=== PATIENT | male | born 1990 | race Caucasian/White ===

== ENCOUNTER 2016-12-25 12:39 | Emergency (ER) | payer SELFPAY ==
--- NOTE | 2016-12-25 13:49 | Emergency Department Report ---
Chief Complaint: Skin Rash Stated Complaint: RASH Time Seen by Provider: 12/25/16 13:44 - HPI History of Present Illness: PT states he is in town visiting grandfather. PT states 2 days ago he noticed a painless sore on his testicle. PT c/o rash x 4 days. PT states he was dx with HIV in 2013 - ROS Review of Systems: + f/ c - dysuria - Exam Vital Signs: Vital Signs 12/25/16 12:42 Temperature 99.3 F Pulse Rate 134 H Respiratory 22 Rate O2 Sat by Pulse 100 Oximetry Physical Exam: PT looks well, non toxic. rash noted to R palm, and trunk MSE screening note: Focused history and physical exam performed. Due to findings the following was ordered: labs ED Disposition for MSE Condition: Stable
[2016-12-25 14:01] VITALS: BP 146/89
[2016-12-25 14:17] LABS: Basophils % (Auto) 0.1 % (0.0-1.8); Eosinophils % (Auto) 0.3 % (0.0-4.3); Hematocrit 40.1 % (35.5-45.6); Hemoglobin 13.7 gm/dl (11.8-15.2); Mean Corpuscular HGB Conc 34 % (32-34); Mean Corpuscular Hemoglobin 32 pg (28-32); Mean Corpuscular Volume 93 fl (84-94); Platelet Count 291 K/mm3 (140-440); Red Blood Count 4.32 M/mm3 (3.65-5.03); Red Cell Distribution Width 12.5 % (13.2-15.2); White Blood Count 8.4 K/mm3 (4.5-11.0)
[2016-12-25 14:31] LABS: Anion Gap 15 mmol/L; BUN/Creatinine Ratio 11.42; Blood Urea Nitrogen 8 mg/dL (9-20); Calcium 9.3 mg/dL (8.4-10.2); Carbon Dioxide 26 mmol/L (22-30); Chloride 100.2 mmol/L (98-107); Glucose 115 mg/dL (75-100); Potassium 3.4 mmol/L (3.6-5.0); Sodium 138 mmol/L (137-145)
[2016-12-25] MEDS ORDERED: BICILLIN L-A IM ONE (15:36)
--- NOTE | 2016-12-25 15:37 | Emergency Department Report ---
- General Chief complaint: Skin Rash Stated complaint: RASH Time Seen by Provider: 12/25/16 13:44 Source: patient Mode of arrival: Ambulatory Limitations: No Limitations - History of Present Illness Initial comments: Patient reports an open ulcer on the left testicle and a rash on his chest and back MD complaint: rash, lesion Onset/Timin -: days(s) Location: chest, back, genitals Severity: severe Severity scale (0 -10): 7 Quality: aching Consistency: constant Improves with: none Worsens with: none Context: other (STI) Associated symptoms: denies other symptoms Treatments Prior to Arrival: none - Related Data Allergies Allergy/AdvReac Type Severity Reaction Status Date / Time No Known Allergies Allergy Unverified 12/25/16 12:42 Abscess Boil HPI - HPI Chief Complaint: Skin Rash Stated Complaint: RASH Time Seen by Provider: 12/25/16 13:44 Allergies/Adverse Reactions: Allergies Allergy/AdvReac Type Severity Reaction Status Date / Time No Known Allergies Allergy Unverified 12/25/16 12:42 ED Review of Systems ROS: Stated complaint: RASH Other details as noted in HPI Constitutional: denies: chills, diaphoresis, fever, malaise, weakness Eyes: denies: eye pain, eye discharge, vision change ENT: denies: ear pain, throat pain, dental pain, hearing loss, epistaxis, congestion Respiratory: denies: cough, orthopnea, shortness of breath, SOB with exertion, SOB at rest, stridor, wheezing Cardiovascular: denies: chest pain, palpitations, dyspnea on exertion, orthopnea Gastrointestinal: denies: abdominal pain, nausea, vomiting, diarrhea, constipation, hematemesis, melena Musculoskeletal: denies: back pain, joint swelling, arthralgia Skin: rash (chest and back), lesions (chest and left testicle). denies: change in color, change in hair/nails, pruritus Neurological: denies: headache, weakness, numbness, paresthesias, confusion Hematological/Lymphatic: denies: easy bleeding ED Past Medical Hx - Past Medical History Previous Medical History?: Yes Hx HIV: Yes - Surgical History Past Surgical History?: No Additional Surgical History: HERNIA - Social History Smoking Status: Current Every Day Smoker Substance Use Type: Alcohol, Marijuana, Prescribed ED Physical Exam - General Limitations: No Limitations General appearance: alert, in no apparent distress - Head Head exam: Present: atraumatic - Eye Eye exam: Present: normal appearance Pupils: Present: normal accommodation - ENT ENT exam: Present: normal exam, normal orophraynx, mucous membranes moist. Absent: mucous membranes dry - Neck Neck exam: Present: normal inspection, full ROM. Absent: tenderness, meningismus, lymphadenopathy, thyromegaly - Respiratory Respiratory exam: Present: normal lung sounds bilaterally. Absent: respiratory distress, wheezes, rales, rhonchi, stridor, chest wall tenderness, accessory muscle use, decreased breath sounds - Cardiovascular Cardiovascular Exam: Present: regular rate, normal rhythm, normal heart sounds. Absent: systolic murmur, diastolic murmur, rubs, gallop - exam: Present: testicular tenderness, other (1 cm open lesion left testicle) . Absent: urethral discharge, scrotal swelling, vertical testicular lie, circumcision - Extremities Exam Extremities exam: Present: normal inspection, full ROM, normal capillary refill. Absent: tenderness, pedal edema, joint swelling, calf tenderness - Back Exam Back exam: Present: normal inspection. Absent: CVA tenderness (R), CVA tenderness (L) - Neurological Exam Neurological exam: Present: alert, oriented X3, CN II-XII intact, normal gait, reflexes normal. Absent: motor sensory deficit - Psychiatric Psychiatric exam: Present: normal affect, normal mood. Absent: depressed, agitated - Skin Skin exam: Present: warm, dry, normal color, rash (maculopapular lesions chest and back), other (1 cm open lesion to mid-sternum chest wall) ED Course Vital Signs 12/25/16 12/25/16 13:46 13:58 Temperature 97.8 F Pulse Rate 87 85 Respiratory 16 Rate Blood Pressure 146/89 Blood Pressure 146/89 [Right] O2 Sat by Pulse 98 98 Oximetry - Reevaluation(s) Reevaluation #1: 12/25/16 16:04 laboratory studies and antibiotic injection ED Medical Decision Making - Lab Data Result diagrams: 12/25/16 14:02 12/25/16 14:02 Lab Results 12/25/16 12/25/16 Range/Units 14:02 14:02 WBC 8.4 (4.5-11.0) K/mm3 RBC 4.32 (3.65-5.03) M/mm3 Hgb 13.7 (11.8-15.2) gm/dl Hct 40.1 (35.5-45.6) % MCV 93 (84-94) fl MCH 32 (28-32) pg MCHC 34 (32-34) % RDW 12.5 L (13.2-15.2) % Plt Count 291 (140-440) K/mm3 Lymph % (Auto) 25.7 (13.4-35.0) % [place] % (Auto) 8.4 H (0.0-7.3) % Eos % (Auto) 0.3 (0.0-4.3) % Baso % (Auto) 0.1 (0.0-1.8) % Lymph # 2.2 (1.2-5.4) K/mm3 [place] # 0.7 (0.0-0.8) K/mm3 Eos # 0.0 (0.0-0.4) K/mm3 Baso # 0.0 (0.0-0.1) K/mm3 Seg Neutrophils % 65.5 (40.0-70.0) % Seg Neutrophils # 5.5 (1.8-7.7) K/mm3 Sodium 138 (137-145) mmol/L Potassium 3.4 L (3.6-5.0) mmol/L Chloride 100.2 (98-107) mmol/L Carbon Dioxide 26 (22-30) mmol/L Anion Gap 15 mmol/L BUN 8 L (9-20) mg/dL Creatinine 0.7 L (0.8-1.5) mg/dL Estimated GFR > 60 ml/min BUN/Creatinine Ratio 11.42 % Glucose 115 H (75-100) mg/dL Calcium 9.3 (8.4-10.2) mg/dL Vital Signs 12/25/16 12/25/16 13:46 13:58 Temperature 97.8 F Pulse Rate 87 85 Respiratory 16 Rate Blood Pressure 146/89 Blood Pressure 146/89 [Right] O2 Sat by Pulse 98 98 Oximetry - Medical Decision Making During the course of ED, laboratory and antibiotic injection were ordered based on physical examination. The RPR will not be resulted until tomorrow. Patient was instructed to follow up at the local health department for further testing of STIs, as well as have sexual partner seek treatment - Differential Diagnosis Syphillis, Chanchroid Critical care attestation.: If time is entered above; I have spent that time in minutes in the direct care of this critically ill patient, excluding procedure time. ED Disposition Clinical Impression: Syphilis Disposition: DC-01 TO HOME OR SELFCARE Is pt being admited?: No Does the pt Need Aspirin: No Condition: Stable Instructions: Syphilis (ED) Additional Instructions: Follow up with the local health department for further evaluation of sexual transmitted infections. Have your sexual partner seek treatment as well. Referrals: PRIMARY CARE, [Primary Care Provider] - 3-5 Days [facility] [Outside] - 3-5 Days [facility] [Outside] - 3-5 Days Forms: Work/School Release Form(ED) Time of Disposition: 16:07
[2016-12-26 11:55] LABS: Rapid Plasma Reagin Reactive (Nonreactive)
[2016-12-26 11:56] LABS: Rapid Plasma Reagin Ab Titer 1:32
== END 2016-12-25 16:18 | disposition home or self-care (01) ==
LOC: ED 12:39
DX: A53.9 Syphilis, unspecified (principal); F17.200 Nicotine dependence, unspecified, uncomplicated; F12.10 Cannabis abuse, uncomplicated
CPT/HCPCS: 36415; 80048; 85025; 86592; 86593; 96372; 99283; J0561

== ENCOUNTER 2017-01-06 11:41 | Inpatient (IN) | payer OTHER ==
--- NOTE | 2017-01-06 13:23 | XRay Report ---
Right knee 3 views: History: Knee swollen and painful. Findings: Large joint effusion. Normal articular surfaces. Bony density at the tibial tuberosity probably an avulsion fracture of tibial tuberosity or avulsion of tibial tuberosity unfused epiphyses. Impression: Findings as detailed above.
[2017-01-06 13:33] LABS: Basophils % (Auto) 0.2 % (0.0-1.8); Eosinophils % (Auto) 0.1 % (0.0-4.3); Hematocrit 36.7 % (35.5-45.6); Hemoglobin 12.3 gm/dl (11.8-15.2); Mean Corpuscular HGB Conc 33 % (32-34); Mean Corpuscular Hemoglobin 31 pg (28-32); Mean Corpuscular Volume 92 fl (84-94); Platelet Count 333 K/mm3 (140-440); Red Blood Count 3.98 M/mm3 (3.65-5.03); Red Cell Distribution Width 12.7 % (13.2-15.2); White Blood Count 10.9 K/mm3 (4.5-11.0)
[2017-01-06 13:43] LABS: INR 1.27 (0.87-1.13)
[2017-01-06 13:48] LABS: Alanine Aminotransferase 24 units/L (7-56); Albumin/Globulin Ratio 0.8 %; Alkaline Phosphatase 81 units/L (35-129); Anion Gap 20 mmol/L; BUN/Creatinine Ratio 7.14; Blood Urea Nitrogen 5 mg/dL (9-20); Carbon Dioxide 24 mmol/L (22-30); Chloride 94.4 mmol/L (98-107); Glucose 89 mg/dL (75-100); Potassium 3.5 mmol/L (3.6-5.0); Sodium 135 mmol/L (137-145); Total Protein 9.3 g/dL (6.3-8.2)
[2017-01-06] MEDS ORDERED: NACL 0.9% 1000 ML 1,000 ML IV ONE (13:54)
[2017-01-06] MEDS ORDERED: ZOFRAN IV ONE (13:56)
[2017-01-06] MEDS ORDERED: MORPHINE IV ONE (13:56)
[2017-01-06] MEDS ORDERED: XYLOCAINE 1% 20 mL INFILTRATI ONE ×2 (14:15→21:00)
[2017-01-06] MEDS ORDERED: MOTRIN PO ONE (14:30)
[2017-01-06] MEDS ORDERED: VANCOMYCIN/NS 1 GM/250 ML 1 GM/250 ML BAG IV ONE (14:36)
[2017-01-06 15:49] LABS: Bilirubin,Urine NEG (Negative); Blood,Urine NEG (Negative); Ketones,Urine NEG (Negative); Leukocyte Esterase,Urine NEG (Negative); Nitrite,Urine NEG (Negative)
[2017-01-06] MEDS ORDERED: SODIUM CHLORIDE FLUSH SYRINGE 10 ML IV PRN (16:43)
[2017-01-06 17:12] LABS: Basophils Body Fluid 0 %; Eosinophils Body Fluid 0 %; Reactive Lymph Body Fluid 0 %
--- NOTE | 2017-01-06 19:31 | Emergency Department Report ---
Entered by PATRICIA WILKERSON, acting as scribe for KORIN REYES NP. <KAY PECK - Last Filed: 01/06/17 18:21> ED Lower Extremity HPI - General Chief Complaint: Extremity Injury, Lower Stated Complaint: right knee pain Time Seen by Provider: 01/06/17 13:50 - Related Data Allergies Allergy/AdvReac Type Severity Reaction Status Date / Time No Known Allergies Allergy Unverified 12/25/16 12:42 ED Review of Systems ROS: Stated complaint: right knee pain Other details as noted in HPI ED Course Vital Signs 01/06/17 01/06/17 12:22 17:25 Temperature 100.5 F H 99.2 F Pulse Rate 95 H 88 Respiratory 20 20 Rate Blood Pressure 160/99 Blood Pressure 136/84 [Left] O2 Sat by Pulse 100 99 Oximetry ED Lower Extremity MDM - Lab Data Result diagrams: 01/06/17 13:11 01/06/17 13:11 - Medical Decision Making I have seen and examined this patient myself. I agree with the PA or [employer] plan as discussed. Patient with fever and significant knee pain. Patient had sudden onset of right knee swelling. No obvious explanation. Very tender to palpation and has difficulty flexing or extending the knee. Arthrocentesis performed and shows WBCs of 36,000. Discussed case with orthopedist office professionals plan treat with IV vancomycin and admitted to the hospitalist service. Jp Peck Critical care attestation.: If time is entered above; I have spent that time in minutes in the direct care of this critically ill patient, excluding procedure time. ED Disposition Clinical Impression: Elevated lactic acid level, Pain and swelling of right knee, Knee effusion, right, HIV (human immunodeficiency virus infection) Fever Qualifiers: Fever type: unspecified Qualified Code(s): R50.9 - Fever, unspecified Disposition: - OP ADMIT IP TO THIS HOSP Condition: Stable <KORIN REYES - Last Filed: 01/06/17 19:30> ED Lower Extremity HPI - General Source: EMS Mode of arrival: Wheelchair Limitations: No Limitations - History of Present Illness Initial Comments: 26 y/o male with PMHx of HIV, presents to the ED c/o right knee pain and swelling x 2 days. Associated symptoms include cough and chills but denies numbness, tingling, nausea and vomiting. Patient was found to be febrile in triage. States he has been having pain since 2 days ago but notice swelling this morning. No alleviating or aggravating factors. NKDA. Denies injury. Patient is unable to bear weight. Recent move from [place]. Currently off antivirals Complaint: other (right knee pain and swelling) Onset/Timin -: days(s) Injury: Knee: Right Type of Injury: unknown Place: home Severity: severe Severity scale (0 -10): 10 Improves With: nothing Worsens With: weight bearing, movement, palpation Context: other (none, pt thought he slept wrong ) Associated Symptoms: swelling, unable to bear weight, other (cough, fever, chills, denies: nausea, vomiting). denies: numbness, tingling ED Review of Systems Comment: All other systems reviewed and negative Constitutional: chills, fever Respiratory: cough Gastrointestinal: denies: nausea, vomiting Musculoskeletal: other (right knee pain and swelling, denies: numbness, tingling ) ED Past Medical Hx - Past Medical History Hx HIV: Yes - Surgical History Additional Surgical History: HERNIA - Social History Smoking Status: Current Every Day Smoker Substance Use Type: Alcohol ED Physical Exam - General Limitations: No Limitations General appearance: alert, in no apparent distress - Head Head exam: Present: atraumatic, normocephalic, normal inspection - Eye Eye exam: Present: normal appearance, PERRL, EOMI. Absent: scleral icterus, conjunctival injection, nystagmus, periorbital swelling, periorbital tenderness Pupils: Present: normal accommodation - ENT ENT exam: Present: normal exam, normal orophraynx, mucous membranes moist, normal external ear exam - Neck Neck exam: Present: normal inspection, full ROM. Absent: tenderness, meningismus, lymphadenopathy, thyromegaly - Respiratory Respiratory exam: Present: normal lung sounds bilaterally. Absent: respiratory distress, wheezes, rales, rhonchi, stridor, chest wall tenderness, accessory muscle use, decreased breath sounds, prolonged expiratory - Cardiovascular Cardiovascular Exam: Present: regular rate, normal rhythm, normal heart sounds. Absent: bradycardia, tachycardia, irregular rhythm, systolic murmur, diastolic murmur, rubs, gallop - GI/Abdominal GI/Abdominal exam: Present: soft, normal bowel sounds. Absent: distended, tenderness, guarding, rebound, rigid, diminished bowel sounds - Extremities Exam Extremities exam: Present: normal capillary refill, other (decreased room of motion to right knee). Absent: normal inspection, full ROM, tenderness, pedal edema, joint swelling, calf tenderness - Expanded Lower Extremity Exam Right Hip exam: Present: normal inspection, full ROM Upper Leg exam: Present: normal inspection, full ROM Knee exam: Present: tenderness, swelling, effusion. Absent: normal inspection, full ROM Lower Leg exam: Present: normal inspection, full ROM Ankle exam: Present: normal inspection, full ROM Foot/Toe exam: Present: normal inspection, full ROM Neuro vascular tendon exam: Present: no vascular compromise Gait: Positive: unable to bear weight - Back Exam Back exam: Present: normal inspection, full ROM. Absent: tenderness, CVA tenderness (R), CVA tenderness (L), muscle spasm, paraspinal tenderness, vertebral tenderness, rash noted - Neurological Exam Neurological exam: Present: alert, oriented X3 - Psychiatric Psychiatric exam: Present: normal affect, normal mood - Skin Skin exam: Present: warm, dry, intact, normal color. Absent: rash ED Course - Reevaluation(s) Reevaluation #1: 01/06/17 14:18 Dr Peck at bedside to evaluate pt. Reevaluation #2: 01/06/17 14:32 PT aware of need for admission. No questions at this time. - Consultations Consultation #1: 01/06/17 15:57 Dr Serrano - admit to hospitalist Consultation #2: 01/06/17 16:04 Dr Vela - to admit 01/06/17 16:42 Dr Vela at bedside - Joint Aspiration/Injection Consent Obtained: verbal consent Indications: R/O septic arthritis Side of Body: right Joint Aspirated: knee Ultrasound Guidance: No Skin Prep: Povidone-Iodine1% Local Anesthesia Used: Lidocaine 1% Amount of Anesthesia Used (mls): 3 Needle Size Used: 18G Syringe Size Used: 10cc Fluid Obtained: turbid Total Fluid Obtained (mls): 10 Patient Tolerated Procedure: well Complications: none - Pulse Oximetry Interpretation Digit-Finger Initial Pulse Oximetry Readin Actions Taken: none ED Lower Extremity MDM - Lab Data Result diagrams: 01/06/17 13:11 01/06/17 13:11 Laboratory Results - last 24 hr 01/06/17 01/06/17 01/06/17 13:11 13:11 13:11 WBC 10.9 RBC 3.98 Hgb 12.3 Hct 36.7 MCV 92 MCH 31 MCHC 33 RDW 12.7 L Plt Count 333 Lymph % (Auto) 23.3 [place] % (Auto) 9.7 H Eos % (Auto) 0.1 Baso % (Auto) 0.2 Lymph # 2.5 [place] # 1.1 H Eos # 0.0 Baso # 0.0 Seg Neutrophils % 66.7 Seg Neutrophils # 7.3 PT 15.8 H INR 1.27 H VBG pH Sodium 135 L Potassium 3.5 L Chloride 94.4 L Carbon Dioxide 24 Anion Gap 20 BUN 5 L Creatinine 0.7 L Estimated GFR > 60 BUN/Creatinine Ratio 7.14 Glucose 89 Lactic Acid Calcium 9.0 Total Bilirubin 1.20 AST 27 ALT 24 Alkaline Phosphatase 81 Total Protein 9.3 H Albumin 4.0 Albumin/Globulin Ratio 0.8 Urine Color Urine Turbidity Urine pH Ur Specific [place] Urine Protein Urine Glucose (UA) Urine Ketones Urine Blood Urine Nitrite Urine Bilirubin Urine Urobilinogen Ur Leukocyte Esterase Urine WBC (Auto) Urine RBC (Auto) Fluid Type Fluid Color Fluid Appearance Fluid WBC Fluid RBC Fluid Seg Neutrophils Fluid Lymphocytes Fluid Reactive Lymphs Fluid Monocytes Fluid Eosinophils Fluid Basophils Synovial Crystals 01/06/17 01/06/17 01/06/17 13:11 13:11 14:40 WBC RBC Hgb Hct MCV MCH MCHC RDW Plt Count Lymph % (Auto) [place] % (Auto) Eos % (Auto) Baso % (Auto) Lymph # [place] # Eos # Baso # Seg Neutrophils % Seg Neutrophils # PT INR VBG pH 7.415 Sodium Potassium Chloride Carbon Dioxide Anion Gap BUN Creatinine Estimated GFR BUN/Creatinine Ratio Glucose Lactic Acid 2.40 H* Calcium Total Bilirubin AST ALT Alkaline Phosphatase Total Protein Albumin Albumin/Globulin Ratio Urine Color Urine Turbidity Urine pH Ur Specific [place] Urine Protein Urine Glucose (UA) Urine Ketones Urine Blood Urine Nitrite Urine Bilirubin Urine Urobilinogen Ur Leukocyte Esterase Urine WBC (Auto) Urine RBC (Auto) Fluid Type Synovial Fluid Color Straw Fluid Appearance Cloudy Fluid WBC 54145 Fluid RBC 74280 Fluid Seg Neutrophils 95.0 Fluid Lymphocytes 4.0 Fluid Reactive Lymphs 0 Fluid Monocytes 1.0 Fluid Eosinophils 0 Fluid Basophils 0 Synovial Crystals Negative 01/06/17 14:50 WBC RBC Hgb Hct MCV MCH MCHC RDW Plt Count Lymph % (Auto) [place] % (Auto) Eos % (Auto) Baso % (Auto) Lymph # [place] # Eos # Baso # Seg Neutrophils % Seg Neutrophils # PT INR VBG pH Sodium Potassium Chloride Carbon Dioxide Anion Gap BUN Creatinine Estimated GFR BUN/Creatinine Ratio Glucose Lactic Acid Calcium Total Bilirubin AST ALT Alkaline Phosphatase Total Protein Albumin Albumin/Globulin Ratio Urine Color Yellow Urine Turbidity Clear Urine pH 6.0 Ur Specific [place] 1.016 Urine Protein 30 mg/dl Urine Glucose (UA) Neg Urine Ketones Neg Urine Blood Neg Urine Nitrite Neg Urine Bilirubin Neg Urine Urobilinogen 4.0 Ur Leukocyte Esterase Neg Urine WBC (Auto) 7.0 H Urine RBC (Auto) 5.0 Fluid Type Fluid Color Fluid Appearance Fluid WBC Fluid RBC Fluid Seg Neutrophils Fluid Lymphocytes Fluid Reactive Lymphs Fluid Monocytes Fluid Eosinophils Fluid Basophils Synovial Crystals - EKG Data -: EKG Interpreted by Me (and ED MD ) EKG shows normal: sinus rhythm Rate: normal - EKG Data When compared to previous EKG there are: previous EKG unavailable - Radiology Data Radiology results: report reviewed XR R - Knee - large joint effusion - Differential Diagnosis septic joint, oa, cellulitis ED Disposition Is pt being admited?: No Does the pt Need Aspirin: No Time of Disposition: 16:43 This documentation as recorded by the ROCK coyle ELIZABETH,accurately reflects the service I personally performed and the decisions made by ERIC lisa TRACY M, NP.
[2017-01-06] MEDS ORDERED: MILK OF MAGNESIA PO PRN (20:40)
[2017-01-06] MEDS ORDERED: DULCOLAX PR PRN (20:40)
--- NOTE | 2017-01-06 20:40 | History and Physical Report ---
History of Present Illness Date of examination: 01/06/17 Date of admission: 01/06/17 16:43 Chief complaint: Rt Knee pain 2 days History of present illness: History of Present Illness Initial Comments: 26 y/o male with PMHx of HIV, presents to the ED c/o right knee pain and swelling x 2 days. Associated symptoms include cough and chills but denies numbness, tingling, nausea and vomiting. Patient was found to be febrile in triage. States he has been having pain since 2 days ago but notice swelling this morning. No alleviating or aggravating factors. NKDA. Denies injury. Patient is unable to bear weight. Recent move from [place]. Currently off antivirals Complaint: other (right knee pain and swelling) Onset/Timin -: days(s) Injury: Knee: Right Type of Injury: unknown Place: home Severity: severe Severity scale (0 -10): 10 Improves With: nothing Worsens With: weight bearing, movement, palpation Context: other (none, pt thought he slept wrong ) Associated Symptoms: swelling, unable to bear weight, other (cough, fever, chills, denies: nausea, vomiting). denies: numbness, tingling Review of Systems Comment: All other systems reviewed and negative Constitutional: chills, fever Respiratory: cough Gastrointestinal: denies: nausea, vomiting Musculoskeletal: other (right knee pain and swelling, denies: numbness, tingling ) - Past Medical History Hx HIV: Yes - Surgical History Additional Surgical History: HERNIA - Social History Smoking Status: Current Every Day Smoker Substance Use Type: Alcohol Fam Hx HTN Medications and Allergies Allergies Allergy/AdvReac Type Severity Reaction Status Date / Time No Known Allergies Allergy Unverified 12/25/16 12:42 Active Meds: Active Medications Sodium Chloride (Sodium Chloride Flush Syringe 10 Ml) 10 ml IV PRN PRN PRN Reason: LINE FLUSH Exam - Constitutional Vitals: Temp Pulse Resp BP Pulse Ox 99.2 F 88 20 136/84 99 01/06/17 17:25 01/06/17 17:25 01/06/17 17:25 01/06/17 17:25 01/06/17 17:25 General appearance: Present: no acute distress, well-nourished - EENT Eyes: Present: PERRL ENT: hearing intact, clear oral mucosa - Neck Neck: Present: supple, normal ROM - Respiratory Respiratory effort: normal Respiratory: bilateral: CTA - Cardiovascular Heart rate: 75 Rhythm: regular Heart Sounds: Present: S1 & S2. Absent: rub, click - Extremities Extremities: no ischemia, pulses intact, pulses symmetrical, No edema, abnormal (Rt Knee swollen and tender.Warm to touch.) Extremity abnormal: tenderness (Rt Knee swelling plus) Peripheral Pulses: within normal limits - Abdominal General gastrointestinal: Present: soft, non-tender, non-distended, normal bowel sounds Male genitourinary: Present: normal - Integumentary Integumentary: Present: clear, warm, dry - Musculoskeletal Musculoskeletal: gait normal, strength equal bilaterally - Psychiatric Psychiatric: appropriate mood/affect, intact judgment & insight - Neurologic Neurologic: CNII-XII intact, moves all extremities Results - Labs CBC & Chem 7: 01/06/17 13:11 01/06/17 13:11 Labs: Laboratory Last Values WBC 10.9 K/mm3 (4.5-11.0) 01/06/17 13:11 RBC 3.98 M/mm3 (3.65-5.03) 01/06/17 13:11 Hgb 12.3 gm/dl (11.8-15.2) 01/06/17 13:11 Hct 36.7 % (35.5-45.6) 01/06/17 13:11 MCV 92 fl (84-94) 01/06/17 13:11 MCH 31 pg (28-32) 01/06/17 13:11 MCHC 33 % (32-34) 01/06/17 13:11 RDW 12.7 % (13.2-15.2) L 01/06/17 13:11 Plt Count 333 K/mm3 (140-440) 01/06/17 13:11 Lymph % (Auto) 23.3 % (13.4-35.0) 01/06/17 13:11 [place] % (Auto) 9.7 % (0.0-7.3) H 01/06/17 13:11 Eos % (Auto) 0.1 % (0.0-4.3) 01/06/17 13:11 Baso % (Auto) 0.2 % (0.0-1.8) 01/06/17 13:11 Lymph # 2.5 K/mm3 (1.2-5.4) 01/06/17 13:11 [place] # 1.1 K/mm3 (0.0-0.8) H 01/06/17 13:11 Eos # 0.0 K/mm3 (0.0-0.4) 01/06/17 13:11 Baso # 0.0 K/mm3 (0.0-0.1) 01/06/17 13:11 Seg Neutrophils % 66.7 % (40.0-70.0) 01/06/17 13:11 Seg Neutrophils # 7.3 K/mm3 (1.8-7.7) 01/06/17 13:11 PT 15.8 Sec. (12.2-14.9) H 01/06/17 13:11 INR 1.27 (0.87-1.13) H 01/06/17 13:11 VBG pH 7.415 (7.320-7.420) 01/06/17 13:11 Sodium 135 mmol/L (137-145) L 01/06/17 13:11 Potassium 3.5 mmol/L (3.6-5.0) L 01/06/17 13:11 Chloride 94.4 mmol/L (98-107) L 01/06/17 13:11 Carbon Dioxide 24 mmol/L (22-30) 01/06/17 13:11 Anion Gap 20 mmol/L 01/06/17 13:11 BUN 5 mg/dL (9-20) L 01/06/17 13:11 Creatinine 0.7 mg/dL (0.8-1.5) L 01/06/17 13:11 Estimated GFR > 60 ml/min 01/06/17 13:11 BUN/Creatinine Ratio 7.14 % 01/06/17 13:11 Glucose 89 mg/dL (75-100) 01/06/17 13:11 Lactic Acid 0.80 mmol/L (0.7-2.0) 01/06/17 20:00 Calcium 9.0 mg/dL (8.4-10.2) 01/06/17 13:11 Total Bilirubin 1.20 mg/dL (0.1-1.2) 01/06/17 13:11 AST 27 units/L (5-40) 01/06/17 13:11 ALT 24 units/L (7-56) 01/06/17 13:11 Alkaline Phosphatase 81 units/L (35-129) 01/06/17 13:11 Total Protein 9.3 g/dL (6.3-8.2) H 01/06/17 13:11 Albumin 4.0 g/dL (3.9-5) 01/06/17 13:11 Albumin/Globulin Ratio 0.8 % 01/06/17 13:11 Urine Color Yellow (Yellow) 01/06/17 14:50 Urine Turbidity Clear (Clear) 01/06/17 14:50 Urine pH 6.0 (5.0-7.0) 01/06/17 14:50 Ur Specific [place] 1.016 (1.003-1.030) 01/06/17 14:50 Urine Protein 30 mg/dl mg/dL (Negative) 01/06/17 14:50 Urine Glucose (UA) Neg mg/dL (Negative) 01/06/17 14:50 Urine Ketones Neg mg/dL (Negative) 01/06/17 14:50 Urine Blood Neg (Negative) 01/06/17 14:50 Urine Nitrite Neg (Negative) 01/06/17 14:50 Urine Bilirubin Neg (Negative) 01/06/17 14:50 Urine Urobilinogen 4.0 mg/dL (<2.0) 01/06/17 14:50 Ur Leukocyte Esterase Neg (Negative) 01/06/17 14:50 Urine WBC (Auto) 7.0 /HPF (0.0-6.0) H 01/06/17 14:50 Urine RBC (Auto) 5.0 /HPF (0.0-6.0) 01/06/17 14:50 Fluid Type Synovial 01/06/17 14:40 Fluid Color Straw 01/06/17 14:40 Fluid Appearance Cloudy 01/06/17 14:40 Fluid WBC 50345 /mm3 01/06/17 14:40 Fluid RBC 81675 /mm3 01/06/17 14:40 Fluid Seg Neutrophils 95.0 % 01/06/17 14:40 Fluid Lymphocytes 4.0 % 01/06/17 14:40 Fluid Reactive Lymphs 0 % 01/06/17 14:40 Fluid Monocytes 1.0 % 01/06/17 14:40 Fluid Eosinophils 0 % 01/06/17 14:40 Fluid Basophils 0 % 01/06/17 14:40 Synovial Crystals Negative (NONE SEEN) 01/06/17 14:40 - Imaging and Cardiology Imaging and Cardiology: Rt Knee xray -Large joint effusion Assessment and Plan Advance Directives: Yes (Full code) Plan of care discussed with patient/family: Yes - Patient Problems (1) Septic arthritis Current Visit: Yes Status: Acute Qualifiers: Septic arthritis location: knee Septic arthritis organism: S Laterality: right Plan to address problem: Orthopedics Dr Serrano consulted. IV Unasyn and Vancomycin initiated (2) HIV (human immunodeficiency virus infection) Current Visit: Yes Status: Chronic Plan to address problem: Not on any anti retrovirals.Moved from [place] recently. To f/u with ID clinic as out patient (3) DVT prophylaxis Current Visit: Yes Status: Acute Plan to address problem: on Heparin
--- NOTE | 2017-01-06 21:14 | Consultation ---
History of Present Illness - [facility] Consult date: 01/06/17 Consult reason: joint pain History of present illness: 26-year-old male who complains of severe right knee pain and swelling past couple days patient denies a history of trauma or previous episodes, he also denies a history of gout or other rheumatological problems. Patient is HIV positive Medications and Allergies Allergies Allergy/AdvReac Type Severity Reaction Status Date / Time No Known Allergies Allergy Unverified 12/25/16 12:42 Active Meds: Active Medications Acetaminophen (Tylenol) 650 mg PO Q4H PRN PRN Reason: Pain MILD(1-3)/Fever >100.5/SINGH Bisacodyl (Dulcolax) 10 mg IA QDAY PRN PRN Reason: Constipation unrelieved by MOM Hydromorphone HCl (Dilaudid) 1 mg IV Q3H PRN PRN Reason: Pain , Severe (7-10) Ampicillin Sodium/Sulbactam Sodium (Unasyn/Ns 3 Gm/100 Ml) 3 gm in 100 mls @ 100 mls/hr IV Q6HR BRIANNE PRN Reason: Protocol Magnesium Hydroxide (Milk Of Magnesia) 30 ml PO Q4H PRN PRN Reason: Constipation Ondansetron HCl (Zofran) 4 mg IV Q8H PRN PRN Reason: N/V unrelieved by Reglan Oxycodone/Acetaminophen (Percocet 5/325) 1 tab PO Q6H PRN PRN Reason: Pain, Moderate (4-6) Sodium Chloride (Sodium Chloride Flush Syringe 10 Ml) 10 ml IV PRN PRN PRN Reason: LINE FLUSH Vancomycin HCl (Vancomycin Pharmacy To Dose) 1 each IV PKCONSULT BRIANNE PRN Reason: Protocol Physical Examination - Physical exam Narrative exam: On physical examination the right knee is noted to have 2-3+ effusion tenderness on passive range of motion. No overlying redness or erythema he is warm to touch Assessment and Plan Right knee swelling and pain Recommendations - approximately 120 mL aspirated from the right knee. Yellow and somewhat turbid and, suspect inflammatory etiology
[2017-01-06] MEDS: DILAUDID IV PRN (21:37)
[2017-01-06] MEDS ORDERED: VANCOMYCIN PHARMACY TO DOSE IV SCH (22:00)
[2017-01-07] MEDS ORDERED: VANCOMYCIN/NS 1 GM/250 ML 1 GM/250 ML BAG IV ONE
[2017-01-07] MEDS: UNASYN/NS 3 GM/100 ML 3 GM/100 ML BAG IV SCH ×5 (00:29→23:34)
[2017-01-07] MEDS: DILAUDID IV PRN ×4 (00:43→21:59)
[2017-01-07] MEDS: PERCOCET 5/325 PO PRN ×2 (04:54→18:20)
--- NOTE | 2017-01-07 07:41 | Admit Criteria Form ---
Admission Criteria Documentation: MUSCULOSKELETAL DISEASE GRG Clinical Indications for Admission to Inpatient Care (Place 'X' for any and all applicable criteria): Hospital admission is needed for appropriate care of the patient because of 1 or more of the following: [ ]I. Fracture, dislocation, or other musculoskeletal injury requiring inpatient care(medical) as indicated by 1 or more of the following(4)(5)(6)(7) [ ]a) Vertebral fracture requiring observation for instability or neurologic compromise (8) [ ]b) Compartment syndrome (proven or cannot be ruled out during observation level of care) (9) [ ]c) Limb-threatening injury [ ]d) Major injury requiring inpatient stabilization such as traction initiation or external fixation before internal fixation or closure of complex or open fracture [ ]e) Major injury requiring inpatient treatment after emergency or observation level care (as appropriate) [ ]f) Severe pain requiring acute inpatient management [ ]g) Injury with suspicion of abuse or neglect (eg., child, dependent elderly) [ ]II. Newly diagnosed or suspected bone, joint, or orthopedic device infection (e.g., osteomyelitis, septic arthritis) needing 1 or more of the following(1)(2)(3) [ ]a) IV antibiotics that cannot be initiated in other than inpatient setting (e.g., patient too unstable or home infusion not available) [ ]b) Device removal or replacement [ ]c) Bone or soft tissue debridement [ ]d) Joint drainage (drain placement or repetitive aspirations) [ ]III. Severe rheumatologic disease (e.g., systemic lupus erythematosus, rheumatoid arthritis) with complications or comorbidities (Also use Optimal Recovery Care Criteria or General Recovery Criteria as appropriate on the basis of predominant condition), including 1 or more of the following( 10)(11)(12)(13) [ ]a) Severe infection (e.g., [employer] infection, sepsis) (14) [ ]b) Respiratory complications, including 1 or more of the following : [ ]i) Pleural effusion with respiratory compromise [ ]ii) Pulmonary hypertension with congestive failure [ ]iii) Respiratory failure [ ]iv) Pulmonary hemorrhage (15) [ ]c) Hematologic disease, including 1 or more of the following: [ ]i) Coagulopathy with bleeding [ ]ii) Thrombosis with hypercoagulable state [ ]iii) Thrombotic thrombocytopenic purpura [ ]d) Cerebritis with seizures, psychosis, or other severe abnormalities [ ]e) Vertebral destruction with monitoring needed for cervical myelopathy& possible respiratory compromise [ ]f) Exacerbation that requires inpatient treatment (e.g., intravenous immunosuppression) (16) [ ]g) Acute renal failure [ ]h) Cerebritis with seizures, psychosis, Altered mental status, or other neurologic abnormalities [ ]i) Pericardial effusion with tamponade [ ]j) Vertebral destruction, with monitoring needed for cervical myelopathy and possible respiratory compromise [ ]IV. Severe vasculitis with complications or comorbidities (Also use Optimal Recovery Care Criteria General Recovery Criteria as appropriate on the basis of predominant condition), including 1 or more of the following(11)(12)(17)(18)(19)(20) [ ]a) Exacerbation that requires inpatient treatment (e.g., intravenous immunosuppression) (19)(21) [ ]b) Pulmonary hemorrhage (15) [ ]c) [employer] vasculitis with seizures, psychosis, Altered mental status that is severe or persistent, or other severe abnormalities (22) [ ]d) Cerebral infarction [ ]e) Gastrointestinal ischemia [ ]f) Gangrene or threatened amputation [ ]g) Renal failure (16) [ ]h) Other significant complications of vasculitis ( eg., tissue or organ ischemia, organ dysfunction ) [ ]V. Severe myopathy as indicated by 1 or more of the following (28)(29) [ ]a) New onset of airway compromise or inability to swallow [ ]b) Respiratory deterioration with observation needed for impending respiratory failure [ ]c) Exacerbation that requires inpatient treatment (e.g., intravenous immunosuppression) [ ]. Severe crystal gout (arthropathy) indicated by 1 or more of the following (23)(24) [ ]a) Severe pain requiring acute inpatient management [ ]b) Exacerbation that requires inpatient treatment (e.g., intravenous treatment) [ ]VII.Rhabdomyolysis and 1 or more of the following (25)(26)(27) [ ]a) Acute renal failure [ ]b) Need for intravenous hydration after emergency or observation level care (as appropriate) [ ]c) Inability to maintain oral hydration [ ]d) Change in mental status [ ]e) Electrolyte abnormality that remains after emergency or observation level care (as appropriate) [ ]VIII Post amputation complication, as indicated by ANY ONE of the following [ ]a) Infection [ ]b) Dehiscence [ ]c) Myodesis failure [X]IX. Severe pain requiring acute inpatient management due to musculoskeletal condition [ ]X. Musculoskeletal Disease and ALL of the following: [ ]a) Symptom or finding for which emergency and observation care have failed or are not considered appropriate (Use General Criteria: Observation Care as appropriate) [ ]b) Presence of ANY ONE of the following [ ]i) A General Admission Criteria [ ]ii) A Pediatric General Admission Criteria The original [facility] content created by [employer] has been revised. The portions of the content which have been revised are identified through the use of italic text or in bold, and [facility] has neither reviewed nor approved the modified material. All other unmodified content is copyright [facility] [email or web address]. Please see references footnoted in the original [facility] edition 2016 Admission Criteria Met: Yes
[2017-01-07] MEDS ORDERED: VANCOMYCIN 1,750 MG in NACL 0.9% 500 ML 500 ML IV SCH (08:00)
[2017-01-07] MEDS: HEPARIN SUB-Q SCH ×2 (08:59→21:43)
[2017-01-07 09:32] LABS: Hematocrit 34.4 % (35.5-45.6); Hemoglobin 11.5 gm/dl (11.8-15.2); Mean Corpuscular HGB Conc 34 % (32-34); Mean Corpuscular Hemoglobin 31 pg (28-32); Mean Corpuscular Volume 92 fl (84-94); Platelet Count 270 K/mm3 (140-440); Red Blood Count 3.74 M/mm3 (3.65-5.03); Red Cell Distribution Width 12.8 % (13.2-15.2); White Blood Count 8.2 K/mm3 (4.5-11.0)
--- NOTE | 2017-01-07 09:39 | XRay Report ---
Single view chest: History: Fever, cough. Findings Normal cardiomediastinal silhouette. Trachea is midline. No consolidation, pneumothorax or pleural effusion. Impression: No acute cardiopulmonary findings.
[2017-01-07 09:47] LABS: Anion Gap 17 mmol/L; Blood Urea Nitrogen 6 mg/dL (9-20); Calcium 8.5 mg/dL (8.4-10.2); Carbon Dioxide 28 mmol/L (22-30); Chloride 90.3 mmol/L (98-107); Glucose 103 mg/dL (75-100); Potassium 3.1 mmol/L (3.6-5.0); Sodium 132 mmol/L (137-145)
[2017-01-07] MEDS: K-DUR PO SCH ×2 (14:12→18:20)
[2017-01-07] MEDS: VANCOMYCIN 1,500 MG in NACL 0.9% 500 ML 500 ML IV SCH ×2 (14:13→21:43)
[2017-01-07] MEDS ORDERED: VASELINE LIP THERAPY TP PRN (14:36)
--- NOTE | 2017-01-07 15:47 | Progress Note ---
Assessment and Plan Assessment and plan: Right knee pain. To rule out septic arthritis. Synovial fluid analysis ongoing. On Unasyn and Vancomycin empiric. He was evaluated by Dr. Serrano, Ortho Hyponatremia. IV fluid with Normal saline Hypokalemia. replace orally and recheck HIV infection. Full code status. History Interval history: Patient with HIV with Pain and swelling right knee Hospitalist Physical - Physical exam Narrative exam: Gen Appearance: Not in acute distress, HEENT: normocephalic, atraumatic Neck: supple, no JVD Lungs: clear to auscultation bilaterally, no crackles or wheezes Heart: S1 and S2 regular, no murmurs or gallop Abdomen: Soft , non tender, non distended, normal bowel sounds Extremity: Left knee swollen, wrapped with bandage, no clubbing or cyanosis Neuro : Awake, alert,oriented x 3, moves all extremities Psych:Normal mood - Constitutional Vitals: Temp Pulse Resp BP Pulse Ox 101.9 F H 103 H 20 143/85 94 01/07/17 14:59 01/07/17 14:59 01/07/17 14:59 01/07/17 14:59 01/07/17 14:59 General appearance: Present: no acute distress, well-nourished Results - Labs CBC & Chem 7: 01/07/17 09:15 01/07/17 09:15 Labs: Laboratory Last Values WBC 8.2 K/mm3 (4.5-11.0) 01/07/17 09:15 RBC 3.74 M/mm3 (3.65-5.03) 01/07/17 09:15 Hgb 11.5 gm/dl (11.8-15.2) L 01/07/17 09:15 Hct 34.4 % (35.5-45.6) L 01/07/17 09:15 MCV 92 fl (84-94) 01/07/17 09:15 MCH 31 pg (28-32) 01/07/17 09:15 MCHC 34 % (32-34) 01/07/17 09:15 RDW 12.8 % (13.2-15.2) L 01/07/17 09:15 Plt Count 270 K/mm3 (140-440) 01/07/17 09:15 Lymph % (Auto) 23.3 % (13.4-35.0) 01/06/17 13:11 [place] % (Auto) 9.7 % (0.0-7.3) H 01/06/17 13:11 Eos % (Auto) 0.1 % (0.0-4.3) 01/06/17 13:11 Baso % (Auto) 0.2 % (0.0-1.8) 01/06/17 13:11 Lymph # 2.5 K/mm3 (1.2-5.4) 01/06/17 13:11 [place] # 1.1 K/mm3 (0.0-0.8) H 01/06/17 13:11 Eos # 0.0 K/mm3 (0.0-0.4) 01/06/17 13:11 Baso # 0.0 K/mm3 (0.0-0.1) 01/06/17 13:11 Seg Neutrophils % 66.7 % (40.0-70.0) 01/06/17 13:11 Seg Neutrophils # 7.3 K/mm3 (1.8-7.7) 01/06/17 13:11 PT 15.8 Sec. (12.2-14.9) H 01/06/17 13:11 INR 1.27 (0.87-1.13) H 01/06/17 13:11 VBG pH 7.415 (7.320-7.420) 01/06/17 13:11 Sodium 132 mmol/L (137-145) L 01/07/17 09:15 Potassium 3.1 mmol/L (3.6-5.0) L 01/07/17 09:15 Chloride 90.3 mmol/L (98-107) L 01/07/17 09:15 Carbon Dioxide 28 mmol/L (22-30) 01/07/17 09:15 Anion Gap 17 mmol/L 01/07/17 09:15 BUN 6 mg/dL (9-20) L 01/07/17 09:15 Creatinine 0.6 mg/dL (0.8-1.5) L 01/07/17 09:15 Estimated GFR > 60 ml/min 01/07/17 09:15 BUN/Creatinine Ratio 10.00 % 01/07/17 09:15 Glucose 103 mg/dL (75-100) H 01/07/17 09:15 Lactic Acid 0.80 mmol/L (0.7-2.0) 01/06/17 20:00 Uric Acid 5.3 mg/dL (3.5-7.6) 01/06/17 13:11 Calcium 8.5 mg/dL (8.4-10.2) 01/07/17 09:15 Total Bilirubin 1.20 mg/dL (0.1-1.2) 01/06/17 13:11 AST 27 units/L (5-40) 01/06/17 13:11 ALT 24 units/L (7-56) 01/06/17 13:11 Alkaline Phosphatase 81 units/L (35-129) 01/06/17 13:11 Total Protein 9.3 g/dL (6.3-8.2) H 01/06/17 13:11 Albumin 4.0 g/dL (3.9-5) 01/06/17 13:11 Albumin/Globulin Ratio 0.8 % 01/06/17 13:11 Urine Color Yellow (Yellow) 01/06/17 14:50 Urine Turbidity Clear (Clear) 01/06/17 14:50 Urine pH 6.0 (5.0-7.0) 01/06/17 14:50 Ur Specific [place] 1.016 (1.003-1.030) 01/06/17 14:50 Urine Protein 30 mg/dl mg/dL (Negative) 01/06/17 14:50 Urine Glucose (UA) Neg mg/dL (Negative) 01/06/17 14:50 Urine Ketones Neg mg/dL (Negative) 01/06/17 14:50 Urine Blood Neg (Negative) 01/06/17 14:50 Urine Nitrite Neg (Negative) 01/06/17 14:50 Urine Bilirubin Neg (Negative) 01/06/17 14:50 Urine Urobilinogen 4.0 mg/dL (<2.0) 01/06/17 14:50 Ur Leukocyte Esterase Neg (Negative) 01/06/17 14:50 Urine WBC (Auto) 7.0 /HPF (0.0-6.0) H 01/06/17 14:50 Urine RBC (Auto) 5.0 /HPF (0.0-6.0) 01/06/17 14:50 Fluid Type Synovial 01/06/17 14:40 Fluid Color Straw 01/06/17 14:40 Fluid Appearance Cloudy 01/06/17 14:40 Fluid WBC 99243 /mm3 01/06/17 14:40 Fluid RBC 49326 /mm3 01/06/17 14:40 Fluid Seg Neutrophils 95.0 % 01/06/17 14:40 Fluid Lymphocytes 4.0 % 01/06/17 14:40 Fluid Reactive Lymphs 0 % 01/06/17 14:40 Fluid Monocytes 1.0 % 01/06/17 14:40 Fluid Eosinophils 0 % 01/06/17 14:40 Fluid Basophils 0 % 01/06/17 14:40 Synovial Crystals Negative (NONE SEEN) 01/06/17 14:40
[2017-01-07] MEDS: TYLENOL PO PRN ×2 (16:08→22:11)
[2017-01-07] MEDS: NACL 0.9% 1000 ML 1,000 ML IV SCH (23:33)
[2017-01-08] MEDS: PERCOCET 5/325 PO PRN ×3 (05:57→22:12)
[2017-01-08] MEDS: UNASYN/NS 3 GM/100 ML 3 GM/100 ML BAG IV SCH ×3 (05:59→17:45)
[2017-01-08] MEDS: VANCOMYCIN 1,500 MG in NACL 0.9% 500 ML 500 ML IV SCH ×3 (06:30→22:05)
[2017-01-08 08:26] LABS: Anion Gap 18 mmol/L; Blood Urea Nitrogen 5 mg/dL (9-20); Calcium 8.2 mg/dL (8.4-10.2); Carbon Dioxide 24 mmol/L (22-30); Chloride 96.5 mmol/L (98-107); Glucose 90 mg/dL (75-100); Potassium 3.2 mmol/L (3.6-5.0); Sodium 135 mmol/L (137-145)
[2017-01-08] MEDS: HEPARIN SUB-Q SCH ×2 (10:19→22:07)
--- NOTE | 2017-01-08 11:11 | Progress Note ---
Assessment and Plan Assessment and plan: Right knee pain. To rule out septic arthritis. Synovial fluid analysis ongoing. On Unasyn and Vancomycin empiric. He was evaluated by Dr. Serrano, Ortho Abscess left buttock. wound nurse consulted. Continue vancomycin Hyponatremia. IV fluid with Normal saline Hypokalemia. replace orally and recheck HIV infection. Full code status. History Interval history: Patient with HIV with Pain and swelling right knee, abscess left buttock Hospitalist Physical - Physical exam Narrative exam: Gen Appearance: Not in acute distress, HEENT: normocephalic, atraumatic Neck: supple, no JVD Lungs: clear to auscultation bilaterally, no crackles or wheezes Heart: S1 and S2 regular, no murmurs or gallop Abdomen: Soft , non tender, non distended, normal bowel sounds Extremity: Left knee swollen, no clubbing or cyanosis Neuro : Awake, alert,oriented x 3, moves all extremities Psych:Normal mood Buttock: abscess left buttock - Constitutional Vitals: Temp Pulse Resp BP Pulse Ox 99.7 F H 95 H 20 143/79 94 01/08/17 07:33 01/08/17 07:33 01/08/17 07:33 01/08/17 07:33 01/08/17 07:33 General appearance: Present: no acute distress, well-nourished Results - Labs CBC & Chem 7: 01/07/17 09:15 01/08/17 07:48 Labs: Laboratory Last Values WBC 8.2 K/mm3 (4.5-11.0) 01/07/17 09:15 RBC 3.74 M/mm3 (3.65-5.03) 01/07/17 09:15 Hgb 11.5 gm/dl (11.8-15.2) L 01/07/17 09:15 Hct 34.4 % (35.5-45.6) L 01/07/17 09:15 MCV 92 fl (84-94) 01/07/17 09:15 MCH 31 pg (28-32) 01/07/17 09:15 MCHC 34 % (32-34) 01/07/17 09:15 RDW 12.8 % (13.2-15.2) L 01/07/17 09:15 Plt Count 270 K/mm3 (140-440) 01/07/17 09:15 Lymph % (Auto) 23.3 % (13.4-35.0) 01/06/17 13:11 [place] % (Auto) 9.7 % (0.0-7.3) H 01/06/17 13:11 Eos % (Auto) 0.1 % (0.0-4.3) 01/06/17 13:11 Baso % (Auto) 0.2 % (0.0-1.8) 01/06/17 13:11 Lymph # 2.5 K/mm3 (1.2-5.4) 01/06/17 13:11 [place] # 1.1 K/mm3 (0.0-0.8) H 01/06/17 13:11 Eos # 0.0 K/mm3 (0.0-0.4) 01/06/17 13:11 Baso # 0.0 K/mm3 (0.0-0.1) 01/06/17 13:11 Seg Neutrophils % 66.7 % (40.0-70.0) 01/06/17 13:11 Seg Neutrophils # 7.3 K/mm3 (1.8-7.7) 01/06/17 13:11 PT 15.8 Sec. (12.2-14.9) H 01/06/17 13:11 INR 1.27 (0.87-1.13) H 01/06/17 13:11 VBG pH 7.415 (7.320-7.420) 01/06/17 13:11 Sodium 135 mmol/L (137-145) L 01/08/17 07:48 Potassium 3.2 mmol/L (3.6-5.0) L 01/08/17 07:48 Chloride 96.5 mmol/L (98-107) L 01/08/17 07:48 Carbon Dioxide 24 mmol/L (22-30) 01/08/17 07:48 Anion Gap 18 mmol/L 01/08/17 07:48 BUN 5 mg/dL (9-20) L 01/08/17 07:48 Creatinine 0.5 mg/dL (0.8-1.5) L 01/08/17 07:48 Estimated GFR > 60 ml/min 01/08/17 07:48 BUN/Creatinine Ratio 10.00 % 01/08/17 07:48 Glucose 90 mg/dL (75-100) 01/08/17 07:48 Lactic Acid 0.80 mmol/L (0.7-2.0) 01/06/17 20:00 Uric Acid 5.3 mg/dL (3.5-7.6) 01/06/17 13:11 Calcium 8.2 mg/dL (8.4-10.2) L 01/08/17 07:48 Total Bilirubin 1.20 mg/dL (0.1-1.2) 01/06/17 13:11 AST 27 units/L (5-40) 01/06/17 13:11 ALT 24 units/L (7-56) 01/06/17 13:11 Alkaline Phosphatase 81 units/L (35-129) 01/06/17 13:11 Total Protein 9.3 g/dL (6.3-8.2) H 01/06/17 13:11 Albumin 4.0 g/dL (3.9-5) 01/06/17 13:11 Albumin/Globulin Ratio 0.8 % 01/06/17 13:11 Urine Color Yellow (Yellow) 01/06/17 14:50 Urine Turbidity Clear (Clear) 01/06/17 14:50 Urine pH 6.0 (5.0-7.0) 01/06/17 14:50 Ur Specific [place] 1.016 (1.003-1.030) 01/06/17 14:50 Urine Protein 30 mg/dl mg/dL (Negative) 01/06/17 14:50 Urine Glucose (UA) Neg mg/dL (Negative) 01/06/17 14:50 Urine Ketones Neg mg/dL (Negative) 01/06/17 14:50 Urine Blood Neg (Negative) 01/06/17 14:50 Urine Nitrite Neg (Negative) 01/06/17 14:50 Urine Bilirubin Neg (Negative) 01/06/17 14:50 Urine Urobilinogen 4.0 mg/dL (<2.0) 01/06/17 14:50 Ur Leukocyte Esterase Neg (Negative) 01/06/17 14:50 Urine WBC (Auto) 7.0 /HPF (0.0-6.0) H 01/06/17 14:50 Urine RBC (Auto) 5.0 /HPF (0.0-6.0) 01/06/17 14:50 Fluid Type Synovial 01/06/17 14:40 Fluid Color Straw 01/06/17 14:40 Fluid Appearance Cloudy 01/06/17 14:40 Fluid WBC 84493 /mm3 01/06/17 14:40 Fluid RBC 04740 /mm3 01/06/17 14:40 Fluid Seg Neutrophils 95.0 % 01/06/17 14:40 Fluid Lymphocytes 4.0 % 01/06/17 14:40 Fluid Reactive Lymphs 0 % 01/06/17 14:40 Fluid Monocytes 1.0 % 01/06/17 14:40 Fluid Eosinophils 0 % 01/06/17 14:40 Fluid Basophils 0 % 01/06/17 14:40 Synovial Crystals Negative (NONE SEEN) 01/06/17 14:40
[2017-01-08] MEDS ORDERED: STRIBILD PO SCH (11:15)
[2017-01-08] MEDS: DILAUDID IV PRN (19:31)
[2017-01-08] MEDS: K-DUR PO SCH ×3 (19:42→22:01)
[2017-01-09] MEDS: UNASYN/NS 3 GM/100 ML 3 GM/100 ML BAG IV SCH ×4 (00:22→17:39)
[2017-01-09] MEDS: K-DUR PO SCH (00:24)
[2017-01-09] MEDS: VANCOMYCIN 1,500 MG in NACL 0.9% 500 ML 500 ML IV SCH ×3 (05:53→22:45)
[2017-01-09 06:51] LABS: Anion Gap 17 mmol/L; Blood Urea Nitrogen 4 mg/dL (9-20); Calcium 8.6 mg/dL (8.4-10.2); Carbon Dioxide 25 mmol/L (22-30); Chloride 98.6 mmol/L (98-107); Glucose 89 mg/dL (75-100); Potassium 3.6 mmol/L (3.6-5.0); Sodium 137 mmol/L (137-145)
[2017-01-09] MEDS: DILAUDID IV PRN ×4 (06:53→20:55)
[2017-01-09] MEDS: NACL 0.9% 1000 ML 1,000 ML IV SCH (08:32)
[2017-01-09] MEDS: HEPARIN SUB-Q SCH ×2 (09:53→22:45)
[2017-01-09] MEDS: TYLENOL PO PRN ×2 (11:46→20:55)
--- NOTE | 2017-01-09 15:24 | Progress Note ---
Assessment and Plan Assessment and plan: Septic arthritis of the right knee - Patient is on IV Unasyn and vancomycin - Patient still spiking fever - Orthopedics consult appreciated, drained 120 mL of yellow turbid fluid - No organisms identified HIV - Patient is not on any antiretrovirals because the patient moves recently from [place] - Patient needed to have follow-up as an outpatient in ID clinic DVT prophylaxis - On heparin Disposition - Continue inpatient care. History Interval history: Patient was seen and evaluated this morning, he is complaining pain in the right knee extending to his left side of his leg down to the foot Hospitalist Physical - Physical exam Narrative exam: Not in cardiopulmonary distress. The patient appeared well nourished and normally developed. Vital signs as documented. Head exam is unremarkable. No scleral icterus . Neck is without jugular venous distension, thyromegaly, or carotid bruits. Lungs are clear to auscultation. Cardiac exam reveals regular rate and Rhythm. First and second heart sounds normal. No murmurs, rubs or gallops. Abdominal exam reveals normal bowel sounds, no masses, no organomegaly and no aortic enlargement. 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 No focal weakness. - Constitutional Vitals: Temp Pulse Resp BP Pulse Ox 100.2 F H 99 H 20 163/74 95 01/09/17 07:28 01/09/17 07:28 01/09/17 07:28 01/09/17 07:28 01/09/17 07:28 General appearance: Present: no acute distress, well-nourished Results - Labs CBC & Chem 7: 01/07/17 09:15 01/09/17 05:47 Labs: Laboratory Last Values WBC 8.2 K/mm3 (4.5-11.0) 01/07/17 09:15 RBC 3.74 M/mm3 (3.65-5.03) 01/07/17 09:15 Hgb 11.5 gm/dl (11.8-15.2) L 01/07/17 09:15 Hct 34.4 % (35.5-45.6) L 01/07/17 09:15 MCV 92 fl (84-94) 01/07/17 09:15 MCH 31 pg (28-32) 01/07/17 09:15 MCHC 34 % (32-34) 01/07/17 09:15 RDW 12.8 % (13.2-15.2) L 01/07/17 09:15 Plt Count 270 K/mm3 (140-440) 01/07/17 09:15 Lymph % (Auto) 23.3 % (13.4-35.0) 01/06/17 13:11 [place] % (Auto) 9.7 % (0.0-7.3) H 01/06/17 13:11 Eos % (Auto) 0.1 % (0.0-4.3) 01/06/17 13:11 Baso % (Auto) 0.2 % (0.0-1.8) 01/06/17 13:11 Lymph # 2.5 K/mm3 (1.2-5.4) 01/06/17 13:11 [place] # 1.1 K/mm3 (0.0-0.8) H 01/06/17 13:11 Eos # 0.0 K/mm3 (0.0-0.4) 01/06/17 13:11 Baso # 0.0 K/mm3 (0.0-0.1) 01/06/17 13:11 Seg Neutrophils % 66.7 % (40.0-70.0) 01/06/17 13:11 Seg Neutrophils # 7.3 K/mm3 (1.8-7.7) 01/06/17 13:11 PT 15.8 Sec. (12.2-14.9) H 01/06/17 13:11 INR 1.27 (0.87-1.13) H 01/06/17 13:11 VBG pH 7.415 (7.320-7.420) 01/06/17 13:11 Sodium 137 mmol/L (137-145) 01/09/17 05:47 Potassium 3.6 mmol/L (3.6-5.0) 01/09/17 05:47 Chloride 98.6 mmol/L (98-107) 01/09/17 05:47 Carbon Dioxide 25 mmol/L (22-30) 01/09/17 05:47 Anion Gap 17 mmol/L 01/09/17 05:47 BUN 4 mg/dL (9-20) L 01/09/17 05:47 Creatinine 0.5 mg/dL (0.8-1.5) L 01/09/17 05:47 Estimated GFR > 60 ml/min 01/09/17 05:47 BUN/Creatinine Ratio 8.00 % 01/09/17 05:47 Glucose 89 mg/dL (75-100) 01/09/17 05:47 Lactic Acid 0.80 mmol/L (0.7-2.0) 01/06/17 20:00 Uric Acid 5.3 mg/dL (3.5-7.6) 01/06/17 13:11 Calcium 8.6 mg/dL (8.4-10.2) 01/09/17 05:47 Magnesium 1.70 mg/dL (1.7-2.3) 01/08/17 17:35 Total Bilirubin 1.20 mg/dL (0.1-1.2) 01/06/17 13:11 AST 27 units/L (5-40) 01/06/17 13:11 ALT 24 units/L (7-56) 01/06/17 13:11 Alkaline Phosphatase 81 units/L (35-129) 01/06/17 13:11 Total Protein 9.3 g/dL (6.3-8.2) H 01/06/17 13:11 Albumin 4.0 g/dL (3.9-5) 01/06/17 13:11 Albumin/Globulin Ratio 0.8 % 01/06/17 13:11 Urine Color Yellow (Yellow) 01/06/17 14:50 Urine Turbidity Clear (Clear) 01/06/17 14:50 Urine pH 6.0 (5.0-7.0) 01/06/17 14:50 Ur Specific [place] 1.016 (1.003-1.030) 01/06/17 14:50 Urine Protein 30 mg/dl mg/dL (Negative) 01/06/17 14:50 Urine Glucose (UA) Neg mg/dL (Negative) 01/06/17 14:50 Urine Ketones Neg mg/dL (Negative) 01/06/17 14:50 Urine Blood Neg (Negative) 01/06/17 14:50 Urine Nitrite Neg (Negative) 01/06/17 14:50 Urine Bilirubin Neg (Negative) 01/06/17 14:50 Urine Urobilinogen 4.0 mg/dL (<2.0) 01/06/17 14:50 Ur Leukocyte Esterase Neg (Negative) 01/06/17 14:50 Urine WBC (Auto) 7.0 /HPF (0.0-6.0) H 01/06/17 14:50 Urine RBC (Auto) 5.0 /HPF (0.0-6.0) 01/06/17 14:50 Fluid Type Synovial 01/06/17 14:40 Fluid Color Straw 01/06/17 14:40 Fluid Appearance Cloudy 01/06/17 14:40 Fluid WBC 05226 /mm3 01/06/17 14:40 Fluid RBC 17163 /mm3 01/06/17 14:40 Fluid Seg Neutrophils 95.0 % 01/06/17 14:40 Fluid Lymphocytes 4.0 % 01/06/17 14:40 Fluid Reactive Lymphs 0 % 01/06/17 14:40 Fluid Monocytes 1.0 % 01/06/17 14:40 Fluid Eosinophils 0 % 01/06/17 14:40 Fluid Basophils 0 % 01/06/17 14:40 Synovial Crystals Negative (NONE SEEN) 01/06/17 14:40 Vancomycin Trough 9.9 ug/mL (5.0-20.0) 01/09/17 13:51
[2017-01-10] MEDS: PERCOCET 5/325 PO PRN (00:44)
[2017-01-10] MEDS: UNASYN/NS 3 GM/100 ML 3 GM/100 ML BAG IV SCH ×2 (00:45→05:50)
[2017-01-10] MEDS: NACL 0.9% 1000 ML 1,000 ML IV SCH (00:46)
[2017-01-10] MEDS: DILAUDID IV PRN ×5 (05:49→20:38)
[2017-01-10] MEDS: VANCOMYCIN 1,500 MG in NACL 0.9% 500 ML 500 ML IV SCH ×2 (07:09→13:21)
[2017-01-10 07:49] LABS: Anion Gap 15 mmol/L; Blood Urea Nitrogen 4 mg/dL (9-20); Calcium 8.6 mg/dL (8.4-10.2); Carbon Dioxide 26 mmol/L (22-30); Chloride 98.6 mmol/L (98-107); Glucose 106 mg/dL (75-100); Potassium 3.6 mmol/L (3.6-5.0); Sodium 136 mmol/L (137-145)
[2017-01-10 08:04] LABS: Basophils % (Auto) 0.1 % (0.0-1.8); Eosinophils % (Auto) 0.3 % (0.0-4.3); Hematocrit 30.5 % (35.5-45.6); Hemoglobin 10.4 gm/dl (11.8-15.2); Mean Corpuscular HGB Conc 34 % (32-34); Mean Corpuscular Hemoglobin 31 pg (28-32); Mean Corpuscular Volume 91 fl (84-94); Platelet Count 289 K/mm3 (140-440); Red Blood Count 3.36 M/mm3 (3.65-5.03); Red Cell Distribution Width 12.8 % (13.2-15.2); White Blood Count 7.9 K/mm3 (4.5-11.0)
[2017-01-10] MEDS: HEPARIN SUB-Q SCH ×2 (09:27→22:15)
[2017-01-10] MEDS: TYLENOL PO PRN (09:35)
--- NOTE | 2017-01-10 11:19 | Consultation ---
History of Present Illness - Reason for Consult Consult date: 01/10/17 right knee septic arthrhtis Requesting physician: BOB ONTIVEROS - History of Present Illness 26 year old male with history of HIV diagnosed in 2012 currently off ART (used to be on Stribild), stopped it 3 months ago after moving to [place] from [place]. Patient has not established HIV care in [place] yet. Also history of syphilis x 2, last time October 2016 treated. Patient was admitted on 01/06/17 due to acute onset of right knee severe pain 10/10 and swelling starting on . Denies any trauma or fall. Denies history of vasculitis, raji's syndrome. Gout does run on his family. Pain became intolerable so patient called 911. he also noted subjective fever and malaise last 3 days. He is a MSM and uses protection every time. He uses marihuana which was legal in [place], last time 3 months ago. Denies ETOH, tobacco or drug abuse. In the ED, temp 100.5, HR 95, WBC 10.9, CR 0.7, lactate 2.4. XR of the knee showed large effusion and ? avulsion of fracture. Aspiration of the joint yielded cloudy fluid with WBC 36,800, RBC 25,150, 95% neutrophils, NO crystals seen. Synovial Gram stain many PMN and no organisms. Synovial culture no growth today. Blood cx negative. Current Antimicrobials: Unasyn 01/07 Vancomycin 01/07 Previous Antimicrobials: Microbiology: Blood cultures: 01/06 ngtd Urine cultures: Respiratory cultures: Wound cultures: Stool cultures: Other: 01/06 synovial Gram stain many PMN and no organisms Past History Past Medical History: other (HIV, syphylis ) Past Surgical History: denies: No surgical history Social history: single, lives with family, other ([employer]). denies: smoking, alcohol abuse, IV drug use Family history: other (gout ) Medications and Allergies Allergies Allergy/AdvReac Type Severity Reaction Status Date / Time No Known Allergies Allergy Unverified 12/25/16 12:42 Home Medications Medication Instructions Recorded Confirmed Last Taken Type Stribild Tablet 1 tab PO DAILY 01/08/17 01/08/17 Unknown History Active Meds: Active Medications Acetaminophen (Tylenol) 650 mg PO Q4H PRN PRN Reason: Pain MILD(1-3)/Fever >100.5/SINGH Last Admin: 01/10/17 09:35 Dose: 650 mg Bisacodyl (Dulcolax) 10 mg [place] QDAY PRN PRN Reason: Constipation unrelieved by MOM Heparin Sodium (Porcine) (Heparin) 5,000 unit SUB-Q Q12HR BRIANNE Last Admin: 01/10/17 09:27 Dose: 5,000 unit Hydromorphone HCl (Dilaudid) 1 mg IV Q3H PRN PRN Reason: Pain , Severe (7-10) Last Admin: 01/10/17 09:28 Dose: 1 mg Hydrophilic Ointment (Vaseline Lip Therapy) 1 applic TP DIRECT PRN PRN Reason: Dry Lips Last Admin: 01/07/17 18:21 Dose: 1 applic Ampicillin Sodium/Sulbactam Sodium (Unasyn/Ns 3 Gm/100 Ml) 3 gm in 100 mls @ 100 mls/hr IV Q6HR BRIANNE PRN Reason: Protocol Last Admin: 01/10/17 05:50 Dose: 100 mls/hr Sodium Chloride (Nacl 0.9% 1000 Ml) 1,000 mls @ 100 mls/hr IV DIRECT BRIANNE Last Admin: 01/10/17 00:46 Dose: 100 mls/hr Vancomycin HCl 1,750 mg/ (Sodium Chloride) 517.5 mls @ 333.333 mls/hr IV Q8HR BRIANNE Magnesium Hydroxide (Milk Of Magnesia) 30 ml PO Q4H PRN PRN Reason: Constipation Miscellaneous Medication (Stribild Tablet) 1 tab PO DAILY BRIANNE Ondansetron HCl (Zofran) 4 mg IV Q8H PRN PRN Reason: N/V unrelieved by Reglan Oxycodone/Acetaminophen (Percocet 5/325) 2 tab PO Q6H PRN PRN Reason: Pain, Moderate (4-6) Last Admin: 01/10/17 00:44 Dose: 2 tab Sodium Chloride (Sodium Chloride Flush Syringe 10 Ml) 10 ml IV PRN PRN PRN Reason: LINE FLUSH Vancomycin HCl (Vancomycin Pharmacy To Dose) 1 each IV PKCONSULT BRIANNE PRN Reason: Protocol Review of Systems Constitutional: fever, chills, weakness, malaise, no weight loss, no weight gain Ears, nose, mouth and throat: no ear discharge, no decreased hearing, no nasal congestion, no nasal discharge Cardiovascular: no orthopnea, no syncope Respiratory: no cough with sputum, no shortness of breath Gastrointestinal: diarrhea, no abdominal pain, no nausea, no vomiting Genitourinary Male: no dysuria, no flank pain, no urinary frequency Musculoskeletal: hot joints, no neck stiffness, no myalgias, no frequent falls Integumentary: no rash Neurological: no weakness Physical Examination - Physical Exam Narrative exam: General appearance: Alert in NAD, conversant Eyes: anicteric sclerae, moist conjunctivae; no lid-lag; PERRLA HENT: Atraumatic; oropharynx clear with moist mucous membranes and no mucosal ulcerations/no oral thrush; normal hard and soft palate. Normal external ears. Neck: Trachea midline; supple, no thyromegaly or lymphadenopathy Lungs: CTA, with normal respiratory effort and no intercostal retractions CV: RRR, no murmurs Abdomen: Soft, non-tender; no masses or hepatosplenomegaly Extremities: +marked edema, tenderness and heat of left knee Skin: Normal temperature, turgor and texture; no rash, ulcers or subcutaneous nodules Psych: Appropriate affect, alert and oriented to person, place and time. Neuro: alert and oriented x 3. Moving all extermities Lines: No CVL / PICC - Constitutional Vitals: Vital Signs Temp Pulse Resp BP Pulse Ox 100.4 F H 95 H 20 151/88 98 01/10/17 07:43 01/10/17 00:05 01/10/17 07:43 01/10/17 07:43 01/10/17 00:05 Temperature -Last 24 Hours Temperature 100.4 F Temperature 97.8 F Temperature 100.5 F Temperature 99.9 F Results - Labs CBC & Chem 7: 01/10/17 07:16 01/10/17 07:16 Labs: Abnormal lab results 01/10/17 01/10/17 Range/Units 07:16 07:16 RBC 3.36 L (3.65-5.03) M/mm3 Hgb 10.4 L (11.8-15.2) gm/dl Hct 30.5 L (35.5-45.6) % RDW 12.8 L (13.2-15.2) % [place] % (Auto) 11.1 H (0.0-7.3) % [place] # 0.9 H (0.0-0.8) K/mm3 Sodium 136 L (137-145) mmol/L BUN 4 L (9-20) mg/dL Creatinine 0.5 L (0.8-1.5) mg/dL Glucose 106 H (75-100) mg/dL Assessment and Plan Assessment: 1) Sepsis: Present on admission, manifested by fever and increased lactate. Etiology - left knee pyogenic versus reactive arthritis 2) Pyogenic versus reactive left knee arthritis. DDx-bacterial including Staph and gonorrrhea versus connective tissue disease versus vasculitis (Raji's syndrome) less likely gout in view of negative crystals -XR of the knee showed large effusion and ? avulsion of fracture. -Aspiration of the joint yielded cloudy fluid with WBC 36,800, RBC 25,150, 95 % neutrophils, NO crystals seen. Synovial Gram stain many PMN and no organisms. Synovial culture no growth today. -Blood cx negative. 3) HIV - diagnosed in 2012, currently off ART (used to be on Stribild), stopped it 3 months ago after moving to [place] from [place]. 4) History of syphilis x 2, last time October 2016 treated. Plan: -follow-up blood cultures -check GC and chlamydia in urine -obtain procalcitonin, C-reactive protein (CRP), PAULETTE with reflex, C3, C4, ANCA, HLA-B27 -obtain CD4, HIV-viral load, RPR -Ortho eval -stop unasyn -start ceftraixone and continue vancomycin for now -educated about need to establish HIV care LUANN Thank you Dr Ontiveros for your consultation, will follow up with you. Cherry Verduzco MD Infectious Diseases Specialist [facility] [phone] O [phone]
[2017-01-10] MEDS: VANCOMYCIN 1,750 MG in NACL 0.9% 500 ML 500 ML IV SCH ×2 (13:28→22:15)
[2017-01-10] MEDS: ROCEPHIN/NS 2 GM/100 ML 2 GM/100 ML BAG IV SCH (15:09)
--- NOTE | 2017-01-10 15:51 | Progress Note ---
Assessment and Plan Assessment and plan: Arthritis of the right knee pyogenic versus inflammatory - I do is consulted and recommended to change Unasyn to ceftriaxone and continue vancomycin, gono and chlamydia test ordered - Patient still spiking fever - Orthopedics consult appreciated, drained 120 mL of yellow turbid fluid and recommended physical therapy - No organisms identified HIV - Patient is not on any antiretrovirals because the patient moves recently from [place] - Patient needed to have follow-up as an outpatient in ID clinic DVT prophylaxis - On heparin Disposition - Continue inpatient care. History Interval history: Patient was seen and evaluated this morning, knee pain is getting better. Hospitalist Physical - Physical exam Narrative exam: Not in cardiopulmonary distress. The patient appeared well nourished and normally developed. Vital signs as documented. Head exam is unremarkable. No scleral icterus . Neck is without jugular venous distension, thyromegaly, or carotid bruits. Lungs are clear to auscultation. Cardiac exam reveals regular rate and Rhythm. First and second heart sounds normal. No murmurs, rubs or gallops. Abdominal exam reveals normal bowel sounds, no masses, no organomegaly and no aortic enlargement. 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 No focal weakness. - Constitutional Vitals: Temp Pulse Resp BP Pulse Ox 100.4 F H 95 H 20 151/88 98 01/10/17 07:43 01/10/17 00:05 01/10/17 07:43 01/10/17 07:43 01/10/17 00:05 General appearance: Present: no acute distress, well-nourished Results - Labs CBC & Chem 7: 01/10/17 07:16 01/10/17 07:16 Labs: Laboratory Last Values WBC 7.9 K/mm3 (4.5-11.0) 01/10/17 07:16 RBC 3.36 M/mm3 (3.65-5.03) L 01/10/17 07:16 Hgb 10.4 gm/dl (11.8-15.2) L 01/10/17 07:16 Hct 30.5 % (35.5-45.6) L 01/10/17 07:16 MCV 91 fl (84-94) 01/10/17 07:16 MCH 31 pg (28-32) 01/10/17 07:16 MCHC 34 % (32-34) 01/10/17 07:16 RDW 12.8 % (13.2-15.2) L 01/10/17 07:16 Plt Count 289 K/mm3 (140-440) 01/10/17 07:16 Lymph % (Auto) 23.1 % (13.4-35.0) 01/10/17 07:16 [place] % (Auto) 11.1 % (0.0-7.3) H 01/10/17 07:16 Eos % (Auto) 0.3 % (0.0-4.3) 01/10/17 07:16 Baso % (Auto) 0.1 % (0.0-1.8) 01/10/17 07:16 Lymph # 1.8 K/mm3 (1.2-5.4) 01/10/17 07:16 [place] # 0.9 K/mm3 (0.0-0.8) H 01/10/17 07:16 Eos # 0.0 K/mm3 (0.0-0.4) 01/10/17 07:16 Baso # 0.0 K/mm3 (0.0-0.1) 01/10/17 07:16 Seg Neutrophils % 65.4 % (40.0-70.0) 01/10/17 07:16 Seg Neutrophils # 5.1 K/mm3 (1.8-7.7) 01/10/17 07:16 PT 15.8 Sec. (12.2-14.9) H 01/06/17 13:11 INR 1.27 (0.87-1.13) H 01/06/17 13:11 VBG pH 7.415 (7.320-7.420) 01/06/17 13:11 Sodium 136 mmol/L (137-145) L 01/10/17 07:16 Potassium 3.6 mmol/L (3.6-5.0) 01/10/17 07:16 Chloride 98.6 mmol/L (98-107) 01/10/17 07:16 Carbon Dioxide 26 mmol/L (22-30) 01/10/17 07:16 Anion Gap 15 mmol/L 01/10/17 07:16 BUN 4 mg/dL (9-20) L 01/10/17 07:16 Creatinine 0.5 mg/dL (0.8-1.5) L 01/10/17 07:16 Estimated GFR > 60 ml/min 01/10/17 07:16 BUN/Creatinine Ratio 8.00 % 01/10/17 07:16 Glucose 106 mg/dL (75-100) H 01/10/17 07:16 Lactic Acid 0.80 mmol/L (0.7-2.0) 01/06/17 20:00 Uric Acid 5.3 mg/dL (3.5-7.6) 01/06/17 13:11 Calcium 8.6 mg/dL (8.4-10.2) 01/10/17 07:16 Magnesium 1.70 mg/dL (1.7-2.3) 01/08/17 17:35 Total Bilirubin 1.20 mg/dL (0.1-1.2) 01/06/17 13:11 AST 27 units/L (5-40) 01/06/17 13:11 ALT 24 units/L (7-56) 01/06/17 13:11 Alkaline Phosphatase 81 units/L (35-129) 01/06/17 13:11 C-Reactive Protein 18.20 mg/dL (0.00-1.30) H 01/10/17 13:35 Total Protein 9.3 g/dL (6.3-8.2) H 01/06/17 13:11 Albumin 4.0 g/dL (3.9-5) 01/06/17 13:11 Albumin/Globulin Ratio 0.8 % 01/06/17 13:11 Urine Color Yellow (Yellow) 01/06/17 14:50 Urine Turbidity Clear (Clear) 01/06/17 14:50 Urine pH 6.0 (5.0-7.0) 01/06/17 14:50 Ur Specific [place] 1.016 (1.003-1.030) 01/06/17 14:50 Urine Protein 30 mg/dl mg/dL (Negative) 01/06/17 14:50 Urine Glucose (UA) Neg mg/dL (Negative) 01/06/17 14:50 Urine Ketones Neg mg/dL (Negative) 01/06/17 14:50 Urine Blood Neg (Negative) 01/06/17 14:50 Urine Nitrite Neg (Negative) 01/06/17 14:50 Urine Bilirubin Neg (Negative) 01/06/17 14:50 Urine Urobilinogen 4.0 mg/dL (<2.0) 01/06/17 14:50 Ur Leukocyte Esterase Neg (Negative) 01/06/17 14:50 Urine WBC (Auto) 7.0 /HPF (0.0-6.0) H 01/06/17 14:50 Urine RBC (Auto) 5.0 /HPF (0.0-6.0) 01/06/17 14:50 Fluid Type Synovial 01/06/17 14:40 Fluid Color Straw 01/06/17 14:40 Fluid Appearance Cloudy 01/06/17 14:40 Fluid WBC 34092 /mm3 01/06/17 14:40 Fluid RBC 80742 /mm3 01/06/17 14:40 Fluid Seg Neutrophils 95.0 % 01/06/17 14:40 Fluid Lymphocytes 4.0 % 01/06/17 14:40 Fluid Reactive Lymphs 0 % 01/06/17 14:40 Fluid Monocytes 1.0 % 01/06/17 14:40 Fluid Eosinophils 0 % 01/06/17 14:40 Fluid Basophils 0 % 01/06/17 14:40 Synovial Crystals Negative (NONE SEEN) 01/06/17 14:40 Vancomycin Trough 9.9 ug/mL (5.0-20.0) 01/09/17 13:51 C.trachomatis DNA (SDA) Not detected (Not Detected) 01/06/17 14:50 N.gonorrhoeae DNA (SDA) Not detected (Not Detected) 01/06/17 14:50
[2017-01-11] MEDS: NACL 0.9% 1000 ML 1,000 ML IV SCH ×2 (00:30→12:02)
[2017-01-11] MEDS: PERCOCET 5/325 PO PRN ×4 (00:30→23:54)
[2017-01-11] MEDS: DILAUDID IV PRN ×5 (04:48→22:11)
[2017-01-11] MEDS: VANCOMYCIN 1,750 MG in NACL 0.9% 500 ML 500 ML IV SCH ×3 (05:31→23:39)
[2017-01-11] MEDS: ROCEPHIN/NS 2 GM/100 ML 2 GM/100 ML BAG IV SCH (10:31)
[2017-01-11] MEDS: HEPARIN SUB-Q SCH ×2 (10:34→22:12)
--- NOTE | 2017-01-11 11:20 | Progress Note ---
Assessment and Plan Assessment: 1) Sepsis: still fever. Etiology - left knee pyogenic versus reactive arthritis +/- left gluteal abscess 2) Pyogenic versus reactive left knee arthritis. DDx-bacterial from gluteal abscess seeding. -XR of the knee showed large effusion and ? avulsion of fracture. -Aspiration of the joint yielded cloudy fluid with WBC 36,800, RBC 25,150, 95 % neutrophils, NO crystals seen. Synovial Gram stain many PMN and no organisms. Synovial culture no growth. -CRP=18 -Blood cx negative. 3) Left gluteal abscess: on/off for several months 4) HIV - diagnosed in 2012, currently off ART (used to be on Stribild), stopped it 3 months ago after moving to [place] from [place]. 5) History of syphilis x 2, last time October 2016 treated. Plan: -agree with gluteal abscess I+D - please send deep cultures -f/u GC and chlamydia in urine, procalcitonin, PAULETTE with reflex, C3, C4, ANCA, HLA-B27 -f/u CD4, HIV-viral load -Ortho eval -continue ceftriaxone and continue vancomycin for now -add flagyl to cover anaerobes from gluteal abscess -in view of presumed septic arthritis will set up IV antibiotics vancomycin IV + levaquin PO total 4 weeks -needs PICC -monitor vanco trough and creatinine in view of high dose vancomycin Thank you Dr Sanders for your consultation, will follow up with you. Cherry Verduzco MD Infectious Diseases Specialist [facility] M [phone] O [phone] Subjective Date of service: 01/11/17 Principal diagnosis: septic knee arthritis Interval history: Feels better still severe knee pain and spiking fever 100.4. Current Antimicrobials: Unasyn 01/07 Vancomycin 01/07 Previous Antimicrobials: Microbiology: Blood cultures: 01/06 ngtd Urine cultures: Respiratory cultures: Wound cultures: Stool cultures: Other: 01/06 synovial Gram stain many PMN and no organisms Objective - Exam Narrative Exam: General appearance: Alert in NAD, conversant Eyes: anicteric sclerae, moist conjunctivae; no lid-lag; PERRLA HENT: Atraumatic; oropharynx clear with moist mucous membranes and no mucosal ulcerations/no oral thrush; normal hard and soft palate. Normal external ears. Neck: Trachea midline; supple, no thyromegaly or lymphadenopathy Lungs: CTA, with normal respiratory effort and no intercostal retractions CV: RRR, no murmurs Abdomen: Soft, non-tender; no masses or hepatosplenomegaly Extremities: +marked edema, tenderness and heat of left knee Skin: +left gluteal induratio with purulent drainage Psych: Appropriate affect, alert and oriented to person, place and time. Neuro: alert and oriented x 3. Moving all extermities Lines: No CVL / PICC - Constitutional Vitals: Vital Signs Temp Pulse Resp BP Pulse Ox 99.2 F 90 20 159/91 95 01/11/17 08:40 01/11/17 08:40 01/11/17 08:40 01/11/17 08:40 01/11/17 08:40 Temperature -Last 24 Hours Temperature 99.2 F Temperature 100.4 F Temperature 99.8 F Temperature 99.6 F - Labs CBC & Chem 7: 01/10/17 07:16 01/10/17 07:16 Labs: Abnormal lab results 01/10/17 Range/Units 13:35 C-Reactive Protein 18.20 H (0.00-1.30) mg/dL
--- NOTE | 2017-01-11 12:39 | Consultation ---
History of Present Illness Consult date: 01/11/17 Reason for consult: other (Left buttock abscess) - History of present illness History of present illness: Problem began 4 days ago. He has had similar problems in the past. Prior I&D done in 05/16. Past History Past Surgical History: denies: No surgical history Social history: single, lives with family, other ([facility]). denies: smoking, alcohol abuse, IV drug use Family history: other (gout ) Medications and Allergies Allergies Allergy/AdvReac Type Severity Reaction Status Date / Time No Known Allergies Allergy Unverified 12/25/16 12:42 Home Medications Medication Instructions Recorded Confirmed Last Taken Type Stribild Tablet 1 tab PO DAILY 01/08/17 01/08/17 Unknown History Active Meds: Active Medications Acetaminophen (Tylenol) 650 mg PO Q4H PRN PRN Reason: Pain MILD(1-3)/Fever >100.5/SINGH Last Admin: 01/10/17 09:35 Dose: 650 mg Bisacodyl (Dulcolax) 10 mg [place] QDAY PRN PRN Reason: Constipation unrelieved by MOM Heparin Sodium (Porcine) (Heparin) 5,000 unit SUB-Q Q12HR BRIANNE Last Admin: 01/11/17 10:34 Dose: 5,000 unit Hydromorphone HCl (Dilaudid) 1 mg IV Q3H PRN PRN Reason: Pain , Severe (7-10) Last Admin: 01/11/17 08:22 Dose: 1 mg Hydrophilic Ointment (Vaseline Lip Therapy) 1 applic TP DIRECT PRN PRN Reason: Dry Lips Last Admin: 01/07/17 18:21 Dose: 1 applic Sodium Chloride (Nacl 0.9% 1000 Ml) 1,000 mls @ 100 mls/hr IV DIRECT BRIANNE Last Admin: 01/11/17 12:02 Dose: 100 mls/hr Vancomycin HCl 1,750 mg/ (Sodium Chloride) 517.5 mls @ 333.333 mls/hr IV Q8HR BRIANNE Last Admin: 01/11/17 05:31 Dose: 333.333 mls/hr Ceftriaxone Sodium (Rocephin/Ns 2 Gm/100 Ml) 2 gm in 100 mls @ 200 mls/hr IV Q24HR BRIANNE PRN Reason: Protocol Last Admin: 09/14/17 10:31 Dose: 200 mls/hr Magnesium Hydroxide (Milk Of Magnesia) 30 ml PO Q4H PRN PRN Reason: Constipation Metronidazole (Flagyl) 500 mg PO Q8HR BRIANNE Miscellaneous Medication (Stribild Tablet) 1 tab PO DAILY BRIANNE Ondansetron HCl (Zofran) 4 mg IV Q8H PRN PRN Reason: N/V unrelieved by Reglan Oxycodone/Acetaminophen (Percocet 5/325) 2 tab PO Q6H PRN PRN Reason: Pain, Moderate (4-6) Last Admin: 01/11/17 10:32 Dose: 2 tab Sodium Chloride (Sodium Chloride Flush Syringe 10 Ml) 10 ml IV PRN PRN PRN Reason: LINE FLUSH Vancomycin HCl (Vancomycin Pharmacy To Dose) 1 each IV PKCONSULT BRIANNE PRN Reason: Protocol Exam Vital Signs Temp Pulse Resp BP Pulse Ox 100.5 F H 95 H 20 160/99 100 01/06/17 12:22 01/06/17 12:22 01/06/17 12:22 01/06/17 12:22 01/06/17 12:22 - Integumentary other (Left buttock has a 1 cm raised area with less than a droplet of pus expressed from the associated punctum. There is no associated fluctuance or cellulitis.) Results - Labs 01/10/17 07:16 01/10/17 07:16 Abnormal lab results 01/10/17 Range/Units 13:35 C-Reactive Protein 18.20 H (0.00-1.30) mg/dL Assessment and Plan 1) Continue antibiotics 2) I&D will probably not be necessary. - Patient Problems (1) Left buttock abscess Current Visit: Yes Status: Acute
[2017-01-11] MEDS: FLAGYL PO SCH ×2 (13:49→22:12)
--- NOTE | 2017-01-11 14:46 | Progress Note ---
Assessment and Plan Assessment and plan: Arthritis of the right knee pyogenic versus inflammatory - ID consulted and put on IV ceftriaxone and vancomycin, patient needed 4 weeks of IV vancomycin and by mouth Levaquin - Patient still spiking fever - Orthopedics consult appreciated, drained 120 mL of yellow turbid fluid and recommended physical therapy - No organisms identified Left gluteal abscess - Surgery consulted - no I/D indicated HIV - Patient is not on any antiretrovirals because the patient moves recently from [place] - Patient needed to have follow-up as an outpatient in ID clinic DVT prophylaxis - On heparin Disposition - will be discharged home once O/P IV antibiotics set up. History Interval history: Patient was seen and evaluated this morning, knee pain is getting better. Hospitalist Physical - Physical exam Narrative exam: Not in cardiopulmonary distress. The patient appeared well nourished and normally developed. Vital signs as documented. Head exam is unremarkable. No scleral icterus . Neck is without jugular venous distension, thyromegaly, or carotid bruits. Lungs are clear to auscultation. Cardiac exam reveals regular rate and Rhythm. First and second heart sounds normal. No murmurs, rubs or gallops. Abdominal exam reveals normal bowel sounds, no masses, no organomegaly and no aortic enlargement. Extremities swelling and tenderness of the right knee, left gluteal abscess. 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 No focal weakness. - Constitutional Vitals: Temp Pulse Resp BP Pulse Ox 99.2 F 90 20 159/91 95 01/11/17 08:40 01/11/17 10:00 01/11/17 08:40 01/11/17 08:40 01/11/17 10:00 General appearance: Present: no acute distress, well-nourished Results - Labs CBC & Chem 7: 01/10/17 07:16 01/10/17 07:16 Labs: Laboratory Last Values WBC 7.9 K/mm3 (4.5-11.0) 01/10/17 07:16 RBC 3.36 M/mm3 (3.65-5.03) L 01/10/17 07:16 Hgb 10.4 gm/dl (11.8-15.2) L 01/10/17 07:16 Hct 30.5 % (35.5-45.6) L 01/10/17 07:16 MCV 91 fl (84-94) 01/10/17 07:16 MCH 31 pg (28-32) 01/10/17 07:16 MCHC 34 % (32-34) 01/10/17 07:16 RDW 12.8 % (13.2-15.2) L 01/10/17 07:16 Plt Count 289 K/mm3 (140-440) 01/10/17 07:16 Lymph % (Auto) 23.1 % (13.4-35.0) 01/10/17 07:16 [place] % (Auto) 11.1 % (0.0-7.3) H 01/10/17 07:16 Eos % (Auto) 0.3 % (0.0-4.3) 01/10/17 07:16 Baso % (Auto) 0.1 % (0.0-1.8) 01/10/17 07:16 Lymph # 1.8 K/mm3 (1.2-5.4) 01/10/17 07:16 [place] # 0.9 K/mm3 (0.0-0.8) H 01/10/17 07:16 Eos # 0.0 K/mm3 (0.0-0.4) 01/10/17 07:16 Baso # 0.0 K/mm3 (0.0-0.1) 01/10/17 07:16 Seg Neutrophils % 65.4 % (40.0-70.0) 01/10/17 07:16 Seg Neutrophils # 5.1 K/mm3 (1.8-7.7) 01/10/17 07:16 PT 15.8 Sec. (12.2-14.9) H 01/06/17 13:11 INR 1.27 (0.87-1.13) H 01/06/17 13:11 VBG pH 7.415 (7.320-7.420) 01/06/17 13:11 Sodium 136 mmol/L (137-145) L 01/10/17 07:16 Potassium 3.6 mmol/L (3.6-5.0) 01/10/17 07:16 Chloride 98.6 mmol/L (98-107) 01/10/17 07:16 Carbon Dioxide 26 mmol/L (22-30) 01/10/17 07:16 Anion Gap 15 mmol/L 01/10/17 07:16 BUN 4 mg/dL (9-20) L 01/10/17 07:16 Creatinine 0.5 mg/dL (0.8-1.5) L 01/10/17 07:16 Estimated GFR > 60 ml/min 01/10/17 07:16 BUN/Creatinine Ratio 8.00 % 01/10/17 07:16 Glucose 106 mg/dL (75-100) H 01/10/17 07:16 Lactic Acid 0.80 mmol/L (0.7-2.0) 01/06/17 20:00 Uric Acid 5.3 mg/dL (3.5-7.6) 01/06/17 13:11 Calcium 8.6 mg/dL (8.4-10.2) 01/10/17 07:16 Magnesium 1.70 mg/dL (1.7-2.3) 01/08/17 17:35 Total Bilirubin 1.20 mg/dL (0.1-1.2) 01/06/17 13:11 AST 27 units/L (5-40) 01/06/17 13:11 ALT 24 units/L (7-56) 01/06/17 13:11 Alkaline Phosphatase 81 units/L (35-129) 01/06/17 13:11 C-Reactive Protein 18.20 mg/dL (0.00-1.30) H 01/10/17 13:35 Total Protein 9.3 g/dL (6.3-8.2) H 01/06/17 13:11 Albumin 4.0 g/dL (3.9-5) 01/06/17 13:11 Albumin/Globulin Ratio 0.8 % 01/06/17 13:11 Urine Color Yellow (Yellow) 01/06/17 14:50 Urine Turbidity Clear (Clear) 01/06/17 14:50 Urine pH 6.0 (5.0-7.0) 01/06/17 14:50 Ur Specific [place] 1.016 (1.003-1.030) 01/06/17 14:50 Urine Protein 30 mg/dl mg/dL (Negative) 01/06/17 14:50 Urine Glucose (UA) Neg mg/dL (Negative) 01/06/17 14:50 Urine Ketones Neg mg/dL (Negative) 01/06/17 14:50 Urine Blood Neg (Negative) 01/06/17 14:50 Urine Nitrite Neg (Negative) 01/06/17 14:50 Urine Bilirubin Neg (Negative) 01/06/17 14:50 Urine Urobilinogen 4.0 mg/dL (<2.0) 01/06/17 14:50 Ur Leukocyte Esterase Neg (Negative) 01/06/17 14:50 Urine WBC (Auto) 7.0 /HPF (0.0-6.0) H 01/06/17 14:50 Urine RBC (Auto) 5.0 /HPF (0.0-6.0) 01/06/17 14:50 Fluid Type Synovial 01/06/17 14:40 Fluid Color Straw 01/06/17 14:40 Fluid Appearance Cloudy 01/06/17 14:40 Fluid WBC 26656 /mm3 01/06/17 14:40 Fluid RBC 61921 /mm3 01/06/17 14:40 Fluid Seg Neutrophils 95.0 % 01/06/17 14:40 Fluid Lymphocytes 4.0 % 01/06/17 14:40 Fluid Reactive Lymphs 0 % 01/06/17 14:40 Fluid Monocytes 1.0 % 01/06/17 14:40 Fluid Eosinophils 0 % 01/06/17 14:40 Fluid Basophils 0 % 01/06/17 14:40 Synovial Crystals Negative (NONE SEEN) 01/06/17 14:40 Vancomycin Trough 9.9 ug/mL (5.0-20.0) 01/09/17 13:51 C.trachomatis DNA (SDA) Not detected (Not Detected) 01/06/17 14:50 N.gonorrhoeae DNA (SDA) Not detected (Not Detected) 01/06/17 14:50
[2017-01-11] MEDS: ZOFRAN IV PRN (22:12)
[2017-01-12] MEDS: DILAUDID IV PRN ×5 (03:48→22:56)
[2017-01-12] MEDS: FLAGYL PO SCH (06:13)
[2017-01-12] MEDS: VANCOMYCIN 1,750 MG in NACL 0.9% 500 ML 500 ML IV SCH (06:30)
[2017-01-12 06:31] LABS: Basophils % (Auto) 0.3 % (0.0-1.8); Eosinophils % (Auto) 0.3 % (0.0-4.3); Hematocrit 30.1 % (35.5-45.6); Hemoglobin 10.4 gm/dl (11.8-15.2); Mean Corpuscular HGB Conc 35 % (32-34); Mean Corpuscular Hemoglobin 31 pg (28-32); Mean Corpuscular Volume 90 fl (84-94); Platelet Count 358 K/mm3 (140-440); Red Blood Count 3.35 M/mm3 (3.65-5.03); Red Cell Distribution Width 13.4 % (13.2-15.2); White Blood Count 8.6 K/mm3 (4.5-11.0)
[2017-01-12 06:58] LABS: Anion Gap 17 mmol/L; Blood Urea Nitrogen 7 mg/dL (9-20); Calcium 8.6 mg/dL (8.4-10.2); Carbon Dioxide 25 mmol/L (22-30); Chloride 96.4 mmol/L (98-107); Glucose 90 mg/dL (75-100); Potassium 3.9 mmol/L (3.6-5.0); Sodium 134 mmol/L (137-145)
--- NOTE | 2017-01-12 09:31 | Progress Note ---
Assessment and Plan Assessment: 1) Sepsis: still fever. Etiology - left knee pyogenic versus reactive arthritis +/- left gluteal abscess +/- ? acute "primary" genital HSV 2) Pyogenic versus reactive left knee arthritis. DDx-bacterial from gluteal abscess seeding. -XR of the knee showed large effusion and ? avulsion of fracture. -Aspiration of the joint yielded cloudy fluid with WBC 36,800, RBC 25,150, 95 % neutrophils, NO crystals seen. Synovial Gram stain many PMN and no organisms. Synovial culture no growth. -CRP=18 -Blood cx negative. -GC and chlamydia in urine - negative 3) Left gluteal abscess: on/off for several months 4) HIV - diagnosed in 2012, currently off ART (used to be on Stribild), stopped it 3 months ago after moving to [place] from [place]. 5) History of syphilis x 2, last time October 2016 treated. Plan: -per surgery - gluteal abscess I+D may not be necessary -obtain CT abdomen and pelvis, repeat blood cultures - in view of persistent fever and worsening pelvic/groin pain -start acyclovir IV in view of new penile lesions in the setting of fever -f/u procalcitonin, PAULETTE with reflex, C3, C4, ANCA, HLA-B27 -f/u CD4, HIV-viral load -stop ceftriaxone (no evidence of gonorrhea) -continue vancomycin for now -start zosyn to cover gluteal abscess -stop flagyl - no need to double cover anaerobes -cancel PICC line placement in view of fever -monitor fever Patient will be seen again on SundayJan 15. I will be available over the phone. Thank you Dr Sanders for your consultation, will follow up with you. Cherry Verduzco MD Infectious Diseases Specialist [facility] M [phone] Subjective Date of service: 01/12/17 Principal diagnosis: septic knee arthritis Interval history: Feels sicker with high fever 102, reporting a new penile rash noted overnight, also c/o severe marla groin pain unable to move his pelvis due to pain. Feels frustrated, crying. Current Antimicrobials: Ceftriaxone Flagyl Vancomycin 01/07 Previous Antimicrobials: Unasyn 01/07 Microbiology: Blood cultures: 01/06 ngtd Urine cultures: Respiratory cultures: Wound cultures: Stool cultures: Other: 01/06 synovial Gram stain many PMN and no organisms, no growth Objective - Exam Narrative Exam: General appearance: Alert in NAD, frustrated sad Eyes: anicteric sclerae, moist conjunctivae; no lid-lag; PERRLA HENT: Atraumatic; oropharynx clear. Neck: Trachea midline; supple, no thyromegaly or lymphadenopathy Lungs: CTA, with normal respiratory effort and no intercostal retractions CV: RRR, no murmurs Abdomen: Soft, non-tender; no masses or hepatosplenomegaly Extremities: +marked edema, tenderness and heat of left knee Skin: +left gluteal induration with purulent drainage : normal external genitalia with multiple small blister in the glans Psych: frustrated sad crying. Neuro: alert and oriented x 3. Decreased MS legs BL Lines: No CVL / PICC - Constitutional Vitals: Vital Signs Temp Pulse Resp BP Pulse Ox 102 F H 112 H 20 166/97 96 01/12/17 00:13 01/12/17 00:13 01/12/17 00:13 01/12/17 00:13 01/12/17 00:13 Temperature -Last 24 Hours Temperature 102 F Temperature 100.5 F - Labs CBC & Chem 7: 01/12/17 05:32 01/12/17 05:32 Labs: Abnormal lab results 01/12/17 01/12/17 Range/Units 05:32 05:32 RBC 3.35 L (3.65-5.03) M/mm3 Hgb 10.4 L (11.8-15.2) gm/dl Hct 30.1 L (35.5-45.6) % MCHC 35 H (32-34) % [place] % (Auto) 10.8 H (0.0-7.3) % [place] # 0.9 H (0.0-0.8) K/mm3 Sodium 134 L (137-145) mmol/L Chloride 96.4 L (98-107) mmol/L BUN 7 L (9-20) mg/dL Creatinine 0.5 L (0.8-1.5) mg/dL
[2017-01-12] MEDS: HEPARIN SUB-Q SCH ×2 (10:44→22:56)
[2017-01-12] MEDS ORDERED: APRESOLINE IV PRN (11:39)
[2017-01-12] MEDS ORDERED: NACL ONE (11:58)
--- NOTE | 2017-01-12 13:10 | Cat Scan Report ---
CT scan of abdomen and pelvis without IV contrast: History: AIDS with persistent fever. Findings: Normal lung bases. No pleural or pericardial effusion. Liver and spleen upper limit of normal in size. Normal pancreas. Normal gallbladder. Normal adrenals kidney parenchyma and bladder. No free intraperitoneal fluid. No evidence of adenopathy. Suspected non-enlarged lymph nodes in the mesentery and pelvis. Gaseous colon with stool in colon. Appendix measures 5.5 mm in diameter. No periappendiceal inflammation. No evidence of diverticulitis. Impression: Nonspecific nonenlarged suspected lymph nodes as described. No acute abdominal findings.
[2017-01-12] MEDS: VANCOMYCIN 2,000 MG in NACL 0.9% 500 ML 500 ML IV SCH ×2 (13:33→22:50)
[2017-01-12] MEDS: PERCOCET 5/325 PO PRN ×2 (13:34→19:48)
[2017-01-12] MEDS: ZOSYN/NS 4.5GM/100ML 4.5 GM/100 ML VIAL IV SCH ×2 (15:30→21:03)
--- NOTE | 2017-01-12 15:45 | Progress Note ---
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 History Interval history: Patient was seen and evaluated this morning, knee pain is getting better, still spiking fever and has vesicular penile lesions. Hospitalist Physical - Physical exam Narrative exam: Not in cardiopulmonary distress. The patient appeared well nourished and normally developed. Vital signs as documented. Head exam is unremarkable. No scleral icterus . Neck is without jugular venous distension, thyromegaly, or carotid bruits. Lungs are clear to auscultation. Cardiac exam reveals regular rate and Rhythm. First and second heart sounds normal. No murmurs, rubs or gallops. Abdominal exam reveals normal bowel sounds, no masses, no organomegaly and no aortic enlargement. Extremities swelling and tenderness of the right knee, left gluteal abscess. small vesicular penile lesions. 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 No focal weakness. - Constitutional Vitals: Temp Pulse Resp BP Pulse Ox 102 F H 112 H 20 166/97 96 01/12/17 00:13 01/12/17 00:13 01/12/17 13:34 01/12/17 00:13 01/12/17 00:13 General appearance: Present: no acute distress, well-nourished Results - Labs CBC & Chem 7: 01/12/17 05:32 01/12/17 05:32 Labs: Laboratory Last Values WBC 8.6 K/mm3 (4.5-11.0) 01/12/17 05:32 RBC 3.35 M/mm3 (3.65-5.03) L 01/12/17 05:32 Hgb 10.4 gm/dl (11.8-15.2) L 01/12/17 05:32 Hct 30.1 % (35.5-45.6) L 01/12/17 05:32 MCV 90 fl (84-94) 01/12/17 05:32 MCH 31 pg (28-32) 01/12/17 05:32 MCHC 35 % (32-34) H 01/12/17 05:32 RDW 13.4 % (13.2-15.2) 01/12/17 05:32 Plt Count 358 K/mm3 (140-440) 01/12/17 05:32 Lymph % (Auto) 19.3 % (13.4-35.0) 01/12/17 05:32 [place] % (Auto) 10.8 % (0.0-7.3) H 01/12/17 05:32 Eos % (Auto) 0.3 % (0.0-4.3) 01/12/17 05:32 Baso % (Auto) 0.3 % (0.0-1.8) 01/12/17 05:32 Lymph # 1.7 K/mm3 (1.2-5.4) 01/12/17 05:32 [place] # 0.9 K/mm3 (0.0-0.8) H 01/12/17 05:32 Eos # 0.0 K/mm3 (0.0-0.4) 01/12/17 05:32 Baso # 0.0 K/mm3 (0.0-0.1) 01/12/17 05:32 Seg Neutrophils % 69.3 % (40.0-70.0) 01/12/17 05:32 Seg Neutrophils # 6.0 K/mm3 (1.8-7.7) 01/12/17 05:32 PT 15.8 Sec. (12.2-14.9) H 01/06/17 13:11 INR 1.27 (0.87-1.13) H 01/06/17 13:11 VBG pH 7.415 (7.320-7.420) 01/06/17 13:11 Sodium 134 mmol/L (137-145) L 01/12/17 05:32 Potassium 3.9 mmol/L (3.6-5.0) 01/12/17 05:32 Chloride 96.4 mmol/L (98-107) L 01/12/17 05:32 Carbon Dioxide 25 mmol/L (22-30) 01/12/17 05:32 Anion Gap 17 mmol/L 01/12/17 05:32 BUN 7 mg/dL (9-20) L 01/12/17 05:32 Creatinine 0.5 mg/dL (0.8-1.5) L 01/12/17 05:32 Estimated GFR > 60 ml/min 01/12/17 05:32 BUN/Creatinine Ratio 14.00 % 01/12/17 05:32 Glucose 90 mg/dL (75-100) 01/12/17 05:32 Lactic Acid 0.80 mmol/L (0.7-2.0) 01/06/17 20:00 Uric Acid 5.3 mg/dL (3.5-7.6) 01/06/17 13:11 Calcium 8.6 mg/dL (8.4-10.2) 01/12/17 05:32 Magnesium 1.70 mg/dL (1.7-2.3) 01/08/17 17:35 Total Bilirubin 1.20 mg/dL (0.1-1.2) 01/06/17 13:11 AST 27 units/L (5-40) 01/06/17 13:11 ALT 24 units/L (7-56) 01/06/17 13:11 Alkaline Phosphatase 81 units/L (35-129) 01/06/17 13:11 C-Reactive Protein 25.90 mg/dL (0.00-1.30) H 01/12/17 10:22 Total Protein 9.3 g/dL (6.3-8.2) H 01/06/17 13:11 Albumin 4.0 g/dL (3.9-5) 01/06/17 13:11 Albumin/Globulin Ratio 0.8 % 01/06/17 13:11 Urine Color Yellow (Yellow) 01/06/17 14:50 Urine Turbidity Clear (Clear) 01/06/17 14:50 Urine pH 6.0 (5.0-7.0) 01/06/17 14:50 Ur Specific [place] 1.016 (1.003-1.030) 01/06/17 14:50 Urine Protein 30 mg/dl mg/dL (Negative) 01/06/17 14:50 Urine Glucose (UA) Neg mg/dL (Negative) 01/06/17 14:50 Urine Ketones Neg mg/dL (Negative) 01/06/17 14:50 Urine Blood Neg (Negative) 01/06/17 14:50 Urine Nitrite Neg (Negative) 01/06/17 14:50 Urine Bilirubin Neg (Negative) 01/06/17 14:50 Urine Urobilinogen 4.0 mg/dL (<2.0) 01/06/17 14:50 Ur Leukocyte Esterase Neg (Negative) 01/06/17 14:50 Urine WBC (Auto) 7.0 /HPF (0.0-6.0) H 01/06/17 14:50 Urine RBC (Auto) 5.0 /HPF (0.0-6.0) 01/06/17 14:50 Fluid Type Synovial 01/06/17 14:40 Fluid Color Straw 01/06/17 14:40 Fluid Appearance Cloudy 01/06/17 14:40 Fluid WBC 63738 /mm3 01/06/17 14:40 Fluid RBC 28177 /mm3 01/06/17 14:40 Fluid Seg Neutrophils 95.0 % 01/06/17 14:40 Fluid Lymphocytes 4.0 % 01/06/17 14:40 Fluid Reactive Lymphs 0 % 01/06/17 14:40 Fluid Monocytes 1.0 % 01/06/17 14:40 Fluid Eosinophils 0 % 01/06/17 14:40 Fluid Basophils 0 % 01/06/17 14:40 Synovial Crystals Negative (NONE SEEN) 01/06/17 14:40 Vancomycin Trough 11.3 ug/mL (5.0-20.0) 01/12/17 05:32 C.trachomatis DNA (SDA) Not detected (Not Detected) 01/06/17 14:50 N.gonorrhoeae DNA (SDA) Not detected (Not Detected) 01/06/17 14:50
[2017-01-12] MEDS: ZOVIRAX 1,000 MG in NACL 0.9% 100 ML IV SCH ×2 (16:05→21:57)
[2017-01-12] MEDS: NACL 0.9% 1000 ML 1,000 ML IV SCH (20:22)
[2017-01-13] MEDS: DILAUDID IV PRN ×5 (01:44→21:08)
[2017-01-13] MEDS: ZOSYN/NS 4.5GM/100ML 4.5 GM/100 ML VIAL IV SCH ×3 (05:31→21:11)
[2017-01-13] MEDS: ZOVIRAX 1,000 MG in NACL 0.9% 100 ML IV SCH ×2 (05:31→19:32)
[2017-01-13 05:54] LABS: Basophils % (Auto) 0.2 % (0.0-1.8); Eosinophils % (Auto) 0.4 % (0.0-4.3); Hematocrit 30.7 % (35.5-45.6); Hemoglobin 10.2 gm/dl (11.8-15.2); Mean Corpuscular HGB Conc 33 % (32-34); Mean Corpuscular Hemoglobin 30 pg (28-32); Mean Corpuscular Volume 90 fl (84-94); Platelet Count 446 K/mm3 (140-440); Red Cell Distribution Width 13.6 % (13.2-15.2); White Blood Count 9.2 K/mm3 (4.5-11.0)
[2017-01-13] MEDS: VANCOMYCIN 2,000 MG in NACL 0.9% 500 ML 500 ML IV SCH ×3 (06:12→23:18)
[2017-01-13 06:20] LABS: Anion Gap 17 mmol/L; Blood Urea Nitrogen 6 mg/dL (9-20); Calcium 8.8 mg/dL (8.4-10.2); Carbon Dioxide 24 mmol/L (22-30); Chloride 95.6 mmol/L (98-107); Glucose 101 mg/dL (75-100); Sodium 133 mmol/L (137-145)
[2017-01-13] MEDS: HEPARIN SUB-Q SCH ×2 (10:12→21:01)
[2017-01-13 10:51] LABS: Myeloperoxidase Antibody <1.0 AI (<1.0)
[2017-01-13] MEDS: PERCOCET 5/325 PO PRN ×2 (11:54→23:16)
--- NOTE | 2017-01-13 14:51 | Progress Note ---
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 [place] [facility]. - Patient needed to have follow-up as an outpatient in ID clinic DVT prophylaxis - On heparin Disposition - will be discharged home once O/P IV antibiotics set up most likely Sunday. History Interval history: Patient was seen and evaluated this morning, knee pain is getting better, still spiking fever and has vesicular penile lesions. Hospitalist Physical - Physical exam Narrative exam: Not in cardiopulmonary distress. The patient appeared well nourished and normally developed. Vital signs as documented. Head exam is unremarkable. No scleral icterus . Neck is without jugular venous distension, thyromegaly, or carotid bruits. Lungs are clear to auscultation. Cardiac exam reveals regular rate and Rhythm. First and second heart sounds normal. No murmurs, rubs or gallops. Abdominal exam reveals normal bowel sounds, no masses, no organomegaly and no aortic enlargement. Extremities swelling and tenderness of the right knee, left gluteal abscess. small vesicular penile lesions. 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 No focal weakness. - Constitutional Vitals: Temp Pulse Resp BP Pulse Ox 100.7 F H 110 H 20 184/100 96 01/13/17 07:47 01/13/17 07:47 01/13/17 11:54 01/13/17 07:47 01/13/17 07:47 General appearance: Present: no acute distress, well-nourished Results - Labs CBC & Chem 7: 01/13/17 05:32 01/13/17 05:32 Labs: Laboratory Last Values WBC 9.2 K/mm3 (4.5-11.0) 01/13/17 05:32 RBC 3.40 M/mm3 (3.65-5.03) L 01/13/17 05:32 Hgb 10.2 gm/dl (11.8-15.2) L 01/13/17 05:32 Hct 30.7 % (35.5-45.6) L 01/13/17 05:32 MCV 90 fl (84-94) 01/13/17 05:32 MCH 30 pg (28-32) 01/13/17 05:32 MCHC 33 % (32-34) 01/13/17 05:32 RDW 13.6 % (13.2-15.2) 01/13/17 05:32 Plt Count 446 K/mm3 (140-440) H 01/13/17 05:32 Lymph % (Auto) 16.5 % (13.4-35.0) 01/13/17 05:32 [place] % (Auto) 10.3 % (0.0-7.3) H 01/13/17 05:32 Eos % (Auto) 0.4 % (0.0-4.3) 01/13/17 05:32 Baso % (Auto) 0.2 % (0.0-1.8) 01/13/17 05:32 Lymph # 1.5 K/mm3 (1.2-5.4) 01/13/17 05:32 [place] # 0.9 K/mm3 (0.0-0.8) H 01/13/17 05:32 Eos # 0.0 K/mm3 (0.0-0.4) 01/13/17 05:32 Baso # 0.0 K/mm3 (0.0-0.1) 01/13/17 05:32 Seg Neutrophils % 72.6 % (40.0-70.0) H 01/13/17 05:32 Seg Neutrophils # 6.7 K/mm3 (1.8-7.7) 01/13/17 05:32 Abs Lymphs (Manual) 1431 cells/uL (850-3900) 01/10/17 13:35 PT 15.8 Sec. (12.2-14.9) H 01/06/17 13:11 INR 1.27 (0.87-1.13) H 01/06/17 13:11 VBG pH 7.415 (7.320-7.420) 01/06/17 13:11 Sodium 133 mmol/L (137-145) L 01/13/17 05:32 Potassium 4.0 mmol/L (3.6-5.0) 01/13/17 05:32 Chloride 95.6 mmol/L (98-107) L 01/13/17 05:32 Carbon Dioxide 24 mmol/L (22-30) 01/13/17 05:32 Anion Gap 17 mmol/L 01/13/17 05:32 BUN 6 mg/dL (9-20) L 01/13/17 05:32 Creatinine 0.5 mg/dL (0.8-1.5) L 01/13/17 05:32 Estimated GFR > 60 ml/min 01/13/17 05:32 BUN/Creatinine Ratio 12.00 % 01/13/17 05:32 Glucose 101 mg/dL (75-100) H 01/13/17 05:32 Lactic Acid 0.80 mmol/L (0.7-2.0) 01/06/17 20:00 Uric Acid 5.3 mg/dL (3.5-7.6) 01/06/17 13:11 Calcium 8.8 mg/dL (8.4-10.2) 01/13/17 05:32 Magnesium 1.70 mg/dL (1.7-2.3) 01/08/17 17:35 Total Bilirubin 1.20 mg/dL (0.1-1.2) 01/06/17 13:11 AST 27 units/L (5-40) 01/06/17 13:11 ALT 24 units/L (7-56) 01/06/17 13:11 Alkaline Phosphatase 81 units/L (35-129) 01/06/17 13:11 C-Reactive Protein 25.90 mg/dL (0.00-1.30) H 01/12/17 10:22 Total Protein 9.3 g/dL (6.3-8.2) H 01/06/17 13:11 Albumin 4.0 g/dL (3.9-5) 01/06/17 13:11 Albumin/Globulin Ratio 0.8 % 01/06/17 13:11 Urine Color Yellow (Yellow) 01/06/17 14:50 Urine Turbidity Clear (Clear) 01/06/17 14:50 Urine pH 6.0 (5.0-7.0) 01/06/17 14:50 Ur Specific [place] 1.016 (1.003-1.030) 01/06/17 14:50 Urine Protein 30 mg/dl mg/dL (Negative) 01/06/17 14:50 Urine Glucose (UA) Neg mg/dL (Negative) 01/06/17 14:50 Urine Ketones Neg mg/dL (Negative) 01/06/17 14:50 Urine Blood Neg (Negative) 01/06/17 14:50 Urine Nitrite Neg (Negative) 01/06/17 14:50 Urine Bilirubin Neg (Negative) 01/06/17 14:50 Urine Urobilinogen 4.0 mg/dL (<2.0) 01/06/17 14:50 Ur Leukocyte Esterase Neg (Negative) 01/06/17 14:50 Urine WBC (Auto) 7.0 /HPF (0.0-6.0) H 01/06/17 14:50 Urine RBC (Auto) 5.0 /HPF (0.0-6.0) 01/06/17 14:50 Fluid Type Synovial 01/06/17 14:40 Fluid Color Straw 01/06/17 14:40 Fluid Appearance Cloudy 01/06/17 14:40 Fluid WBC 56887 /mm3 01/06/17 14:40 Fluid RBC 82388 /mm3 01/06/17 14:40 Fluid Seg Neutrophils 95.0 % 01/06/17 14:40 Fluid Lymphocytes 4.0 % 01/06/17 14:40 Fluid Reactive Lymphs 0 % 01/06/17 14:40 Fluid Monocytes 1.0 % 01/06/17 14:40 Fluid Eosinophils 0 % 01/06/17 14:40 Fluid Basophils 0 % 01/06/17 14:40 Synovial Crystals Negative (NONE SEEN) 01/06/17 14:40 Vancomycin Trough 11.3 ug/mL (5.0-20.0) 01/12/17 05:32 PAULETTE Screen Negative (Negative) 01/10/17 13:35 Proteinase 3 (PR3) Ab <1.0 AI (<1.0) 01/10/17 13:35 Myeloperoxidase Ab <1.0 AI (<1.0) 01/10/17 13:35 Complement C3 262 mg/dL (90-180) H 01/10/17 13:35 Complement C4 27 mg/dL (16-47) 01/10/17 13:35 Lymph Enumerat CD4/CD8 0.59 (0.86-5.00) L 01/10/17 13:35 % CD3 Cells 72 % (57-85) 01/10/17 13:35 Absolute CD3 Count 1024 cells/uL (840-3060) 01/10/17 13:35 % CD4 Cells 26 % (30-61) L 01/10/17 13:35 Absolute CD4 Count 363 cells/uL (490-1740) L 01/10/17 13:35 % CD8 Cells 44 % (12-42) H 01/10/17 13:35 Absolute CD8 Count 616 cells/uL (180-1170) 01/10/17 13:35 % CD19 Cells 9 % (6-29) 01/10/17 13:35 Absolute CD19 Count 126 cells/uL (110-660) 01/10/17 13:35 C.trachomatis DNA (SDA) Not detected (Not Detected) 01/10/17 Unknown N.gonorrhoeae DNA (SDA) Not detected (Not Detected) 01/10/17 Unknown Miscellaneous Test Flexitest 1 01/10/17 13:35
[2017-01-13 16:03] LABS: HIV-1 RNA QN PCR 3.76 Log cps/mL (<1.30)
[2017-01-14] MEDS: DILAUDID IV PRN ×4 (02:34→20:45)
[2017-01-14] MEDS: ZOVIRAX 1,000 MG in NACL 0.9% 100 ML IV SCH ×3 (05:17→21:37)
[2017-01-14] MEDS: VANCOMYCIN 2,000 MG in NACL 0.9% 500 ML 500 ML IV SCH ×3 (05:18→21:50)
[2017-01-14] MEDS: PERCOCET 5/325 PO PRN ×3 (05:20→21:49)
[2017-01-14] MEDS: ZOSYN/NS 4.5GM/100ML 4.5 GM/100 ML VIAL IV SCH ×3 (05:22→21:00)
[2017-01-14 08:19] LABS: Anion Gap 18 mmol/L; Blood Urea Nitrogen 7 mg/dL (9-20); Calcium 8.9 mg/dL (8.4-10.2); Carbon Dioxide 25 mmol/L (22-30); Chloride 95.4 mmol/L (98-107); Glucose 97 mg/dL (75-100); Potassium 3.9 mmol/L (3.6-5.0); Sodium 134 mmol/L (137-145)
[2017-01-14 08:20] LABS: Basophils % (Auto) 0.2 % (0.0-1.8); Eosinophils % (Auto) 0.9 % (0.0-4.3); Hematocrit 30.2 % (35.5-45.6); Hemoglobin 10.1 gm/dl (11.8-15.2); Mean Corpuscular HGB Conc 33 % (32-34); Mean Corpuscular Hemoglobin 30 pg (28-32); Mean Corpuscular Volume 91 fl (84-94); Platelet Count 452 K/mm3 (140-440); Red Blood Count 3.32 M/mm3 (3.65-5.03); Red Cell Distribution Width 13.2 % (13.2-15.2); White Blood Count 8.5 K/mm3 (4.5-11.0)
[2017-01-14] MEDS: HEPARIN SUB-Q SCH ×2 (09:14→21:53)
--- NOTE | 2017-01-14 13:21 | Progress Note ---
Assessment and Plan Assessment and plan: Arthritis of the right knee pyogenic versus inflammatory - ID consulted and put on IV ceftriaxone and vancomycin, patient needs 4 weeks of IV vancomycin and by mouth Levaquin - Patient still spiking fever - Orthopedics consult appreciated, drained 120 mL of yellow turbid fluid and recommended physical therapy - No organisms identified Left gluteal abscess - Surgery consulted - no I/D indicated HSV infection - On IV acyclovir HIV - Patient is not on any antiretrovirals because the patient moves recently from [place] and been out of [facility]. - Patient needed to have follow-up as an outpatient in ID clinic DVT prophylaxis - On heparin Disposition - will be discharged home once O/P IV antibiotics set up most likely Sunday. Microbiology 01/12/17 10:20 Peripheral/Venous Blood Culture - Preliminary NO GROWTH AFTER 48 HOURS 01/12/17 14:23 Peripheral/Venous Blood Culture - Preliminary NO GROWTH AFTER 24 HOURS 01/06/17 13:40 Peripheral/Venous Blood Culture - Final NO GROWTH AFTER 5 DAYS 01/06/17 13:11 Peripheral/Venous Blood Culture - Final NO GROWTH AFTER 5 DAYS 01/06/17 14:40 Synovial Fluid - Right Knee Body Fluid Culture - Final History Interval history: Patient was seen and evaluated this morning, knee pain is getting better, still spiking fever and has vesicular penile lesions. Hospitalist Physical - Physical exam Narrative exam: Not in cardiopulmonary distress. The patient appeared well nourished and normally developed. Vital signs as documented. Head exam is unremarkable. No scleral icterus . Neck is without jugular venous distension, thyromegaly, or carotid bruits. Lungs are clear to auscultation. Cardiac exam reveals regular rate and Rhythm. First and second heart sounds normal. No murmurs, rubs or gallops. Abdominal exam reveals normal bowel sounds, no masses, no organomegaly and no aortic enlargement. Extremities swelling and tenderness of the right knee, left gluteal abscess. small vesicular penile lesions. 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 No focal weakness. - Constitutional Vitals: Temp Pulse Resp BP Pulse Ox 100.7 F H 114 H 20 162/95 94 01/14/17 07:41 01/14/17 07:41 01/14/17 12:38 01/14/17 07:41 01/14/17 07:41 General appearance: Present: no acute distress, well-nourished Results - Labs CBC & Chem 7: 01/14/17 06:38 01/14/17 06:38 Labs: Laboratory Last Values WBC 8.5 K/mm3 (4.5-11.0) 01/14/17 06:38 RBC 3.32 M/mm3 (3.65-5.03) L 01/14/17 06:38 Hgb 10.1 gm/dl (11.8-15.2) L 01/14/17 06:38 Hct 30.2 % (35.5-45.6) L 01/14/17 06:38 MCV 91 fl (84-94) 01/14/17 06:38 MCH 30 pg (28-32) 01/14/17 06:38 MCHC 33 % (32-34) 01/14/17 06:38 RDW 13.2 % (13.2-15.2) 01/14/17 06:38 Plt Count 452 K/mm3 (140-440) H 01/14/17 06:38 Lymph % (Auto) 15.8 % (13.4-35.0) 01/14/17 06:38 [place] % (Auto) 11.9 % (0.0-7.3) H 01/14/17 06:38 Eos % (Auto) 0.9 % (0.0-4.3) 01/14/17 06:38 Baso % (Auto) 0.2 % (0.0-1.8) 01/14/17 06:38 Lymph # 1.3 K/mm3 (1.2-5.4) 01/14/17 06:38 [place] # 1.0 K/mm3 (0.0-0.8) H 01/14/17 06:38 Eos # 0.1 K/mm3 (0.0-0.4) 01/14/17 06:38 Baso # 0.0 K/mm3 (0.0-0.1) 01/14/17 06:38 Seg Neutrophils % 71.2 % (40.0-70.0) H 01/14/17 06:38 Seg Neutrophils # 6.0 K/mm3 (1.8-7.7) 01/14/17 06:38 Abs Lymphs (Manual) 1431 cells/uL (850-3900) 01/10/17 13:35 PT 15.8 Sec. (12.2-14.9) H 01/06/17 13:11 INR 1.27 (0.87-1.13) H 01/06/17 13:11 VBG pH 7.415 (7.320-7.420) 01/06/17 13:11 Sodium 134 mmol/L (137-145) L 01/14/17 06:38 Potassium 3.9 mmol/L (3.6-5.0) 01/14/17 06:38 Chloride 95.4 mmol/L (98-107) L 01/14/17 06:38 Carbon Dioxide 25 mmol/L (22-30) 01/14/17 06:38 Anion Gap 18 mmol/L 01/14/17 06:38 BUN 7 mg/dL (9-20) L 01/14/17 06:38 Creatinine 0.5 mg/dL (0.8-1.5) L 01/14/17 06:38 Estimated GFR > 60 ml/min 01/14/17 06:38 BUN/Creatinine Ratio 14.00 % 01/14/17 06:38 Glucose 97 mg/dL (75-100) 01/14/17 06:38 Lactic Acid 0.80 mmol/L (0.7-2.0) 01/06/17 20:00 Uric Acid 5.3 mg/dL (3.5-7.6) 01/06/17 13:11 Calcium 8.9 mg/dL (8.4-10.2) 01/14/17 06:38 Magnesium 1.70 mg/dL (1.7-2.3) 01/08/17 17:35 Total Bilirubin 1.20 mg/dL (0.1-1.2) 01/06/17 13:11 AST 27 units/L (5-40) 01/06/17 13:11 ALT 24 units/L (7-56) 01/06/17 13:11 Alkaline Phosphatase 81 units/L (35-129) 01/06/17 13:11 C-Reactive Protein 25.90 mg/dL (0.00-1.30) H 01/12/17 10:22 Total Protein 9.3 g/dL (6.3-8.2) H 01/06/17 13:11 Albumin 4.0 g/dL (3.9-5) 01/06/17 13:11 Albumin/Globulin Ratio 0.8 % 01/06/17 13:11 Urine Color Yellow (Yellow) 01/06/17 14:50 Urine Turbidity Clear (Clear) 01/06/17 14:50 Urine pH 6.0 (5.0-7.0) 01/06/17 14:50 Ur Specific [place] 1.016 (1.003-1.030) 01/06/17 14:50 Urine Protein 30 mg/dl mg/dL (Negative) 01/06/17 14:50 Urine Glucose (UA) Neg mg/dL (Negative) 01/06/17 14:50 Urine Ketones Neg mg/dL (Negative) 01/06/17 14:50 Urine Blood Neg (Negative) 01/06/17 14:50 Urine Nitrite Neg (Negative) 01/06/17 14:50 Urine Bilirubin Neg (Negative) 01/06/17 14:50 Urine Urobilinogen 4.0 mg/dL (<2.0) 01/06/17 14:50 Ur Leukocyte Esterase Neg (Negative) 01/06/17 14:50 Urine WBC (Auto) 7.0 /HPF (0.0-6.0) H 01/06/17 14:50 Urine RBC (Auto) 5.0 /HPF (0.0-6.0) 01/06/17 14:50 Fluid Type Synovial 01/06/17 14:40 Fluid Color Straw 01/06/17 14:40 Fluid Appearance Cloudy 01/06/17 14:40 Fluid WBC 08602 /mm3 01/06/17 14:40 Fluid RBC 92031 /mm3 01/06/17 14:40 Fluid Seg Neutrophils 95.0 % 01/06/17 14:40 Fluid Lymphocytes 4.0 % 01/06/17 14:40 Fluid Reactive Lymphs 0 % 01/06/17 14:40 Fluid Monocytes 1.0 % 01/06/17 14:40 Fluid Eosinophils 0 % 01/06/17 14:40 Fluid Basophils 0 % 01/06/17 14:40 Synovial Crystals Negative (NONE SEEN) 01/06/17 14:40 Vancomycin Trough 11.3 ug/mL (5.0-20.0) 01/12/17 05:32 PAULETTE Screen Negative (Negative) 01/10/17 13:35 Proteinase 3 (PR3) Ab <1.0 AI (<1.0) 01/10/17 13:35 Myeloperoxidase Ab <1.0 AI (<1.0) 01/10/17 13:35 Complement C3 262 mg/dL (90-180) H 01/10/17 13:35 Complement C4 27 mg/dL (16-47) 01/10/17 13:35 Lymph Enumerat CD4/CD8 0.59 (0.86-5.00) L 01/10/17 13:35 % CD3 Cells 72 % (57-85) 01/10/17 13:35 Absolute CD3 Count 1024 cells/uL (840-3060) 01/10/17 13:35 % CD4 Cells 26 % (30-61) L 01/10/17 13:35 Absolute CD4 Count 363 cells/uL (490-1740) L 01/10/17 13:35 % CD8 Cells 44 % (12-42) H 01/10/17 13:35 Absolute CD8 Count 616 cells/uL (180-1170) 01/10/17 13:35 % CD19 Cells 9 % (6-29) 01/10/17 13:35 Absolute CD19 Count 126 cells/uL (110-660) 01/10/17 13:35 C.trachomatis DNA (SDA) Not detected (Not Detected) 01/10/17 Unknown HIV-1 RNA PCR copies/ml 5691 copies/mL (<20) H 01/10/17 13:35 HIV-1 RNA (PCR) log 3.76 Log cps/mL (<1.30) H 01/10/17 13:35 N.gonorrhoeae DNA (SDA) Not detected (Not Detected) 01/10/17 Unknown Miscellaneous Test Flexitest 1 01/10/17 13:35
[2017-01-14] MEDS: NACL 0.9% 1000 ML 1,000 ML IV SCH (16:15)
[2017-01-15] MEDS: TYLENOL PO PRN ×2 (01:04→14:09)
[2017-01-15] MEDS: ZOVIRAX 1,000 MG in NACL 0.9% 100 ML IV SCH (04:35)
[2017-01-15] MEDS: VANCOMYCIN 2,000 MG in NACL 0.9% 500 ML 500 ML IV SCH (06:00)
[2017-01-15] MEDS: ZOSYN/NS 4.5GM/100ML 4.5 GM/100 ML VIAL IV SCH ×3 (06:02→22:26)
[2017-01-15 06:22] LABS: Carbon Dioxide 23 mmol/L (22-30)
[2017-01-15 06:23] LABS: Anion Gap 17 mmol/L; Blood Urea Nitrogen 6 mg/dL (9-20); Calcium 8.9 mg/dL (8.4-10.2); Glucose 114 mg/dL (75-100); Potassium 3.9 mmol/L (3.6-5.0); Sodium 131 mmol/L (137-145)
[2017-01-15] MEDS: PERCOCET 5/325 PO PRN ×2 (06:33→18:19)
[2017-01-15] MEDS: HEPARIN SUB-Q SCH ×2 (10:01→22:29)
--- NOTE | 2017-01-15 10:55 | Progress Note ---
Assessment and Plan Assessment: 1) Sepsis: still fever despite 9 days broad spetrum antibiotics. Etiology - left knee pyogenic versus reactive arthritis +/- left gluteal abscess +/- ? acute "primary" genital HSV 2) Pyogenic versus reactive left knee arthritis. ? Gout ?pseudogout ? Tara -XR of the knee showed large effusion and ? avulsion of fracture. -Aspiration of the joint yielded cloudy fluid with WBC 36,800, RBC 25,150, 95 % neutrophils, NO crystals seen. Synovial Gram stain many PMN and no organisms. Synovial culture no growth. -CRP=18 --> 25 -Procalcitonin=0.1 -Blood cx negative. -GC and chlamydia in urine - negative -PAULETTE and ANCA negative 3) Left gluteal abscess: on/off for several months; per surgery - gluteal abscess I+D may not be necessary. CT abd pelvis no abscess 4) HIV - diagnosed in 2012, currently off ART (used to be on Stribild), stopped it 3 months ago after moving to [place] from [place]. ZQ7=465. VL=5,691 5) History of syphilis x 2, last time October 2016 treated. 6) Possible genital herpes Plan: -f/u HLA-B27 -continue vancomycin for and zosyn for now day 9 -stop IV acyclovir -start po valtrex -check uric acid -consider IV solumedrol to treat empirically gout/pseudogout/tara Thank you Dr Sanders for your consultation, will follow up with you. Cherry Verduzco MD Infectious Diseases Specialist [facility] M [phone] O [phone] Subjective Date of service: 01/15/17 Principal diagnosis: septic knee arthritis Interval history: Still spiking high fever 102, still knee swelling. Current Antimicrobials: zosyn 01/12 Vancomycin 01/07 Previous Antimicrobials: Unasyn 01/07 Ceftriaxone Flagyl Microbiology: Blood cultures: 01/06 ngtd Urine cultures: Respiratory cultures: Wound cultures: Stool cultures: Other: 01/06 synovial Gram stain many PMN and no organisms, no growth Objective - Exam Narrative Exam: General appearance: Alert in NAD, frustrated sad Eyes: anicteric sclerae, moist conjunctivae; no lid-lag; PERRLA HENT: Atraumatic; oropharynx clear. Neck: Trachea midline; supple, no thyromegaly or lymphadenopathy Lungs: CTA, with normal respiratory effort and no intercostal retractions CV: RRR, no murmurs Abdomen: Soft, non-tender; no masses or hepatosplenomegaly Extremities: +marked edema, tenderness and heat of left knee Skin: +left gluteal induration : normal external genitalia with multiple small blister in the glans Psych: frustrated sad crying. Neuro: alert and oriented x 3. Decreased MS legs BL Lines: No CVL / PICC - Constitutional Vitals: Vital Signs Temp Pulse Resp BP Pulse Ox 99.0 F 119 H 18 148/94 95 01/15/17 08:37 01/15/17 08:37 01/15/17 08:37 01/15/17 08:37 01/15/17 08:37 Temperature -Last 24 Hours Temperature 99.0 F Temperature 102.5 F Temperature 99.6 F - Labs CBC & Chem 7: 01/14/17 06:38 01/15/17 05:12 Labs: Abnormal lab results 01/15/17 01/15/17 Range/Units 05:12 05:12 Sodium 131 L (137-145) mmol/L Chloride 95.0 L (98-107) mmol/L BUN 6 L (9-20) mg/dL Creatinine 0.5 L (0.8-1.5) mg/dL Glucose 114 H (75-100) mg/dL Vancomycin Trough 25.9 H (5.0-20.0) ug/mL
[2017-01-15] MEDS: DILAUDID IV PRN ×2 (12:35→22:35)
--- NOTE | 2017-01-15 14:56 | Progress Note ---
Assessment and Plan Assessment and plan: Arthritis of the right knee pyogenic versus inflammatory - ID consulted and put on IV ceftriaxone and vancomycin - Patient still spiking fever - Orthopedics consult appreciated, drained 120 mL of yellow turbid fluid and recommended physical therapy - No organisms identified Reactive arthritis vs gout/pseudogout - Despite IV antibiotics the patient spikes fever and we will start him with solumedrol and colchicine Left gluteal abscess - Surgery consulted - no I/D indicated HSV infection - On IV acyclovir HIV - Patient is not on any antiretrovirals because the patient moves recently from [place] and been out of meds. - Patient needed to have follow-up as an outpatient in ID clinic DVT prophylaxis - On heparin Disposition - Will monitor how he responds with the new meds. Microbiology 01/12/17 10:20 Peripheral/Venous Blood Culture - Preliminary NO GROWTH AFTER 48 HOURS 01/12/17 14:23 Peripheral/Venous Blood Culture - Preliminary NO GROWTH AFTER 24 HOURS 01/06/17 13:40 Peripheral/Venous Blood Culture - Final NO GROWTH AFTER 5 DAYS 01/06/17 13:11 Peripheral/Venous Blood Culture - Final NO GROWTH AFTER 5 DAYS 01/06/17 14:40 Synovial Fluid - Right Knee Body Fluid Culture - Final History Interval history: Patient was seen and evaluated this morning, knee pain is getting better but swelling increased, still spiking fever and has vesicular penile lesions. Hospitalist Physical - Physical exam Narrative exam: Not in cardiopulmonary distress. The patient appeared well nourished and normally developed. Vital signs as documented. Head exam is unremarkable. No scleral icterus . Neck is without jugular venous distension, thyromegaly, or carotid bruits. Lungs are clear to auscultation. Cardiac exam reveals regular rate and Rhythm. First and second heart sounds normal. No murmurs, rubs or gallops. Abdominal exam reveals normal bowel sounds, no masses, no organomegaly and no aortic enlargement. Extremities swelling and tenderness of the right knee, left gluteal abscess. small vesicular penile lesions. 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 No focal weakness. - Constitutional Vitals: Temp Pulse Resp BP Pulse Ox 100.7 F H 129 H 19 135/78 97 01/15/17 11:39 01/15/17 11:39 01/15/17 11:39 01/15/17 11:39 01/15/17 11:39 General appearance: Present: no acute distress, well-nourished Results - Labs CBC & Chem 7: 01/14/17 06:38 01/15/17 05:12 Labs: Laboratory Last Values WBC 8.5 K/mm3 (4.5-11.0) 01/14/17 06:38 RBC 3.32 M/mm3 (3.65-5.03) L 01/14/17 06:38 Hgb 10.1 gm/dl (11.8-15.2) L 01/14/17 06:38 Hct 30.2 % (35.5-45.6) L 01/14/17 06:38 MCV 91 fl (84-94) 01/14/17 06:38 MCH 30 pg (28-32) 01/14/17 06:38 MCHC 33 % (32-34) 01/14/17 06:38 RDW 13.2 % (13.2-15.2) 01/14/17 06:38 Plt Count 452 K/mm3 (140-440) H 01/14/17 06:38 Lymph % (Auto) 15.8 % (13.4-35.0) 01/14/17 06:38 [place] % (Auto) 11.9 % (0.0-7.3) H 01/14/17 06:38 Eos % (Auto) 0.9 % (0.0-4.3) 01/14/17 06:38 Baso % (Auto) 0.2 % (0.0-1.8) 01/14/17 06:38 Lymph # 1.3 K/mm3 (1.2-5.4) 01/14/17 06:38 [place] # 1.0 K/mm3 (0.0-0.8) H 01/14/17 06:38 Eos # 0.1 K/mm3 (0.0-0.4) 01/14/17 06:38 Baso # 0.0 K/mm3 (0.0-0.1) 01/14/17 06:38 Seg Neutrophils % 71.2 % (40.0-70.0) H 01/14/17 06:38 Seg Neutrophils # 6.0 K/mm3 (1.8-7.7) 01/14/17 06:38 Abs Lymphs (Manual) 1431 cells/uL (850-3900) 01/10/17 13:35 PT 15.8 Sec. (12.2-14.9) H 01/06/17 13:11 INR 1.27 (0.87-1.13) H 01/06/17 13:11 VBG pH 7.415 (7.320-7.420) 01/06/17 13:11 Sodium 131 mmol/L (137-145) L 01/15/17 05:12 Potassium 3.9 mmol/L (3.6-5.0) 01/15/17 05:12 Chloride 95.0 mmol/L (98-107) L 01/15/17 05:12 Carbon Dioxide 23 mmol/L (22-30) 01/15/17 05:12 Anion Gap 17 mmol/L 01/15/17 05:12 BUN 6 mg/dL (9-20) L 01/15/17 05:12 Creatinine 0.5 mg/dL (0.8-1.5) L 01/15/17 05:12 Estimated GFR > 60 ml/min 01/15/17 05:12 BUN/Creatinine Ratio 12.00 % 01/15/17 05:12 Glucose 114 mg/dL (75-100) H 01/15/17 05:12 Lactic Acid 0.80 mmol/L (0.7-2.0) 01/06/17 20:00 Uric Acid 2.5 mg/dL (3.5-7.6) L 01/15/17 13:49 Calcium 8.9 mg/dL (8.4-10.2) 01/15/17 05:12 Magnesium 1.70 mg/dL (1.7-2.3) 01/08/17 17:35 Total Bilirubin 1.20 mg/dL (0.1-1.2) 01/06/17 13:11 AST 27 units/L (5-40) 01/06/17 13:11 ALT 24 units/L (7-56) 01/06/17 13:11 Alkaline Phosphatase 81 units/L (35-129) 01/06/17 13:11 C-Reactive Protein 25.90 mg/dL (0.00-1.30) H 01/12/17 10:22 Total Protein 9.3 g/dL (6.3-8.2) H 01/06/17 13:11 Albumin 4.0 g/dL (3.9-5) 01/06/17 13:11 Albumin/Globulin Ratio 0.8 % 01/06/17 13:11 Urine Color Yellow (Yellow) 01/06/17 14:50 Urine Turbidity Clear (Clear) 01/06/17 14:50 Urine pH 6.0 (5.0-7.0) 01/06/17 14:50 Ur Specific [place] 1.016 (1.003-1.030) 01/06/17 14:50 Urine Protein 30 mg/dl mg/dL (Negative) 01/06/17 14:50 Urine Glucose (UA) Neg mg/dL (Negative) 01/06/17 14:50 Urine Ketones Neg mg/dL (Negative) 01/06/17 14:50 Urine Blood Neg (Negative) 01/06/17 14:50 Urine Nitrite Neg (Negative) 01/06/17 14:50 Urine Bilirubin Neg (Negative) 01/06/17 14:50 Urine Urobilinogen 4.0 mg/dL (<2.0) 01/06/17 14:50 Ur Leukocyte Esterase Neg (Negative) 01/06/17 14:50 Urine WBC (Auto) 7.0 /HPF (0.0-6.0) H 01/06/17 14:50 Urine RBC (Auto) 5.0 /HPF (0.0-6.0) 01/06/17 14:50 Fluid Type Synovial 01/06/17 14:40 Fluid Color Straw 01/06/17 14:40 Fluid Appearance Cloudy 01/06/17 14:40 Fluid WBC 59162 /mm3 01/06/17 14:40 Fluid RBC 94425 /mm3 01/06/17 14:40 Fluid Seg Neutrophils 95.0 % 01/06/17 14:40 Fluid Lymphocytes 4.0 % 01/06/17 14:40 Fluid Reactive Lymphs 0 % 01/06/17 14:40 Fluid Monocytes 1.0 % 01/06/17 14:40 Fluid Eosinophils 0 % 01/06/17 14:40 Fluid Basophils 0 % 01/06/17 14:40 Synovial Crystals Negative (NONE SEEN) 01/06/17 14:40 Vancomycin Trough 25.9 ug/mL (5.0-20.0) H 01/15/17 05:12 PAULETTE Screen Negative (Negative) 01/10/17 13:35 Proteinase 3 (PR3) Ab <1.0 AI (<1.0) 01/10/17 13:35 Myeloperoxidase Ab <1.0 AI (<1.0) 01/10/17 13:35 Complement C3 262 mg/dL (90-180) H 01/10/17 13:35 Complement C4 27 mg/dL (16-47) 01/10/17 13:35 Lymph Enumerat CD4/CD8 0.59 (0.86-5.00) L 01/10/17 13:35 % CD3 Cells 72 % (57-85) 01/10/17 13:35 Absolute CD3 Count 1024 cells/uL (840-3060) 01/10/17 13:35 % CD4 Cells 26 % (30-61) L 01/10/17 13:35 Absolute CD4 Count 363 cells/uL (490-1740) L 01/10/17 13:35 % CD8 Cells 44 % (12-42) H 01/10/17 13:35 Absolute CD8 Count 616 cells/uL (180-1170) 01/10/17 13:35 % CD19 Cells 9 % (6-29) 01/10/17 13:35 Absolute CD19 Count 126 cells/uL (110-660) 01/10/17 13:35 C.trachomatis DNA (SDA) Not detected (Not Detected) 01/10/17 Unknown HIV-1 RNA PCR copies/ml 5691 copies/mL (<20) H 01/10/17 13:35 HIV-1 RNA (PCR) log 3.76 Log cps/mL (<1.30) H 01/10/17 13:35 N.gonorrhoeae DNA (SDA) Not detected (Not Detected) 01/10/17 Unknown Miscellaneous Test Flexitest 1 01/10/17 13:35
[2017-01-15] MEDS: COLCRYS PO SCH ×2 (15:26→22:28)
[2017-01-15] MEDS: VALTREX PO SCH ×2 (15:26→22:28)
[2017-01-15] MEDS: NACL 0.9% 1000 ML 1,000 ML IV SCH (22:25)
[2017-01-15] MEDS: ZOFRAN IV PRN (22:28)
[2017-01-15] MEDS: VANCOMYCIN 1,750 MG in NACL 0.9% 500 ML 500 ML IV SCH (22:46)
[2017-01-16 05:29] LABS: Anion Gap 19 mmol/L; Blood Urea Nitrogen 11 mg/dL (9-20); Calcium 8.9 mg/dL (8.4-10.2); Carbon Dioxide 22 mmol/L (22-30); Chloride 99.7 mmol/L (98-107); Glucose 126 mg/dL (75-100); Potassium 4.6 mmol/L (3.6-5.0); Sodium 136 mmol/L (137-145)
[2017-01-16 05:35] LABS: Basophils % (Auto) 0.1 % (0.0-1.8); Hematocrit 29.7 % (35.5-45.6); Hemoglobin 10.1 gm/dl (11.8-15.2); Mean Corpuscular HGB Conc 34 % (32-34); Mean Corpuscular Hemoglobin 31 pg (28-32); Mean Corpuscular Volume 91 fl (84-94); Platelet Count 488 K/mm3 (140-440); Red Blood Count 3.28 M/mm3 (3.65-5.03); Red Cell Distribution Width 13.6 % (13.2-15.2); White Blood Count 8.7 K/mm3 (4.5-11.0)
[2017-01-16] MEDS: ZOSYN/NS 4.5GM/100ML 4.5 GM/100 ML VIAL IV SCH (06:33)
[2017-01-16] MEDS: VANCOMYCIN 1,750 MG in NACL 0.9% 500 ML 500 ML IV SCH (06:34)
[2017-01-16] MEDS: VALTREX PO SCH ×3 (09:42→21:48)
[2017-01-16] MEDS: DILAUDID IV PRN ×3 (09:53→21:58)
[2017-01-16] MEDS: HEPARIN SUB-Q SCH ×2 (10:00→21:58)
--- NOTE | 2017-01-16 11:36 | Progress Note ---
Assessment and Plan Assessment: 1) Sepsis: fever trending down after adding IV steroids. Etiology - likely left knee reactive arthritis +/- left gluteal abscess +/- ? acute "primary" genital HSV 2) Presumed reactive left knee arthritis. ? Gout ? pseudogout ? Tara - better after started on IV steroids -XR of the knee showed large effusion and ? avulsion of fracture. -Aspiration of the joint yielded cloudy fluid with WBC 36,800, RBC 25,150, 95 % neutrophils, NO crystals seen. Synovial Gram stain many PMN and no organisms. Synovial culture no growth. -CRP=18 --> 25 -Procalcitonin=0.1 -Blood cx negative. -GC and chlamydia in urine - negative -PAULETTE and ANCA negative 3) Left gluteal abscess: on/off for several months; per surgery - gluteal abscess I+D may not be necessary. CT abd pelvis no abscess 4) HIV - diagnosed in 2012, currently off ART (used to be on Stribild), stopped it 3 months ago after moving to [place] from [place]. XX8=147. VL=5,691 5) History of syphilis x 2, last time October 2016 treated. 6) Possible genital herpes Plan: -monitor fever -taper steroids over 10 days with prednisone 20 mg BID -f/u HLA-B27 -stop vancomycin for and zosyn day 10 -continue po valtrex 1 g BID for 10 days -check uric acid - pending Thank you Dr Abarca for your consultation, will follow up with you. Cherry Verduzco MD Infectious Diseases Specialist [facility] [place] [phone] O [phone] Subjective Date of service: 01/16/17 Principal diagnosis: septic knee arthritis Interval history: Feels much better, fever trending down, knee pain is now minimal Current Antimicrobials: zosyn 01/12 Vancomycin 01/07 Previous Antimicrobials: Unasyn 01/07 Ceftriaxone Flagyl Microbiology: Blood cultures: 01/06 ngtd Other: 01/06 synovial Gram stain many PMN and no organisms, no growth Objective - Exam Narrative Exam: General appearance: Alert in NAD, frustrated sad Eyes: anicteric sclerae, moist conjunctivae; no lid-lag; PERRLA HENT: Atraumatic; oropharynx clear. Neck: Trachea midline; supple, no thyromegaly or lymphadenopathy Lungs: CTA, with normal respiratory effort and no intercostal retractions CV: RRR, no murmurs Abdomen: Soft, non-tender; no masses or hepatosplenomegaly Extremities: +marked edema, tenderness and heat of left knee Skin: +left gluteal induration : normal external genitalia with multiple small blister in the glans Psych: frustrated sad crying. Neuro: alert and oriented x 3. Decreased MS legs BL Lines: No CVL / PICC - Constitutional Vitals: Vital Signs Temp Pulse Resp BP Pulse Ox 98.0 F 94 H 16 130/79 97 01/16/17 07:08 01/16/17 07:08 01/16/17 07:08 01/16/17 07:08 01/16/17 07:08 Temperature -Last 24 Hours Temperature 98.0 F Temperature 97.8 F Temperature 100.7 F - Labs CBC & Chem 7: 01/16/17 04:26 01/16/17 04:26 Labs: Abnormal lab results 01/15/17 01/16/17 01/16/17 Range/Units 13:49 04:26 04:26 RBC 3.28 L (3.65-5.03) M/mm3 Hgb 10.1 L (11.8-15.2) gm/dl Hct 29.7 L (35.5-45.6) % Plt Count 488 H (140-440) K/mm3 Seg Neutrophils % 78.9 H (40.0-70.0) % Sodium 136 L (137-145) mmol/L Creatinine 0.4 L (0.8-1.5) mg/dL Glucose 126 H (75-100) mg/dL Uric Acid 2.5 L (3.5-7.6) mg/dL
--- NOTE | 2017-01-16 11:38 | Progress Note ---
Assessment and Plan Assessment and plan: Arthritis of the right knee pyogenic versus inflammatory - ID consulted and put on IV ceftriaxone and vancomycin - Patient spiking fever--100.7 at 11:30 AM 01/15/17. No fever today.. 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 - Patient needed to have follow-up as an outpatient in ID clinic DVT prophylaxis - On heparin Disposition - If afebrile for the next 24 hours, will DC home per ID. History Interval history: No new issues overnight. Hospitalist Physical - Constitutional Vitals: Temp Pulse Resp BP Pulse Ox 98.0 F 94 H 16 130/79 97 01/16/17 07:08 01/16/17 07:08 01/16/17 07:08 01/16/17 07:08 01/16/17 07:08 General appearance: Present: no acute distress, well-nourished - EENT Eyes: Present: PERRL, EOM intact ENT: hearing intact, clear oral mucosa, dentition normal - Neck Neck: Present: supple, normal ROM - Respiratory Respiratory effort: normal Respiratory: bilateral: CTA - Cardiovascular Rhythm: regular Heart Sounds: Present: S1 & S2. Absent: gallop, rub - Extremities Extremities: no ischemia, No edema, Full ROM - Abdominal General gastrointestinal: soft, non-tender, non-distended, normal bowel sounds - Integumentary Integumentary: Present: clear, warm, dry - Neurologic Neurologic: CNII-XII intact, moves all extremities Results - Labs CBC & Chem 7: 01/16/17 04:26 01/16/17 04:26 Labs: Laboratory Last Values WBC 8.7 K/mm3 (4.5-11.0) 01/16/17 04:26 RBC 3.28 M/mm3 (3.65-5.03) L 01/16/17 04:26 Hgb 10.1 gm/dl (11.8-15.2) L 01/16/17 04:26 Hct 29.7 % (35.5-45.6) L 01/16/17 04:26 MCV 91 fl (84-94) 01/16/17 04:26 MCH 31 pg (28-32) 01/16/17 04:26 MCHC 34 % (32-34) 01/16/17 04:26 RDW 13.6 % (13.2-15.2) 01/16/17 04:26 Plt Count 488 K/mm3 (140-440) H 01/16/17 04:26 Lymph % (Auto) 15.2 % (13.4-35.0) 01/16/17 04:26 [place] % (Auto) 5.8 % (0.0-7.3) 01/16/17 04:26 Eos % (Auto) 0.0 % (0.0-4.3) 01/16/17 04:26 Baso % (Auto) 0.1 % (0.0-1.8) 01/16/17 04:26 Lymph # 1.3 K/mm3 (1.2-5.4) 01/16/17 04:26 [place] # 0.5 K/mm3 (0.0-0.8) 01/16/17 04:26 Eos # 0.0 K/mm3 (0.0-0.4) 01/16/17 04:26 Baso # 0.0 K/mm3 (0.0-0.1) 01/16/17 04:26 Seg Neutrophils % 78.9 % (40.0-70.0) H 01/16/17 04:26 Seg Neutrophils # 6.8 K/mm3 (1.8-7.7) 01/16/17 04:26 Abs Lymphs (Manual) 1431 cells/uL (850-3900) 01/10/17 13:35 PT 15.8 Sec. (12.2-14.9) H 01/06/17 13:11 INR 1.27 (0.87-1.13) H 01/06/17 13:11 VBG pH 7.415 (7.320-7.420) 01/06/17 13:11 Sodium 136 mmol/L (137-145) L 01/16/17 04:26 Potassium 4.6 mmol/L (3.6-5.0) 01/16/17 04:26 Chloride 99.7 mmol/L (98-107) 01/16/17 04:26 Carbon Dioxide 22 mmol/L (22-30) 01/16/17 04:26 Anion Gap 19 mmol/L 01/16/17 04:26 BUN 11 mg/dL (9-20) 01/16/17 04:26 Creatinine 0.4 mg/dL (0.8-1.5) L 01/16/17 04:26 Estimated GFR > 60 ml/min 01/16/17 04:26 BUN/Creatinine Ratio 27.50 % 01/16/17 04:26 Glucose 126 mg/dL (75-100) H 01/16/17 04:26 Lactic Acid 0.80 mmol/L (0.7-2.0) 01/06/17 20:00 Uric Acid 2.5 mg/dL (3.5-7.6) L 01/15/17 13:49 Calcium 8.9 mg/dL (8.4-10.2) 01/16/17 04:26 Magnesium 1.70 mg/dL (1.7-2.3) 01/08/17 17:35 Total Bilirubin 1.20 mg/dL (0.1-1.2) 01/06/17 13:11 AST 27 units/L (5-40) 01/06/17 13:11 ALT 24 units/L (7-56) 01/06/17 13:11 Alkaline Phosphatase 81 units/L (35-129) 01/06/17 13:11 C-Reactive Protein 25.90 mg/dL (0.00-1.30) H 01/12/17 10:22 Total Protein 9.3 g/dL (6.3-8.2) H 01/06/17 13:11 Albumin 4.0 g/dL (3.9-5) 01/06/17 13:11 Albumin/Globulin Ratio 0.8 % 01/06/17 13:11 Urine Color Yellow (Yellow) 01/06/17 14:50 Urine Turbidity Clear (Clear) 01/06/17 14:50 Urine pH 6.0 (5.0-7.0) 01/06/17 14:50 Ur Specific [place] 1.016 (1.003-1.030) 01/06/17 14:50 Urine Protein 30 mg/dl mg/dL (Negative) 01/06/17 14:50 Urine Glucose (UA) Neg mg/dL (Negative) 01/06/17 14:50 Urine Ketones Neg mg/dL (Negative) 01/06/17 14:50 Urine Blood Neg (Negative) 01/06/17 14:50 Urine Nitrite Neg (Negative) 01/06/17 14:50 Urine Bilirubin Neg (Negative) 01/06/17 14:50 Urine Urobilinogen 4.0 mg/dL (<2.0) 01/06/17 14:50 Ur Leukocyte Esterase Neg (Negative) 01/06/17 14:50 Urine WBC (Auto) 7.0 /HPF (0.0-6.0) H 01/06/17 14:50 Urine RBC (Auto) 5.0 /HPF (0.0-6.0) 01/06/17 14:50 Fluid Type Synovial 01/06/17 14:40 Fluid Color Straw 01/06/17 14:40 Fluid Appearance Cloudy 01/06/17 14:40 Fluid WBC 61567 /mm3 01/06/17 14:40 Fluid RBC 65033 /mm3 01/06/17 14:40 Fluid Seg Neutrophils 95.0 % 01/06/17 14:40 Fluid Lymphocytes 4.0 % 01/06/17 14:40 Fluid Reactive Lymphs 0 % 01/06/17 14:40 Fluid Monocytes 1.0 % 01/06/17 14:40 Fluid Eosinophils 0 % 01/06/17 14:40 Fluid Basophils 0 % 01/06/17 14:40 Synovial Crystals Negative (NONE SEEN) 01/06/17 14:40 Vancomycin Trough 25.9 ug/mL (5.0-20.0) H 01/15/17 05:12 PAULETTE Screen Negative (Negative) 01/10/17 13:35 Proteinase 3 (PR3) Ab <1.0 AI (<1.0) 01/10/17 13:35 Myeloperoxidase Ab <1.0 AI (<1.0) 01/10/17 13:35 Complement C3 262 mg/dL (90-180) H 01/10/17 13:35 Complement C4 27 mg/dL (16-47) 01/10/17 13:35 Lymph Enumerat CD4/CD8 0.59 (0.86-5.00) L 01/10/17 13:35 % CD3 Cells 72 % (57-85) 01/10/17 13:35 Absolute CD3 Count 1024 cells/uL (840-3060) 01/10/17 13:35 % CD4 Cells 26 % (30-61) L 01/10/17 13:35 Absolute CD4 Count 363 cells/uL (490-1740) L 01/10/17 13:35 % CD8 Cells 44 % (12-42) H 01/10/17 13:35 Absolute CD8 Count 616 cells/uL (180-1170) 01/10/17 13:35 % CD19 Cells 9 % (6-29) 01/10/17 13:35 Absolute CD19 Count 126 cells/uL (110-660) 01/10/17 13:35 C.trachomatis DNA (SDA) Not detected (Not Detected) 01/10/17 Unknown HIV-1 RNA PCR copies/ml 5691 copies/mL (<20) H 01/10/17 13:35 HIV-1 RNA (PCR) log 3.76 Log cps/mL (<1.30) H 01/10/17 13:35 N.gonorrhoeae DNA (SDA) Not detected (Not Detected) 01/10/17 Unknown Miscellaneous Test Flexitest 1 01/10/17 13:35
[2017-01-16] MEDS: COLCRYS PO SCH ×2 (12:02→21:48)
[2017-01-17] MEDS: DILAUDID IV PRN (01:43)
[2017-01-17] MEDS: NACL 0.9% 1000 ML 1,000 ML IV SCH (01:43)
[2017-01-17 05:48] LABS: Anion Gap 17 mmol/L; Blood Urea Nitrogen 11 mg/dL (9-20); Calcium 9.1 mg/dL (8.4-10.2); Carbon Dioxide 23 mmol/L (22-30); Chloride 101.6 mmol/L (98-107); Glucose 122 mg/dL (75-100); Potassium 4.8 mmol/L (3.6-5.0); Sodium 137 mmol/L (137-145)
--- NOTE | 2017-01-17 07:30 | Discharge Summary ---
Providers - Providers Date of Admission: 01/06/17 16:43 Date of discharge: 01/17/17 Attending physician: YUE MCCARTHY 01/07/17 08:10 Consult to Physician [CONS] Routine Consulting Provider: JESSE QUEVEDO Reason For Exam: knee swelling Place consult to:: dr. quevedo Notified:: . Comment:: done. No need to call 01/08/17 07:23 Consult to Wound/ET Nurse [CONS] Routine Reason For Exam: wound eval 01/10/17 08:15 Consult to Physician [CONS] Routine Consulting Provider: VANESSA BURTON Reason For Exam: septic arthritis Place consult to:: ID Notified:: md Was contact made?: Yes If yes, spoke with:: dr. parisi Time called:: 09:57 01/10/17 10:30 Physical Therapy Evaluation and Treat [CONS] Routine Comment: Reason For Exam: JOINT PAIN AND SWELLING 01/11/17 09:35 Consult to Physician [CONS] Routine Consulting Provider: TASIA COULTER Reason For Exam: buttock abscess Place consult to:: Dr coulter Notified:: yes Was contact made?: Yes Time called:: 09:30 Comment:: will see pt Primary care physician: SECTION CHIEF Hospitalization Reason for admission: right knee pain Condition: Stable Hospital course: 26-year-old male with significant past medical history for HIV presented through the emergency department complaining of right knee pain and swelling for 2 days prior to admission. Patient denied any trauma or rheumatological history. In the emergency Department patient was noted to have a temperature 100.5, lactate of 2.4 and white count of 10.9. Patient was seen by orthopedics in consultation and underwent aspiration of the joint which yielded cloudy fluid with WBC 36,800, RBC 25,150 with 95 percent neutrophils. Gram stain revealed many PMNs and no organisms. No crystals were seen either. Patient was treated with IV antibiotics. Patient was also seen by infectious disease in consultation. Patient continued to spike fevers during hospitalization. Therefore, there was some concern of other infectious etiology. Patient was noted to have a left gluteal abscess that has been present intermittently for several months. Patient was seen by surgical consultation that no incision and drainage was indicated at this time. Patient was treated with IV acyclovir for HSV genital infection. Blood cultures were noted to be negative. GC and chlamydia and urine were negative. PAULETTE and ANCA were also negative. Etiology of the left knee swelling was felt to be presumed reactive left knee arthritis potentially related to gout, pseudogout or Tara syndrome. Patient was treated with a course of empiric steroids and had significant improvement. Patient's fever resolved. Patient is felt to have received maximal hospital benefit and will be discharged home. Dedicated discharge time 35 minutes. Discharge medications --steroid taper with prednisone 20 mg twice a day, by mouth Valtrex 1 g twice a day for 10 days. Disposition: DC-01 TO HOME OR SELFCARE Time spent for discharge: 35 - Discharge Diagnoses (1) Genital herpes in men Status: Acute (2) HIV (human immunodeficiency virus infection) Status: Acute (3) Knee effusion, right Status: Acute (4) Left buttock abscess Status: Acute (5) Pain and swelling of right knee Status: Acute Core Measure Documentation - Palliative Care Palliative Care/ Comfort Measures: Not Applicable - Core Measures Any of the following diagnoses?: none Exam - Constitutional Vitals: Temp Pulse Resp BP Pulse Ox 98.4 F 84 18 131/71 96 01/16/17 23:38 01/16/17 23:38 01/16/17 23:38 01/16/17 23:38 01/16/17 23:38 General appearance: Present: no acute distress, well-nourished - EENT Eyes: Present: PERRL ENT: hearing intact, clear oral mucosa - Neck Neck: Present: supple, normal ROM - Respiratory Respiratory effort: normal Respiratory: bilateral: CTA - Cardiovascular Heart Sounds: Present: S1 & S2. Absent: rub, click - Extremities Extremities: pulses symmetrical, No edema Peripheral Pulses: within normal limits - Abdominal General gastrointestinal: Present: soft, non-tender, non-distended, normal bowel sounds Male genitourinary: Present: normal - Integumentary Integumentary: Present: clear, warm, dry - Musculoskeletal Musculoskeletal: gait normal, strength equal bilaterally - Psychiatric Psychiatric: appropriate mood/affect, intact judgment & insight - Neurologic Neurologic: CNII-XII intact, moves all extremities Plan Activity: no restrictions Weight Bearing Status: Weight Bear as Tolerated Diet: regular Follow up with: MIRACLE GONCALVES MD [Primary Care Provider] - 3-5 Days VANESSA BURTON MD [Staff Physician] - 7 Days Prescriptions: Colchicine [Colcrys] 0.6 mg PO BID #20 tablet oxyCODONE /ACETAMINOPHEN [Percocet 5/325 mg] 2 tab PO Q6H PRN #15 tablet PRN Reason: Pain, Moderate (4-6) predniSONE [Deltasone] 10 mg PO .TAPER #21 tab valACYclovir [Valtrex] 1,000 mg PO BID #20 tab
[2017-01-17] MEDS: VALTREX PO SCH (08:52)
[2017-01-17 08:55] VITALS: BP 127/81
--- NOTE | 2017-01-17 10:38 | Progress Note ---
Assessment and Plan Assessment: 1) Sepsis: fever resolved after adding IV steroids. Etiology - likely left knee reactive arthritis +/- left gluteal abscess +/- ? acute "primary" genital HSV 2) Presumed reactive left knee arthritis. ? Gout ? pseudogout ? Tara - better after started on IV steroids -XR of the knee showed large effusion and ? avulsion of fracture. -Aspiration of the joint yielded cloudy fluid with WBC 36,800, RBC 25,150, 95 % neutrophils, NO crystals seen. Synovial Gram stain many PMN and no organisms. Synovial culture no growth. -CRP=18 --> 25 -Procalcitonin=0.1 -Blood cx negative. -GC and chlamydia in urine - negative -PAULETTE and ANCA negative 3) Left gluteal abscess: on/off for several months; per surgery - gluteal abscess I+D may not be necessary. CT abd pelvis no abscess 4) HIV - diagnosed in 2012, currently off ART (used to be on Stribild), stopped it 3 months ago after moving to [place] from [place]. OP2=596. VL=5,691 5) History of syphilis x 2, last time October 2016 treated. 6) Possible genital herpes Plan: -taper down steroids over 10 days with prednisone 20 mg BID -f/u HLA-B27 -continue po valtrex 1 g BID for 10 days -check uric acid - pending I will sign off Thank you Dr Abarca for your consultation, will follow up with you. Cherry Verduzco MD Infectious Diseases Specialist [facility] M [phone] O [phone] Subjective Date of service: 01/17/17 Principal diagnosis: septic knee arthritis Interval history: Feels great, fever resolved, knee pain is now minimal Current Antimicrobials: none Previous Antimicrobials: Unasyn 01/07 Ceftriaxone Flagyl zosyn 01/12 Vancomycin 01/07 Microbiology: Blood cultures: 01/06 ngtd Other: 01/06 synovial Gram stain many PMN and no organisms, no growth Objective - Exam Narrative Exam: General appearance: Alert in NAD, frustrated sad Eyes: anicteric sclerae, moist conjunctivae; no lid-lag; PERRLA HENT: Atraumatic; oropharynx clear. Neck: Trachea midline; supple, no thyromegaly or lymphadenopathy Lungs: CTA, with normal respiratory effort and no intercostal retractions CV: RRR, no murmurs Abdomen: Soft, non-tender; no masses or hepatosplenomegaly Extremities: +marked edema, tenderness and heat of left knee - decreased Skin: +left gluteal induration : normal external genitalia with multiple small blister in the glans Psych: frustrated sad crying. Neuro: alert and oriented x 3. Decreased MS legs BL Lines: No CVL / PICC - Constitutional Vitals: Vital Signs Temp Pulse Resp BP Pulse Ox 97.9 F 76 18 127/81 100 01/17/17 08:00 01/17/17 08:00 01/17/17 08:00 01/17/17 08:00 01/17/17 08:00 Temperature -Last 24 Hours Temperature 97.9 F Temperature 98.4 F Temperature 98.1 F - Labs CBC & Chem 7: 01/16/17 04:26 01/17/17 04:49 Labs: Abnormal lab results 01/17/17 01/17/17 Range/Units 04:49 04:49 Creatinine 0.4 L (0.8-1.5) mg/dL Glucose 122 H (75-100) mg/dL Vancomycin Trough 2.7 L (5.0-20.0) ug/mL
[2017-01-17] MEDS: COLCRYS PO SCH (10:39)
[2017-01-17] MEDS: HEPARIN SUB-Q SCH (10:40)
== END 2017-01-17 12:33 | disposition home or self-care (01) | DRG 872 ==
LOC: ED 11:41 → 3A 16:43 → 4A 17:36 → 3A 18:04
PROVIDERS: ADMIT Internal Medicine; ATTEND Hospitalist
PROC: 0S9C3ZZ Drainage of Right Knee Joint, Percutaneous Approach (ICD-10-PCS; principal; 2017-01-06)
DX: A41.9 Sepsis, unspecified organism (principal); L02.31 Cutaneous abscess of buttock; M02.362 Reiter's disease, left knee; M00.861 Arthritis due to other bacteria, right knee; E87.1 Hypo-osmolality and hyponatremia; M25.461 Effusion, right knee; F17.200 Nicotine dependence, unspecified, uncomplicated; E87.6 Hypokalemia
CPT/HCPCS: 36415; 71010; 74176; 80048; 80053; 80202; 81001; 82024; 82140; 82805; 83735; 84550; 85025; 85027; 85048; 85610; 86021; 86038; 86140; 86160; 86812; 87040; 87116; 87536; 87591; 89051; 93005; 93010; 96361; 96365; 96375; J0133; J0295; J0696; J1170; J1644; J2270; J2405; J2543; J2920; J3370; J7030; J7040

== ENCOUNTER 2017-01-19 01:23 | Inpatient (IN) | payer SELFPAY ==
[2017-01-19 02:42] LABS: Basophils % (Auto) 0.7 % (0.0-1.8); Eosinophils % (Auto) 0.4 % (0.0-4.3); Hematocrit 31.8 % (35.5-45.6); Hemoglobin 10.9 gm/dl (11.8-15.2); Mean Corpuscular HGB Conc 34 % (32-34); Mean Corpuscular Hemoglobin 31 pg (28-32); Mean Corpuscular Volume 90 fl (84-94); Platelet Count 562 K/mm3 (140-440); Red Blood Count 3.52 M/mm3 (3.65-5.03); Red Cell Distribution Width 13.8 % (13.2-15.2); White Blood Count 9.6 K/mm3 (4.5-11.0)
[2017-01-19] MEDS ORDERED: ZOFRAN IV ONE (03:01)
[2017-01-19] MEDS ORDERED: MORPHINE IV ONE (03:01)
[2017-01-19] MEDS ORDERED: NACL 0.9% 1000 ML 1,000 ML IV ONE (03:01)
[2017-01-19] MEDS ORDERED: VANCOMYCIN/NS 1 GM/250 ML 1 GM/250 ML BAG IV ONE (03:02)
[2017-01-19 03:03] LABS: Blood Urea Nitrogen 9 mg/dL (9-20); Calcium 8.6 mg/dL (8.4-10.2); Carbon Dioxide 23 mmol/L (22-30); Chloride 98.6 mmol/L (98-107); Glucose 93 mg/dL (75-100); Sodium 135 mmol/L (137-145); Uric Acid 3.9 mg/dL (3.5-7.6)
[2017-01-19] MEDS ORDERED: ZOSYN/NS 3.375GM/50ML 3.375 GM/50 ML BAG IV ONE (03:03)
--- NOTE | 2017-01-19 03:05 | Emergency Department Report ---
HPI - General Chief Complaint: Extremity Injury, Lower Time Seen by Provider: 01/19/17 02:02 - HPI HPI: The patient is a 26-year-old male presents for evaluation of pain to the right knee. The patient reports a history of recent diagnosis of septic arthritis of the right knee. He is released from hospital admission for treatment of the right knee 2 days ago. He reports recurrence of right knee swelling and pain one day ago, constant since onset, 10/10 in severity, throbbing in quality, exacerbated with weightbearing on the right knee. He states that his pain has been progressive and he has been unable to ambulate today. He also reports associated chills, night sweats, and development of generalized myalgias yesterday. ED Past Medical Hx - Past Medical History Previous Medical History?: Yes Hx Congestive Heart Failure: No Hx Diabetes: No Hx Asthma: No Hx COPD: No Hx HIV: Yes Additional medical history: gout - Surgical History Past Surgical History?: Yes Additional Surgical History: HERNIA - Social History Smoking Status: Current Some Day Smoker Substance Use Type: Alcohol, Marijuana - Medications Home Medications: Home Medications Medication Instructions Recorded Confirmed Last Taken Type Stribild Tablet 1 tab PO DAILY 01/08/17 01/08/17 Unknown History Colchicine [Colcrys] 0.6 mg PO BID #20 tablet 01/17/17 Unknown Rx oxyCODONE /ACETAMINOPHEN [Percocet 2 tab PO Q6H PRN #15 tablet 01/17/17 Unknown Rx 5/325 mg] predniSONE [Deltasone] 10 mg PO .TAPER #21 tab 01/17/17 Unknown Rx valACYclovir [Valtrex] 1,000 mg PO BID #20 tab 01/17/17 Unknown Rx ED Review of Systems ROS: Stated complaint: SWOLLEN RT KNEE Other details as noted in HPI Constitutional: Reports chills and night sweats denies: fever ENT: denies: throat or neck pain Respiratory: denies: cough, shortness of breath Cardiovascular: denies: chest pain Endocrine: denies unexplained weight loss or gain Gastrointestinal: denies: abdominal pain, nausea Genitourinary: denies: dysuria Musculoskeletal: right knee pain and swelling present Skin: denies: rash Neurological: denies: headache Hematological/Lymphatic: denies: easy bleeding or easy bruising Psych: denies sadness or hopelessness Physical Exam - Physical Exam Vital Signs: Vital Signs 01/19/17 01:30 Temperature 98.5 F Pulse Rate 105 H Respiratory 18 Rate Blood Pressure 141/87 O2 Sat by Pulse 98 Oximetry Physical Exam: General: well-nourished, well-developed, no acute distress Head: Normocephalic, atraumatic Eyes: normal sclera ENT: Mucous membranes are pale and dry Neck: No neck stiffness, no cervical adenopathy Respiratory: Breath sounds equal bilaterally, no wheezing, rales, or rhonchi Cardio: S1 and S2 present, no murmurs, rubs, gallops, capillary refill is delayed Abdomen: Normoactive bowel sounds, soft abdomen, no rigidity, no guarding or rebound tenderness Musc: Right knee is warm to touch, swelling, with positive knee effusion, pain reproduced with passive or active range of motion of the right knee, range of motion of the right knee limited Skin: No rash Neuro: no facial drooping, normal speech Psych: Normal affect ED Course Vital Signs 01/19/17 01:30 Temperature 98.5 F Pulse Rate 105 H Respiratory 18 Rate Blood Pressure 141/87 O2 Sat by Pulse 98 Oximetry ED Medical Decision Making - Lab Data Result diagrams: 01/19/17 02:24 01/19/17 02:24 - Medical Decision Making The patient was seen and examined by myself. The patient is placed on a quality assurance monitor chassis and continuous pulse ox. On initial evaluation, the patient was found to be in no distress. Evaluation orders were placed. The patient is given IV morphine for his pain and 1 L normal saline fluid bolus for dehydration. Lab results reveal elevated CRP of 7.10, elevated potassium of 5.3 , and high normal WBC of 9.6. The patient is given IV Zosyn and vancomycin for treatment of suspected recurrent septic arthritis. X-ray of the right knee is negative for obvious periosteal elevation. The on-call hospitalist service was contacted. The on-call hospitalist Dr. Mcgarry agreed to assume care of the patient. The ED admit order was placed. Critical care attestation.: If time is entered above; I have spent that time in minutes in the direct care of this critically ill patient, excluding procedure time. ED Disposition Clinical Impression: Knee effusion, right, Acute pain of right knee, Dehydration Septic arthritis Qualifiers: Septic arthritis location: knee Septic arthritis organism: due to unspecified organism Laterality: right Qualified Code(s): M00.9 - Pyogenic arthritis, unspecified Disposition: OP ADMIT IP TO THIS HOSP Is pt being admited?: Yes Does the pt Need Aspirin: Yes Condition: Serious Referrals: PRIMARY CARE, [Primary Care Provider] - 3-5 Days Time of Disposition: 03:03
[2017-01-19 03:07] LABS: Anion Gap 19 mmol/L; Potassium 5.3 mmol/L (3.6-5.0)
[2017-01-19 03:17] LABS: Erythrocyte Sedimentation Rate 96 mm/Hr (0-20)
[2017-01-19] MEDS ORDERED: MORPHINE IV PRN (04:13)
[2017-01-19] MEDS ORDERED: REGLAN IV PRN (04:13)
[2017-01-19] MEDS ORDERED: AMBIEN PO PRN (04:13)
[2017-01-19] MEDS ORDERED: PROVENTIL IH PRN (04:13)
[2017-01-19] MEDS ORDERED: ALUM-MAG HYDROX-SIMETH 200-200-20MG/5ML PO PRN (04:13)
[2017-01-19] MEDS ORDERED: NARCAN 0.4 MG/1 ML IV PRN (04:13)
[2017-01-19] MEDS ORDERED: TYLENOL PO PRN (04:13)
[2017-01-19] MEDS ORDERED: MILK OF MAGNESIA PO PRN (04:13)
[2017-01-19] MEDS ORDERED: PERCOCET 5/325 PO PRN (04:13)
[2017-01-19] MEDS ORDERED: ZOFRAN IV PRN (04:13)
[2017-01-19] MEDS ORDERED: DULCOLAX PR PRN (04:13)
--- NOTE | 2017-01-19 04:29 | History and Physical Report ---
History of Present Illness Date of examination: 01/19/17 Chief complaint: R knee swelling and pain History of present illness: The patient is a 26-year-old male presents for evaluation of pain to the right knee. The patient reports a history of recent diagnosis of septic arthritis of the right knee. He is released from hospital admission for treatment of the right knee 2 days ago. He reports recurrence of right knee swelling and pain one day ago, constant since onset, 10/10 in severity, throbbing in quality, exacerbated with weightbearing on the right knee. He states that his pain has been progressive and he has been unable to ambulate today. He also reports associated chills, night sweats, and development of generalized myalgias yesterday. Medications and Allergies Allergies Allergy/AdvReac Type Severity Reaction Status Date / Time No Known Allergies Allergy Unverified 12/25/16 12:42 Home Medications Medication Instructions Recorded Confirmed Last Taken Type Stribild Tablet 1 tab PO DAILY 01/08/17 01/08/17 Unknown History Colchicine [Colcrys] 0.6 mg PO BID #20 tablet 01/17/17 Unknown Rx oxyCODONE /ACETAMINOPHEN [Percocet 2 tab PO Q6H PRN #15 tablet 01/17/17 Unknown Rx 5/325 mg] predniSONE [Deltasone] 10 mg PO .TAPER #21 tab 01/17/17 Unknown Rx valACYclovir [Valtrex] 1,000 mg PO BID #20 tab 01/17/17 Unknown Rx Active Meds: Active Medications Acetaminophen (Tylenol) 650 mg PO Q4H PRN PRN Reason: Pain MILD(1-3)/Fever >100.5/SINGH Al Hydrox/Mg Hydrox/Simethicone (Alum-Mag Hydrox-Simeth [phone]/5ml) 30 ml PO Q4H PRN PRN Reason: Indigestion Albuterol (Proventil) 2.5 mg IH Q4HRT PRN PRN Reason: Shortness Of Breath Bisacodyl (Dulcolax) 10 mg GA QDAY PRN PRN Reason: Constipation unrelieved by MOM Colchicine (Colcrys) 0.6 mg PO BID [facility] Docusate Sodium (Colace) 100 mg PO BID [facility] Enoxaparin Sodium (Lovenox) 40 mg SUB-Q QDAY [facility] Famotidine (Pepcid) 20 mg IV BID [facility] Hydromorphone HCl (Dilaudid) 0.5 mg IV Q3H PRN PRN Reason: Pain , Severe (7-10) Vancomycin HCl (Vancomycin/Ns 1 Gm/250 Ml) 1 gm in 250 mls @ 167.007 mls/hr IV ONCE ONE PRN Reason: Protocol Stop: 01/19/17 04:31 Sodium Chloride (Nacl 0.9% 1000 Ml) 1,000 mls @ 125 mls/hr IV DIRECT BRIANNE Vancomycin HCl (Vancomycin/Ns 1 Gm/250 Ml) 1 gm in 250 mls @ 166.667 mls/hr IV Q12H [facility] Piperacillin Sod/Tazobactam Sod (Zosyn/Ns 3.375gm/50ml) 3.375 gm in 50 mls @ 100 mls/hr IV Q8HR [facility] PRN Reason: Protocol Magnesium Hydroxide (Milk Of Magnesia) 30 ml PO Q4H PRN PRN Reason: Constipation Methylprednisolone Sodium Succinate (Solu-Medrol) 40 mg IV Q8HR [facility] Metoclopramide HCl (Reglan) 10 mg IV Q6H PRN PRN Reason: Nausea And Vomiting Morphine Sulfate (Morphine) 2 mg IV Q4H PRN PRN Reason: Pain, Moderate (4-6) Naloxone HCl (Narcan 0.4 Mg/1 Ml) 0.1 mg IV Q2MIN PRN PRN Reason: Res Rate </= 8 or 02 SAT < 92% Ondansetron HCl (Zofran) 4 mg IV Q8H PRN PRN Reason: N/V unrelieved by Reglan Oxycodone/Acetaminophen (Percocet 5/325) 1 tab PO Q6H PRN PRN Reason: Pain, Moderate (4-6) Senna (Senokot) 8.6 mg PO Q12HR [facility] Valacyclovir HCl (Valtrex) 1,000 mg PO BID [facility] Vancomycin HCl (Vancomycin Pharmacy To Dose) 1 each IV PKCONSULT [facility]ANNE PRN Reason: Protocol Zolpidem Tartrate (Ambien) 5 mg PO QHS PRN PRN Reason: Insomnia Review of Systems All systems: negative (except as mentioned in HPI) Exam - Physical Exam Narrative exam: General appearance: Alert in NAD, frustrated sad Eyes: anicteric sclerae, moist conjunctivae; no lid-lag; PERRLA HENT: Atraumatic; oropharynx clear. Neck: Trachea midline; supple, no thyromegaly or lymphadenopathy Lungs: CTA, with normal respiratory effort and no intercostal retractions CV: RRR, no murmurs Abdomen: Soft, non-tender; no masses or hepatosplenomegaly Extremities: +marked edema, tenderness and heat of left knee - decreased Skin: +left gluteal induration : normal external genitalia with multiple small blister in the glans Psych: frustrated sad crying. Neuro: alert and oriented x 3. Decreased MS legs BL - Constitutional Vitals: Temp Pulse Resp BP Pulse Ox 98.5 F 105 H 18 141/87 98 01/19/17 01:30 01/19/17 01:30 01/19/17 01:30 01/19/17 01:30 01/19/17 01:30 Results - Labs CBC & Chem 7: 01/19/17 02:24 01/19/17 02:24 Labs: Laboratory Last Values WBC 9.6 K/mm3 (4.5-11.0) 01/19/17 02:24 RBC 3.52 M/mm3 (3.65-5.03) L 01/19/17 02:24 Hgb 10.9 gm/dl (11.8-15.2) L 01/19/17 02:24 Hct 31.8 % (35.5-45.6) L 01/19/17 02:24 MCV 90 fl (84-94) 01/19/17 02:24 MCH 31 pg (28-32) 01/19/17 02:24 MCHC 34 % (32-34) 01/19/17 02:24 RDW 13.8 % (13.2-15.2) 01/19/17 02:24 Plt Count 562 K/mm3 (140-440) H 01/19/17 02:24 Lymph % (Auto) 25.4 % (13.4-35.0) 01/19/17 02:24 [place] % (Auto) 10.0 % (0.0-7.3) H 01/19/17 02:24 Eos % (Auto) 0.4 % (0.0-4.3) 01/19/17 02:24 Baso % (Auto) 0.7 % (0.0-1.8) 01/19/17 02:24 Lymph # 2.4 K/mm3 (1.2-5.4) 01/19/17 02:24 [place] # 1.0 K/mm3 (0.0-0.8) H 01/19/17 02:24 Eos # 0.0 K/mm3 (0.0-0.4) 01/19/17 02:24 Baso # 0.1 K/mm3 (0.0-0.1) 01/19/17 02:24 Seg Neutrophils % 63.5 % (40.0-70.0) 01/19/17 02:24 Seg Neutrophils # 6.1 K/mm3 (1.8-7.7) 01/19/17 02:24 ESR 96 mm/Hr (0-20) 01/19/17 02:24 Sodium 135 mmol/L (137-145) L 01/19/17 02:24 Potassium 5.3 mmol/L (3.6-5.0) H 01/19/17 02:24 Chloride 98.6 mmol/L (98-107) 01/19/17 02:24 Carbon Dioxide 23 mmol/L (22-30) 01/19/17 02:24 Anion Gap 19 mmol/L 01/19/17 02:24 BUN 9 mg/dL (9-20) 01/19/17 02:24 Creatinine 0.4 mg/dL (0.8-1.5) L 01/19/17 02:24 Estimated GFR > 60 ml/min 01/19/17 02:24 BUN/Creatinine Ratio 22.50 % 01/19/17 02:24 Glucose 93 mg/dL (75-100) 01/19/17 02:24 Uric Acid 3.9 mg/dL (3.5-7.6) D 01/19/17 02:24 Calcium 8.6 mg/dL (8.4-10.2) 01/19/17 02:24 C-Reactive Protein 7.10 mg/dL (0.00-1.30) H 01/19/17 02:24 Assessment and Plan Assessment and plan: Assessment and plan - we will admit the patient to medical floor for telemetry * Right knee swelling and pain * Presumed right knee septic arthritis * Sepsis: Patient is currently afebrile. Blood cultures have been drawn. Treat the patient empirically with antibiotics Zosyn and vancomycin. Consult pharmacy for vancomycin dosing. Patient has had recent admission. Patient was not determined to have septic arthritis. His sepsis and fever had resolved after adding IV steroids. So I will also add steroids to his antibiotics for now. Most likely Etiology - likely left knee reactive arthritis +/- left gluteal abscess +/- ? acute "primary" genital HSV * Presumed reactive left knee arthritis. ? Gout ? pseudogout ? Tara - better after started on IV steroids -XR of the knee done in previous admission showed large effusion and ? avulsion of fracture. -Aspiration of the joint done during his last admission yielded cloudy fluid with WBC 36,800, RBC 25,150, 95% neutrophils, NO crystals seen. Synovial Gram stain many PMN and no organisms. Synovial culture no growth. also his Blood cx negative. GC and chlamydia in urine - negative, PAULETTE and ANCA negative * Left gluteal abscess: on/off for several months; per surgery - gluteal abscess I+D may not be necessary. CT abd pelvis during last admission showing no abscess * HIV - diagnosed in 2012, currently off ART (used to be on Stribild), stopped it 3 months ago after moving to [place] from [place]. WW7=[id number]. VL=5,691 * History of syphilis x 2, last time October 2016 treated. * Possible genital herpes Plan: Continue antibiotics as ordered -taper down steroids and then switch to by mouth prednisone at discharge -f/u HLA-B27 -continue po valtrex 1 g BID -check uric acid -normal Monitor CBC and electrolytes Database electrolytes when necessary DVT GI prophylaxis as ordered will follow the patient closely will also get infectious disease consult in a.m. for further evaluation and management. We will follow ID recommendations VTE prophylaxis?: Chemical, Mechanical Plan of care discussed with patient/family: Yes
--- NOTE | 2017-01-19 04:45 | XRay Report ---
FINAL REPORT PROCEDURE: XR KNEE 1-2V RT TECHNIQUE: RIGHT knee radiographs, AP and lateral views. CPT 82769 HISTORY: right knee pain and swelling COMPARISON: No prior studies are available for comparison. FINDINGS: The femur and patella are intact. There is a fractured exostosis of the tibial tuberosity. This could be subacute or chronic. The tibia is otherwise unremarkable. The fibula is intact. There is generalized soft tissue swelling. There is no joint effusion. IMPRESSION: There is a fractured exostosis of the tibial tuberosity. This could be subacute or chronic. There is generalized soft tissue swelling. There is no joint effusion. .
[2017-01-19] MEDS ORDERED: VANCOMYCIN/NS 1 GM/250 ML 1 GM/250 ML BAG IV SCH (05:00)
[2017-01-19] MEDS ORDERED: VANCOMYCIN PHARMACY TO DOSE IV SCH (05:00)
[2017-01-19] MEDS: DILAUDID IV PRN ×3 (06:19→22:35)
[2017-01-19] MEDS: NACL 0.9% 1000 ML 1,000 ML IV SCH ×2 (06:19→17:09)
[2017-01-19] MEDS: COLACE PO SCH ×2 (09:13→22:34)
[2017-01-19] MEDS: SENOKOT PO SCH ×2 (09:13→22:35)
[2017-01-19] MEDS: VALTREX PO SCH ×2 (09:13→22:34)
[2017-01-19] MEDS: LOVENOX SUB-Q SCH (09:13)
[2017-01-19] MEDS: PEPCID IV SCH ×2 (09:13→22:34)
[2017-01-19] MEDS: VANCOMYCIN 1,500 MG in NACL 0.9% 500 ML 500 ML IV SCH ×3 (09:14→17:51)
--- NOTE | 2017-01-19 11:19 | Progress Note ---
Assessment and Plan Assessment and plan: Reactive arthritis -Patient was recently discharged with presumed reactive left knee arthritis which improved with IV steroids. Aspiration of the joint on the last admission yielded cloudy fluid with WBC 36,800, RBC 25,150, 95% neutrophils, no crystal seen Gram stain with many PMNs but no organisms. PAULETTE and ANCA negative. GC and chlamydia and urine negative. Patient now presents on this admission with right knee swelling. Start IV steroids. Left gluteal abscess - Surgery consulted on last hospitalization - no I/D indicated HSV infection - Patient discharged with Valtrex but did not fill prescription. HIV - Patient is not on any antiretrovirals because the patient moves recently from [place] and been out of meds. - Patient needed to have follow-up as an outpatient in ID clinic History of syphilis 2, last time October 2016 treated. DVT prophylaxis History Interval history: Patient with recent discharge from the hospital for diagnosis of reactive arthritis. Patient given multiple prescriptions including prednisone. However , patient did not have the medications filled. Therefore, now patient returns with left knee swelling/pain and right hand joint pain. Hospitalist Physical - Constitutional Vitals: Temp Pulse Resp BP Pulse Ox 98.2 F 90 18 137/92 95 01/19/17 07:50 01/19/17 07:50 01/19/17 07:50 01/19/17 07:50 01/19/17 07:50 General appearance: Present: no acute distress, well-nourished - EENT Eyes: Present: PERRL, EOM intact ENT: hearing intact, clear oral mucosa, dentition normal - Neck Neck: Present: supple, normal ROM - Respiratory Respiratory effort: normal Respiratory: bilateral: CTA - Cardiovascular Rhythm: regular Heart Sounds: Present: S1 & S2. Absent: gallop, rub - Extremities Extremities: no ischemia, No edema, Full ROM - Abdominal General gastrointestinal: soft, non-tender, non-distended, normal bowel sounds - Integumentary Integumentary: Present: clear, warm, dry - Neurologic Neurologic: CNII-XII intact, moves all extremities Results - Labs CBC & Chem 7: 01/19/17 02:24 01/19/17 02:24 Labs: Laboratory Last Values WBC 9.6 K/mm3 (4.5-11.0) 01/19/17 02:24 RBC 3.52 M/mm3 (3.65-5.03) L 01/19/17 02:24 Hgb 10.9 gm/dl (11.8-15.2) L 01/19/17 02:24 Hct 31.8 % (35.5-45.6) L 01/19/17 02:24 MCV 90 fl (84-94) 01/19/17 02:24 MCH 31 pg (28-32) 01/19/17 02:24 MCHC 34 % (32-34) 01/19/17 02:24 RDW 13.8 % (13.2-15.2) 01/19/17 02:24 Plt Count 562 K/mm3 (140-440) H 01/19/17 02:24 Lymph % (Auto) 25.4 % (13.4-35.0) 01/19/17 02:24 [place] % (Auto) 10.0 % (0.0-7.3) H 01/19/17 02:24 Eos % (Auto) 0.4 % (0.0-4.3) 01/19/17 02:24 Baso % (Auto) 0.7 % (0.0-1.8) 01/19/17 02:24 Lymph # 2.4 K/mm3 (1.2-5.4) 01/19/17 02:24 [place] # 1.0 K/mm3 (0.0-0.8) H 01/19/17 02:24 Eos # 0.0 K/mm3 (0.0-0.4) 01/19/17 02:24 Baso # 0.1 K/mm3 (0.0-0.1) 01/19/17 02:24 Seg Neutrophils % 63.5 % (40.0-70.0) 01/19/17 02:24 Seg Neutrophils # 6.1 K/mm3 (1.8-7.7) 01/19/17 02:24 ESR 96 mm/Hr (0-20) 01/19/17 02:24 Sodium 135 mmol/L (137-145) L 01/19/17 02:24 Potassium 5.3 mmol/L (3.6-5.0) H 01/19/17 02:24 Chloride 98.6 mmol/L (98-107) 01/19/17 02:24 Carbon Dioxide 23 mmol/L (22-30) 01/19/17 02:24 Anion Gap 19 mmol/L 01/19/17 02:24 BUN 9 mg/dL (9-20) 01/19/17 02:24 Creatinine 0.4 mg/dL (0.8-1.5) L 01/19/17 02:24 Estimated GFR > 60 ml/min 01/19/17 02:24 BUN/Creatinine Ratio 22.50 % 01/19/17 02:24 Glucose 93 mg/dL (75-100) 01/19/17 02:24 Uric Acid 3.9 mg/dL (3.5-7.6) D 01/19/17 02:24 Calcium 8.6 mg/dL (8.4-10.2) 01/19/17 02:24 C-Reactive Protein 7.10 mg/dL (0.00-1.30) H 01/19/17 02:24
[2017-01-19] MEDS: COLCRYS PO SCH ×2 (11:50→22:34)
[2017-01-19] MEDS: ZOSYN/NS 3.375GM/50ML 3.375 GM/50 ML BAG IV SCH ×2 (11:50→17:09)
[2017-01-19] MEDS ORDERED: ZOSYN/NS 3.375GM/50ML 3.375 GM/50 ML BAG IV SCH (12:00)
--- NOTE | 2017-01-19 14:11 | Consultation ---
History of Present Illness - Reason for Consult Consult date: 01/19/17 knee pain/hiv Requesting physician: YUE MCCARTHY - History of Present Illness 26 years old male with history of HIV infection diagnosed in 2012, patient was on Stribild which was stopped 3 months ago after he moved to [place] from [place]. Patient has not established HIV care in [place] yet. Patient has a history of syphilis 2 the last time in October 2016, treated. Patient was initially admitted on 01/06/2017 due to acute onset of right knee pain at 10 out of 10 and knee swelling associated with fever. Patient denied any trauma or fall. Patient reports gout running in his family. Patient underwent knee aspiration which revealed cloudy fluid with white blood cell of 36,800, 95% neutrophils, no crystals were seen. Synovial fluid Gram stain showed multiple polymorphonuclears and no organisms. Culture was negative. Patient was placed on broad-spectrum antibiotics for about 8 days without any improvement in the fever or knee pain. Patient then was treated with iv solu-medrol which immediately caused resolution of the fever and knee pain. His CRP was found to be 25. Blood cultures were negative. Of note, he has a left gluteal small abscess that was evaluated by surgery who recommended no surgical intervention. Of note, during the last admission he reported a penile rash which was consistent with possible herpes. patient was started on valtrex. He was discharged on PO prednisone which he could not afford. This time he is also c/o right wrist edema and tenderness associated with numbness/ In the emergency room, his temperature temperature was 101.2, initial white count was 9.6, crp was 7.1. x-ray of the knee show fracture of the right tuberosity. Microbiology: Blood cultures: 01/06 neg 01/12 neg Urine cultures: Respiratory cultures: Wound cultures: Synovial: 01/06 neg Current Antimicrobials: none Past History Past Medical History: HIV/AIDS, other Past Surgical History: No surgical history Social history: single. denies: alcohol abuse, prescription drug abuse, IV drug use Medications and Allergies Allergies Allergy/AdvReac Type Severity Reaction Status Date / Time No Known Allergies Allergy Unverified 12/25/16 12:42 Home Medications Medication Instructions Recorded Confirmed Last Taken Type Stribild Tablet 1 tab PO DAILY 01/08/17 01/08/17 Unknown History Colchicine [Colcrys] 0.6 mg PO BID #20 tablet 01/17/17 Unknown Rx oxyCODONE /ACETAMINOPHEN [Percocet 2 tab PO Q6H PRN #15 tablet 01/17/17 Unknown Rx 5/325 mg] predniSONE [Deltasone] 10 mg PO .TAPER #21 tab 01/17/17 Unknown Rx valACYclovir [Valtrex] 1,000 mg PO BID #20 tab 01/17/17 Unknown Rx Active Meds: Active Medications Acetaminophen (Tylenol) 650 mg PO Q4H PRN PRN Reason: Pain MILD(1-3)/Fever >100.5/SINGH Last Admin: 01/19/17 04:54 Dose: 650 mg Al Hydrox/Mg Hydrox/Simethicone (Alum-Mag Hydrox-Simeth [id number]/5ml) 30 ml PO Q4H PRN PRN Reason: Indigestion Albuterol (Proventil) 2.5 mg IH Q4HRT PRN PRN Reason: Shortness Of Breath Bisacodyl (Dulcolax) 10 mg MD QDAY PRN PRN Reason: Constipation unrelieved by MOM Colchicine (Colcrys) 0.6 mg PO BID [facility] Last Admin: 01/19/17 11:50 Dose: 0.6 mg Docusate Sodium (Colace) 100 mg PO BID [facility] Last Admin: 01/19/17 09:13 Dose: 100 mg Enoxaparin Sodium (Lovenox) 40 mg SUB-Q QDAY [facility] Last Admin: 01/19/17 09:13 Dose: 40 mg Famotidine (Pepcid) 20 mg IV BID [facility] Last Admin: 01/19/17 09:13 Dose: 20 mg Hydromorphone HCl (Dilaudid) 0.5 mg IV Q3H PRN PRN Reason: Pain , Severe (7-10) Last Admin: 01/19/17 06:19 Dose: 0.5 mg Sodium Chloride (Nacl 0.9% 1000 Ml) 1,000 mls @ 125 mls/hr IV DIRECT [facility] Last Admin: 01/19/17 06:19 Dose: 125 mls/hr Vancomycin HCl 1,500 mg/ (Sodium Chloride) 515 mls @ 333.333 mls/hr IV Q8H [facility] Last Admin: 01/19/17 09:41 Dose: 333.333 mls/hr Piperacillin Sod/Tazobactam Sod (Zosyn/Ns 3.375gm/50ml) 3.375 gm in 50 mls @ 100 mls/hr IV Q6HR [facility] PRN Reason: Protocol Last Admin: 01/19/17 11:50 Dose: 100 mls/hr Magnesium Hydroxide (Milk Of Magnesia) 30 ml PO Q4H PRN PRN Reason: Constipation Methylprednisolone Sodium Succinate (Solu-Medrol) 40 mg IV Q8HR [facility] Last Admin: 01/19/17 13:38 Dose: 40 mg Metoclopramide HCl (Reglan) 10 mg IV Q6H PRN PRN Reason: Nausea And Vomiting Morphine Sulfate (Morphine) 2 mg IV Q4H PRN PRN Reason: Pain, Moderate (4-6) Naloxone HCl (Narcan 0.4 Mg/1 Ml) 0.1 mg IV Q2MIN PRN PRN Reason: Res Rate </= 8 or 02 SAT < 92% Ondansetron HCl (Zofran) 4 mg IV Q8H PRN PRN Reason: N/V unrelieved by Reglan Oxycodone/Acetaminophen (Percocet 5/325) 1 tab PO Q6H PRN PRN Reason: Pain, Moderate (4-6) Senna (Senokot) 8.6 mg PO Q12HR [facility] Last Admin: 01/19/17 09:13 Dose: 8.6 mg Valacyclovir HCl (Valtrex) 1,000 mg PO BID [facility] Last Admin: 01/19/17 09:13 Dose: 1,000 mg Vancomycin HCl (Vancomycin Pharmacy To Dose) 1 each IV PKCONSULT [facility] PRN Reason: Protocol Zolpidem Tartrate (Ambien) 5 mg PO QHS PRN PRN Reason: Insomnia Physical Examination - Physical Exam Narrative exam: General appearance: Alert in NAD, conversant Eyes: anicteric sclerae, moist conjunctivae; no lid-lag; PERRLA HENT: Atraumatic; oropharynx clear with moist mucous membranes and no mucosal ulcerations/no oral thrush; normal hard and soft palate. Normal external ears. Neck: Trachea midline; supple, no thyromegaly or lymphadenopathy Lungs: CTA, with normal respiratory effort and no intercostal retractions CV: RRR, no murmurs Abdomen: Soft, non-tender; no masses or hepatosplenomegaly Extremities: right knee tenderness, heat and swelling. right wrist tenderness Skin: Normal temperature, turgor and texture; no rash, ulcers or subcutaneous nodules Psych: Appropriate affect, alert and oriented to person, place and time. Neuro: alert and oriented x 3. Moving all extermities Lines: No CVL / PICC - Constitutional Vitals: Vital Signs Temp Pulse Resp BP Pulse Ox 98.2 F 90 18 137/92 99 01/19/17 07:50 01/19/17 07:50 01/19/17 07:50 01/19/17 07:50 01/19/17 11:32 Temperature -Last 24 Hours Temperature 98.2 F Temperature 98.8 F Temperature 98.8 F Temperature 101.2 F Results - Labs CBC & Chem 7: 01/19/17 02:24 01/19/17 02:24 Assessment and Plan Assessment: 1) Fever: likely from left knee reactive arthritis +/- wrist arthritis 2) Presumed reactive left knee arthritis. ? Gout ? pseudogout ? Tara - patient did not take prednisone upon discharge he could not afford. -XR of the knee showed large effusion and ? avulsion of fracture. -01/06 Aspiration of the joint yielded cloudy fluid with WBC 36,800, RBC 25,150 , 95% neutrophils, NO crystals seen. Synovial Gram stain many PMN and no organisms. Synovial culture no growth. -CRP=18 --> 25 --> 7 -Procalcitonin=0.1 -Blood cx negative. -GC and chlamydia in urine - negative -PAULETTE and ANCA negative -uric acid normal 3) Left gluteal abscess: on/off for several months; per surgery - gluteal abscess I+D may not be necessary. CT abd pelvis no abscess 4) HIV - diagnosed in 2012, currently off ART (used to be on Stribild), stopped it 3 months ago after moving to [place] from [place]. OQ5=486. VL=[id number] 5) History of syphilis x 2, last time October 2016 treated. 6) Possible genital herpes Plan: -continue IV solumedrol -monitor fever -pillowcase cleaner consult for prednisone coverage -upon discharge taper down steroids over 10 days with prednisone 20 mg BID -f/u HLA-B27 - pending -needs Rheumatology referral -needs HIV clinic f/u -continue po valtrex 1 g BID for 10 days total Thank you for your consultation, will follow up with you. Cherry Verduzco MD Infectious Diseases Specialist [facility] M [phone] O [phone]
[2017-01-20] MEDS: ZOSYN/NS 3.375GM/50ML 3.375 GM/50 ML BAG IV SCH ×2 (00:56→05:59)
[2017-01-20] MEDS: VANCOMYCIN 1,500 MG in NACL 0.9% 500 ML 500 ML IV SCH (02:30)
[2017-01-20] MEDS: NACL 0.9% 1000 ML 1,000 ML IV SCH (02:34)
[2017-01-20] MEDS: DILAUDID IV PRN ×2 (06:00→10:44)
[2017-01-20 06:01] LABS: Basophils % (Auto) 0.2 % (0.0-1.8); Eosinophils % (Auto) 0.1 % (0.0-4.3); Hemoglobin 10.3 gm/dl (11.8-15.2); Mean Corpuscular HGB Conc 34 % (32-34); Mean Corpuscular Hemoglobin 31 pg (28-32); Mean Corpuscular Volume 91 fl (84-94); Platelet Count 521 K/mm3 (140-440); Red Blood Count 3.31 M/mm3 (3.65-5.03); Red Cell Distribution Width 14.1 % (13.2-15.2); White Blood Count 10.1 K/mm3 (4.5-11.0)
[2017-01-20 06:46] LABS: Alanine Aminotransferase 83 units/L (7-56); Albumin 3.1 g/dL (3.9-5); Albumin/Globulin Ratio 0.6 %; Alkaline Phosphatase 159 units/L (35-129); Anion Gap 18 mmol/L; Blood Urea Nitrogen 9 mg/dL (9-20); Carbon Dioxide 22 mmol/L (22-30); Chloride 103.8 mmol/L (98-107); Glucose 121 mg/dL (75-100); Potassium 4.4 mmol/L (3.6-5.0); Sodium 139 mmol/L (137-145); Total Protein 8.7 g/dL (6.3-8.2)
[2017-01-20] MEDS: VALTREX PO SCH (09:54)
[2017-01-20] MEDS: LOVENOX SUB-Q SCH (09:54)
[2017-01-20] MEDS: SENOKOT PO SCH (09:54)
[2017-01-20] MEDS: COLACE PO SCH (09:54)
[2017-01-20] MEDS: PEPCID IV SCH (09:55)
[2017-01-20] MEDS: COLCRYS PO SCH (09:56)
--- NOTE | 2017-01-20 11:31 | Discharge Summary ---
Providers - Providers Date of Admission: 01/19/17 04:13 Date of discharge: 01/20/17 Attending physician: YUE MCCARTHY 01/19/17 06:44 Consult to Wound/ET Nurse [CONS] Routine Reason For Exam: wound eval 01/19/17 11:21 Consult to Physician [CONS] Routine Consulting Provider: VANESSA BURTON Reason For Exam: sepsis Place consult to:: dr. mathur Notified:: dr. mathur Phone number called:: [phone] Was contact made?: Yes If yes, spoke with:: dr. mathur Time called:: 12:22 Primary care physician: COMPUTER SYSTEMS INFORMATION DIRECTOR Hospitalization Reason for admission: wrist and knee pain Condition: Serious Hospital course: 26 years old male with history of HIV infection diagnosed in 2012 and syphilis 2 the last time in October 2016, treated. Patient was initially admitted on 2016 due to acute onset of right knee pain at 10 out of 10 and knee swelling associated with fever. Patient denied any trauma or fall. Patient reported gout family history but he has never been diagnosed with gout. Patient underwent knee aspiration which revealed cloudy fluid with white blood cell of 36,800, 95% neutrophils, no crystals were seen. Synovial fluid Gram stain showed multiple polymorphonuclears and no organisms. Culture was negative. Patient was placed on broad-spectrum antibiotics for about 8 days without any improvement in the fever or knee pain. Patient then was treated with iv solu- medrol which immediately caused resolution of the fever and knee pain. His CRP was found to be 25. Blood cultures were negative. Of note, he has a left gluteal small abscess that was evaluated by surgery who recommended no surgical intervention. Of note, during the last admission he reported a penile rash which was consistent with possible herpes. Therefore, patient was started on valtrex. He was discharged on PO prednisone which he could not afford. On this admission, he is also c/o right wrist edema and tenderness associated with numbness. Patient was treated with IV steroids and had dramatic improvement over 24-48 hour hospitalization. Case management was consulted for assistance in medications. Patient was urged to remain diligent and medically compliant. Dedicated discharged on 32 minutes. Disposition: - TO HOME OR SELFCARE Time spent for discharge: 32 - Discharge Diagnoses (1) Reactive arthritis Status: Acute (2) Acute pain of right knee Status: Acute (3) Knee effusion, right Status: Acute (4) HIV (human immunodeficiency virus infection) Status: Chronic Core Measure Documentation - Palliative Care Palliative Care/ Comfort Measures: Not Applicable - Core Measures Any of the following diagnoses?: none Exam - Constitutional Vitals: Temp Pulse Resp BP Pulse Ox 98.5 F 84 18 136/78 93 01/20/17 07:44 01/20/17 07:44 01/20/17 07:44 01/20/17 07:44 01/20/17 07:44 General appearance: Present: no acute distress, well-nourished - EENT Eyes: Present: PERRL ENT: hearing intact, clear oral mucosa - Neck Neck: Present: supple, normal ROM - Respiratory Respiratory effort: normal Respiratory: bilateral: CTA - Cardiovascular Heart Sounds: Present: S1 & S2. Absent: rub, click - Extremities Extremities: pulses symmetrical, No edema Peripheral Pulses: within normal limits - Abdominal General gastrointestinal: Present: soft, non-tender, non-distended, normal bowel sounds Male genitourinary: Present: normal - Integumentary Integumentary: Present: clear, warm, dry - Musculoskeletal Musculoskeletal: gait normal, strength equal bilaterally - Psychiatric Psychiatric: appropriate mood/affect, intact judgment & insight - Neurologic Neurologic: CNII-XII intact, moves all extremities Plan Activity: no restrictions Weight Bearing Status: Full Weight Bearing Diet: regular Follow up with: PRIMARY CARE, [Primary Care Provider] - 3-5 Days VANESSA BURTON MD [Staff Physician] - 7 Days Prescriptions: Colchicine [Colcrys] 0.6 mg PO BID #20 tablet oxyCODONE /ACETAMINOPHEN [Percocet 5/325 mg] 1 tab PO Q6H PRN #10 tablet PRN Reason: Pain, Moderate (4-6) predniSONE [Deltasone] 10 mg PO .TAPER #21 tab valACYclovir [Valtrex] 1,000 mg PO BID #20 tab
[2017-01-20 11:53] VITALS: BP 147/85
[2017-01-20] MEDS ORDERED: PEPCID PO SCH (22:00)
== END 2017-01-20 17:30 | disposition home or self-care (01) | DRG 872 ==
LOC: ED 01:23 → 3A 04:13
PROVIDERS: ADMIT Internal Medicine Geriatric Medicine; ATTEND Hospitalist
DX: A41.9 Sepsis, unspecified organism (principal); M00.9 Pyogenic arthritis, unspecified; L02.31 Cutaneous abscess of buttock; M25.561 Pain in right knee; A60.02 Herpesviral infection of other male genital organs; M10.9 Gout, unspecified; F12.90 Cannabis use, unspecified, uncomplicated; E86.0 Dehydration; M25.461 Effusion, right knee; Z72.89 Other problems related to lifestyle
CPT/HCPCS: 36415; 80048; 80053; 84550; 85025; 85652; 86140; 99285; 99406; J1170; J1650; J2270; J2405; J2543; J2920; J3370; J7030; J7040

== ENCOUNTER 2017-01-21 04:41 | Emergency (ER) | payer SELFPAY ==
[2017-01-21] MEDS ORDERED: COLCRYS PO ONE (08:18)
[2017-01-21] MEDS ORDERED: PERCOCET 5/325 PO ONE (08:18)
--- NOTE | 2017-01-21 08:23 | Emergency Department Report ---
ED Extremity Problem HPI - General Chief complaint: Extremity Problem,Nontraumatic Stated complaint: RIGHT LEG,WRIST PAIN Time Seen by Provider: 01/21/17 07:31 Source: patient, EMS (report ) Mode of arrival: Wheelchair Limitations: No Limitations - History of Present Illness Initial comments: PT states he was dc'd from the hospital on 01-17-17 for R knee pain. PT states he was given RX at [facility] and when he went to fill them, they would have cost $231. PT states he could not afford this. He tried to do without his RX but his pain returned and hem came back to the ED 01-19-17. PT was admitted and dc'd yesterday. PT states he was feeling pretty good and he went to get his new RX at [facility]. PT states that will cost $8 and he can afford, however, they wont be ready until Sunday. PT states he took a pain pill last night before going to bed (around 2330) PT states he woke up this morning to use the bathroom and the pain and stiffness returned to his R knee and R wrist. PT denies injury or trauma PT states the doctors aren't sure what is wrong and that he was told he may have gout. PT states he has been avoiding foods that may trigger gout. PT states he has a family hx of gout MD Complaint: joint swelling, joint paint -: During the night Time: 03:00 Location: right, upper extremity (wrist ), lower extremity History of Same: Yes -: No fever Severity scale (0 -10): 10 Quality: sharp Consistency: constant Improves with: nothing Worsens with: weight bearing, walking, palpation Associated Symptoms: denies other symptoms, arthralgias. denies: fever, myalgias - Related Data Home Medications Medication Instructions Recorded Confirmed Last Taken Stribild Tablet 1 tab PO DAILY 01/08/17 01/08/17 Unknown Previous Rx's Medication Instructions Recorded Last Taken Type Colchicine [Colcrys] 0.6 mg PO BID #20 tablet 01/20/17 Unknown Rx oxyCODONE /ACETAMINOPHEN [Percocet 1 tab PO Q6H PRN #10 tablet 01/20/17 Unknown Rx 5/325 mg] predniSONE [Deltasone] 10 mg PO .TAPER #21 tab 01/20/17 Unknown Rx valACYclovir [Valtrex] 1,000 mg PO BID #20 tab 01/20/17 Unknown Rx Allergies Allergy/AdvReac Type Severity Reaction Status Date / Time No Known Allergies Allergy Unverified 12/25/16 12:42 ED Review of Systems ROS: Stated complaint: RIGHT LEG,WRIST PAIN Other details as noted in HPI Comment: All other systems reviewed and negative Constitutional: denies: fever, malaise, weakness Cardiovascular: denies: chest pain Gastrointestinal: denies: abdominal pain, nausea, vomiting Musculoskeletal: as per HPI, joint swelling Skin: denies: change in color ED Past Medical Hx - Past Medical History Previous Medical History?: Yes Hx Congestive Heart Failure: No Hx Diabetes: No Hx Asthma: No Hx COPD: No Hx HIV: Yes Additional medical history: gout - Surgical History Additional Surgical History: HERNIA - Social History Smoking Status: Current Some Day Smoker - Medications Home Medications: Home Medications Medication Instructions Recorded Confirmed Last Taken Type Stribild Tablet 1 tab PO DAILY 01/08/17 01/08/17 Unknown History Colchicine [Colcrys] 0.6 mg PO BID #20 tablet 01/20/17 Unknown Rx oxyCODONE /ACETAMINOPHEN [Percocet 1 tab PO Q6H PRN #10 tablet 01/20/17 Unknown Rx 5/325 mg] predniSONE [Deltasone] 10 mg PO .TAPER #21 tab 01/20/17 Unknown Rx valACYclovir [Valtrex] 1,000 mg PO BID #20 tab 01/20/17 Unknown Rx ED Physical Exam - General Limitations: No Limitations General appearance: alert, in no apparent distress - Head Head exam: Present: atraumatic, normocephalic, normal inspection - Eye Eye exam: Present: normal appearance, PERRL, EOMI. Absent: conjunctival injection - ENT ENT exam: Present: normal exam, mucous membranes moist, normal external ear exam - Neck Neck exam: Present: normal inspection, full ROM - Respiratory Respiratory exam: Present: normal lung sounds bilaterally. Absent: respiratory distress, wheezes, rales, rhonchi, stridor - Cardiovascular Cardiovascular Exam: Present: regular rate, normal rhythm, normal heart sounds - GI/Abdominal GI/Abdominal exam: Present: soft. Absent: tenderness - Extremities Exam Extremities exam: Present: tenderness, normal capillary refill, joint swelling. Absent: pedal edema, calf tenderness - Expanded Upper Extremity Exam Left General: Present: normal inspection Right Shoulder Exam: Present: normal inspection, full ROM Upper Arm exam: Present: normal inspection, full ROM. Absent: tenderness Elbow exam: Present: normal inspection, full ROM. Absent: tenderness Forearm Wrist exam: Present: normal inspection, full ROM, tenderness (to the mid ant aspect of wrist ) Vascular: Present: normal capillary refill, radial pulse. Absent: vascular compromise - Expanded Lower Extremity Exam Left Knee exam: Present: normal inspection, full ROM. Absent: tenderness Right Upper Leg exam: Present: normal inspection, full ROM. Absent: tenderness Knee exam: Present: tenderness, swelling, full knee extension. Absent: full ROM , abrasion, laceration, ecchymosis, deformity, crepidus, erythema (no warmth ) Lower Leg exam: Present: normal inspection, full ROM. Absent: tenderness, swelling, palpable cord, [place]'s sign Ankle exam: Present: normal inspection, full ROM. Absent: tenderness Foot/Toe exam: Present: normal inspection, full ROM. Absent: tenderness Neuro vascular tendon exam: Present: no vascular compromise - Back Exam Back exam: Present: normal inspection, full ROM - Neurological Exam Neurological exam: Present: alert, oriented X3 - Psychiatric Psychiatric exam: Present: normal affect, normal mood - Skin Skin exam: Present: warm, dry, intact, normal color ED Course Vital Signs 01/21/17 01/21/17 01/21/17 04:59 06:14 10:45 Temperature 97.8 F 97.8 F 98.4 F Pulse Rate 86 86 104 H Respiratory 18 18 18 Rate Blood Pressure 155/91 155/91 Blood Pressure 134/79 [Left] O2 Sat by Pulse 99 99 98 Oximetry 01/21/17 16:55 Temperature 98.4 F Pulse Rate 92 H Respiratory 18 Rate Blood Pressure Blood Pressure 126/75 [Left] O2 Sat by Pulse 97 Oximetry VSS. pt afebrile - Reevaluation(s) Reevaluation #1: 01/21/17 08:27 reviewed previous admission records. PT was getting Solumedrol q 6 hrs while inpt. PT's last dose was 01-20-17 at 0600. PT has not had any steroids for over 24 hrs. PT's R knee does not appear septic, no erythema, no warmth. PT looks well and feels well, other than joint pain. Will treat pt's pain and re- evaluate. Reevaluation #2: 01/21/17 14:40 Pt states he is feeling better. PT states his knee pain has improved sp Morphine. PT aware of lab results. PT states he has talked to his mother and he will be flying home to [place] on Sunday. PT states he has insurance in [place] and he has his doctors. Reevaluation #3: 01/21/17 16:06 PT resting comfortably on stretcher. PT aware awaiting ID call back Reevaluation #4: 01/21/17 17:08 PT states his pain is well controlled PT States his grandfather is coming to pick him up. PT aware ID has been consulted but has not returned call. PT wanting to go home. PT states he will see if her RX medication is ready for burr picker today. PT states if not, he can burr picker RX tomorrow. PT states he wants to follow up with ID in [place]. PT given strict return precautions. - Consultations Consultation #1: 01/21/17 14:58 Dr Burns, ID called - Pulse Oximetry Interpretation Digit-Finger Initial Pulse Oximetry Readin Actions Taken: none ED Medical Decision Making - Lab Data Result diagrams: 01/21/17 12:41 01/21/17 12:41 Lab Results 01/21/17 01/21/17 Range/Units 12:41 12:41 WBC 10.3 (4.5-11.0) K/mm3 RBC 3.60 L (3.65-5.03) M/mm3 Hgb 10.9 L (11.8-15.2) gm/dl Hct 32.6 L (35.5-45.6) % MCV 91 (84-94) fl MCH 30 (28-32) pg MCHC 33 (32-34) % RDW 14.1 (13.2-15.2) % Plt Count 568 H (140-440) K/mm3 Lymph % (Auto) 11.1 L (13.4-35.0) % [place] % (Auto) 2.4 (0.0-7.3) % Eos % (Auto) 0.2 (0.0-4.3) % Baso % (Auto) 0.2 (0.0-1.8) % Lymph # 1.1 L (1.2-5.4) K/mm3 [place] # 0.2 (0.0-0.8) K/mm3 Eos # 0.0 (0.0-0.4) K/mm3 Baso # 0.0 (0.0-0.1) K/mm3 Seg Neutrophils % 86.1 H (40.0-70.0) % Seg Neutrophils # 8.9 H (1.8-7.7) K/mm3 Sodium 137 (137-145) mmol/L Potassium 4.4 (3.6-5.0) mmol/L Chloride 99.8 (98-107) mmol/L Carbon Dioxide 25 (22-30) mmol/L Anion Gap 17 mmol/L BUN 11 (9-20) mg/dL Creatinine 0.5 L (0.8-1.5) mg/dL Estimated GFR > 60 ml/min BUN/Creatinine Ratio 22.00 % Glucose 108 H (75-100) mg/dL Calcium 9.0 (8.4-10.2) mg/dL Total Bilirubin 0.90 (0.1-1.2) mg/dL AST 107 H (5-40) units/L ALT 155 H (7-56) units/L Alkaline Phosphatase 174 H (35-129) units/L C-Reactive Protein 3.80 H (0.00-1.30) mg/dL Total Protein 8.4 H (6.3-8.2) g/dL Albumin 3.4 L (3.9-5) g/dL Albumin/Globulin Ratio 0.7 % CRP decreased from previous. Lab work drawn after pt took APAP - Differential Diagnosis gout, effusion, oa Critical Care Time: No Critical care attestation.: If time is entered above; I have spent that time in minutes in the direct care of this critically ill patient, excluding procedure time. ED Disposition Clinical Impression: Pain and swelling of right knee, Acute pain of right wrist, Elevated liver enzymes Disposition: TO HOME OR SELFCARE Is pt being admited?: No Does the pt Need Aspirin: No Condition: Stable Instructions: Arthralgia (ED), Acute Gouty Arthritis (ED) Additional Instructions: If your RX medication is ready today, start the Prednisone tomorrow. You were already given steroids while in the ED. I know you are planning on flying back to [place] on Wed. Follow up with your Doctors when you return to [place] However, if you feel worse, have fevers, chills, nausea, vomiting, are unable to move your joints, please return to the ED for evaluation. Avoid Tylenol and alcohol and have your liver enzymes rechecked. Referrals: PRIMARY CARE, [Primary Care Provider] - 3-5 Days SHADY BILLINGS MD [Staff Physician] - 3-5 Days Time of Disposition: 17:13
[2017-01-21] MEDS ORDERED: ZOFRAN ODT PO ONE (12:47)
[2017-01-21] MEDS ORDERED: MORPHINE IM ONE (12:48)
[2017-01-21 12:52] LABS: Basophils % (Auto) 0.2 % (0.0-1.8); Eosinophils % (Auto) 0.2 % (0.0-4.3); Hematocrit 32.6 % (35.5-45.6); Hemoglobin 10.9 gm/dl (11.8-15.2); Mean Corpuscular HGB Conc 33 % (32-34); Mean Corpuscular Hemoglobin 30 pg (28-32); Mean Corpuscular Volume 91 fl (84-94); Platelet Count 568 K/mm3 (140-440); Red Cell Distribution Width 14.1 % (13.2-15.2); White Blood Count 10.3 K/mm3 (4.5-11.0)
[2017-01-21 13:14] LABS: Alanine Aminotransferase 155 units/L (7-56); Albumin 3.4 g/dL (3.9-5); Albumin/Globulin Ratio 0.7 %; Alkaline Phosphatase 174 units/L (35-129); Anion Gap 17 mmol/L; Blood Urea Nitrogen 11 mg/dL (9-20); Carbon Dioxide 25 mmol/L (22-30); Chloride 99.8 mmol/L (98-107); Glucose 108 mg/dL (75-100); Potassium 4.4 mmol/L (3.6-5.0); Sodium 137 mmol/L (137-145); Total Protein 8.4 g/dL (6.3-8.2)
[2017-01-21] MEDS ORDERED: DECADRON PO ONE (16:56)
[2017-01-21 17:01] VITALS: BP 126/75
== END 2017-01-21 17:26 | disposition home or self-care (01) ==
LOC: ED 04:41
DX: M25.561 Pain in right knee (principal); M25.531 Pain in right wrist; R74.8 Abnormal levels of other serum enzymes; M79.89 Other specified soft tissue disorders; F17.210 Nicotine dependence, cigarettes, uncomplicated
CPT/HCPCS: 36415; 80053; 85025; 86140; 96372; 99283; J2270; J2930; J8540; Q0162

== ENCOUNTER 2017-01-25 11:15 | Emergency (ER) | payer SELFPAY ==
[2017-01-25 11:29] VITALS: BP 125/77
[2017-01-25] MEDS ORDERED: TORADOL IM ONE (16:51)
--- NOTE | 2017-01-25 16:55 | Emergency Department Report ---
ED General Adult HPI - General Chief complaint: Pain General Stated complaint: GOUT Time Seen by Provider: 01/25/17 16:39 Source: patient, EMS Mode of arrival: Ambulatory Limitations: No Limitations - History of Present Illness Initial comments: Patient is a 26 years old male with history of HIV recently diagnosed with gout , he is coming with right foot pain that's been going on for few days, he said he took his colchicine and a steroid but is not helping denied any fever no nausea no vomiting no other complaint. -: Gradual Location: lower extremity Radiation: non-radiation Quality: sharp Consistency: constant Associated Symptoms: denies other symptoms - Related Data Home Medications Medication Instructions Recorded Confirmed Last Taken Stribild Tablet 1 tab PO DAILY 01/08/17 01/08/17 Unknown Previous Rx's Medication Instructions Recorded Last Taken Type Colchicine [Colcrys] 0.6 mg PO BID #20 tablet 01/20/17 Unknown Rx oxyCODONE /ACETAMINOPHEN [Percocet 1 tab PO Q6H PRN #10 tablet 01/20/17 Unknown Rx 5/325 mg] predniSONE [Deltasone] 10 mg PO .TAPER #21 tab 01/20/17 Unknown Rx valACYclovir [Valtrex] 1,000 mg PO BID #20 tab 01/20/17 Unknown Rx Ondansetron [Zofran Odt] 4 mg PO Q8HR PRN #14 tab.rapdis 01/25/17 Unknown Rx traMADol [Ultram 50 MG tab] 50 mg PO Q4HR PRN #14 tablet 01/25/17 Unknown Rx Allergies Allergy/AdvReac Type Severity Reaction Status Date / Time No Known Allergies Allergy Unverified 12/25/16 12:42 ED Review of Systems ROS: Stated complaint: GOUT Other details as noted in HPI Comment: All other systems reviewed and negative Constitutional: denies: chills, fever Respiratory: denies: cough, orthopnea, shortness of breath, SOB with exertion Cardiovascular: denies: chest pain, palpitations, dyspnea on exertion Gastrointestinal: denies: abdominal pain, nausea, vomiting, diarrhea Musculoskeletal: arthralgia. denies: back pain, joint swelling, myalgia Skin: denies: rash, lesions Neurological: denies: headache, weakness, numbness Psychiatric: denies: depression, suicidal thoughts ED Past Medical Hx - Past Medical History Hx Congestive Heart Failure: No Hx Diabetes: No Hx Asthma: No Hx COPD: No Hx HIV: Yes Additional medical history: gout - Surgical History Additional Surgical History: HERNIA - Social History Smoking Status: Never Smoker Substance Use Type: None - Medications Home Medications: Home Medications Medication Instructions Recorded Confirmed Last Taken Type Stribild Tablet 1 tab PO DAILY 01/08/17 01/08/17 Unknown History Colchicine [Colcrys] 0.6 mg PO BID #20 tablet 01/20/17 Unknown Rx oxyCODONE /ACETAMINOPHEN [Percocet 1 tab PO Q6H PRN #10 tablet 01/20/17 Unknown Rx 5/325 mg] predniSONE [Deltasone] 10 mg PO .TAPER #21 tab 01/20/17 Unknown Rx valACYclovir [Valtrex] 1,000 mg PO BID #20 tab 01/20/17 Unknown Rx Ondansetron [Zofran Odt] 4 mg PO Q8HR PRN #14 tab.rapdis 01/25/17 Unknown Rx traMADol [Ultram 50 MG tab] 50 mg PO Q4HR PRN #14 tablet 01/25/17 Unknown Rx ED Physical Exam - General Limitations: No Limitations General appearance: alert, in no apparent distress - Head Head exam: Present: atraumatic, normocephalic - Eye Eye exam: Present: normal appearance - ENT ENT exam: Present: normal exam - Neck Neck exam: Present: normal inspection - Respiratory Respiratory exam: Present: normal lung sounds bilaterally. Absent: wheezes, rales, rhonchi - Cardiovascular Cardiovascular Exam: Present: regular rate, normal rhythm, normal heart sounds - GI/Abdominal GI/Abdominal exam: Present: soft. Absent: distended, tenderness, guarding, rebound, rigid, mass, bruit, pulsatile mass, hernia - Expanded Lower Extremity Exam Right Ankle exam: Present: normal inspection, tenderness. Absent: swelling, abrasion , laceration, ecchymosis, deformity, crepidus, dislocation, erythema Foot/Toe exam: Present: normal inspection, full ROM, tenderness. Absent: swelling, abrasion, laceration, ecchymosis, deformity Neuro vascular tendon exam: Present: no vascular compromise ED Course Vital Signs 01/25/17 11:25 Temperature 98 F Pulse Rate 103 H Respiratory 20 Rate Blood Pressure 125/77 O2 Sat by Pulse 100 Oximetry ED Medical Decision Making - Medical Decision Making The patient is calm and with acute exacerbation of his gout received Toradol and given a prescription for tramadol Critical care attestation.: If time is entered above; I have spent that time in minutes in the direct care of this critically ill patient, excluding procedure time. ED Disposition Clinical Impression: Gouty arthritis of toe of right foot Disposition: TO HOME OR SELFCARE Is pt being admited?: No Condition: Stable Instructions: Acute Gouty Arthritis (ED) Prescriptions: Ondansetron [Zofran Odt] 4 mg PO Q8HR PRN #14 tab.rapdis PRN Reason: Nausea And Vomiting traMADol [Ultram 50 MG tab] 50 mg PO Q4HR PRN #14 tablet PRN Reason: Pain Referrals: PRIMARY CARE, [Primary Care Provider] - 3-5 Days
== END 2017-01-25 17:01 | disposition home or self-care (01) ==
LOC: ED 11:15
DX: M10.071 Idiopathic gout, right ankle and foot (principal)
CPT/HCPCS: 96372; 99283; J1885

== ENCOUNTER 2017-01-29 02:14 | Emergency (ER) | payer MEDICAID ==
[2017-01-29 02:19] VITALS: BP 127/79
[2017-01-29 03:54] LABS: Anion Gap 23 mmol/L; Blood Urea Nitrogen 13 mg/dL (9-20); Calcium 9.2 mg/dL (8.4-10.2); Carbon Dioxide 20 mmol/L (22-30); Chloride 94.3 mmol/L (98-107); Glucose 105 mg/dL (75-100); Sodium 133 mmol/L (137-145)
[2017-01-29 03:58] LABS: Basophils % (Auto) 0.3 % (0.0-1.8); Eosinophils % (Auto) 0.1 % (0.0-4.3); Hematocrit 41.6 % (35.5-45.6); Hemoglobin 14.2 gm/dl (11.8-15.2); Mean Corpuscular HGB Conc 34 % (32-34); Mean Corpuscular Hemoglobin 30 pg (28-32); Mean Corpuscular Volume 89 fl (84-94); Platelet Count 323 K/mm3 (140-440); Red Blood Count 4.69 M/mm3 (3.65-5.03); Red Cell Distribution Width 14.5 % (13.2-15.2); White Blood Count 9.4 K/mm3 (4.5-11.0)
--- NOTE | 2017-01-29 04:05 | XRay Report ---
FINAL REPORT EXAM: XR KNEE 1-2V RT HISTORY: Fall/pain and swelling...RIGHT KNEE PAIN/EM TECHNIQUE: AP and lateral views of the right knee were submitted. FINDINGS: All 3 compartments appear normal. There is no evidence of fracture or joint effusion. The soft tissues are unremarkable. IMPRESSION: Within normal limits.
[2017-01-29] MEDS ORDERED: MOTRIN PO ONE (06:17)
== END 2017-01-29 03:30 | disposition left against medical advice (07) ==
LOC: ED 02:14
DX: M25.561 Pain in right knee (principal); Z53.21 Procedure and treatment not carried out due to patient leaving prior to being seen by health care provider
CPT/HCPCS: 36415; 80048; 85025; 93005; 93010